=== PATIENT | male | born 1965 | race Caucasian/White ===

== ENCOUNTER → 2019-12-29 10:03 | Outpatient (BNVA) | payer MEDICARE, SELFPAY | PROVIDERS: Family Provider Nurse Practitioner Family; PCP Nurse Practitioner Family; Visit Provider Nurse Practitioner Family | DX: E11.65 Type 2 diabetes mellitus with hyperglycemia (principal); Z12.5 Encounter for screening for malignant neoplasm of prostate; Z79.4 Long term (current) use of insulin; I10 Essential (primary) hypertension; Z86.718 Personal history of other venous thrombosis and embolism; K21.9 Gastro-esophageal reflux disease without esophagitis; Z79.01 Long term (current) use of anticoagulants | CPT/HCPCS: 80053; 80061; 82044; 83036; 85025; 85610; G0103 ==

== ENCOUNTER → 2020-04-02 13:21 | Outpatient (BNVA) | payer MEDICARE, SELFPAY | PROVIDERS: Family Provider Nurse Practitioner Family; PCP Nurse Practitioner Family; Visit Provider Nurse Practitioner Family | DX: E11.9 Type 2 diabetes mellitus without complications (principal); I10 Essential (primary) hypertension; I73.9 Peripheral vascular disease, unspecified | CPT/HCPCS: 80053; 80061; 83036; 85025; 85610 ==

== ENCOUNTER 2020-04-14 13:08 | Outpatient (CLI) | payer MEDICARE, SELFPAY | END 2020-04-14 13:09 | disposition home or self-care (01) | LOC: WOUND 13:10 | PROVIDERS: Family Provider Nurse Practitioner Family; PCP Nurse Practitioner Family; Visit Provider Nurse Practitioner Family | DX: I87.2 Venous insufficiency (chronic) (peripheral) (principal); L97.812 Non-pressure chronic ulcer of other part of right lower leg with fat layer exposed | CPT/HCPCS: 11042 ==

== ENCOUNTER 2020-04-21 11:12 | Outpatient (CLI) | payer MEDICARE, SELFPAY | END 2020-04-21 11:13 | disposition home or self-care (01) | LOC: WOUND 11:14 | PROVIDERS: Family Provider Nurse Practitioner Family; PCP Nurse Practitioner Family; Visit Provider Thoracic Surgery (Cardiothoracic Vascular Surgery) | DX: I87.2 Venous insufficiency (chronic) (peripheral) (principal); L97.812 Non-pressure chronic ulcer of other part of right lower leg with fat layer exposed | CPT/HCPCS: 11042 ==

== ENCOUNTER 2020-04-28 10:32 | Outpatient (CLI) | payer MEDICARE, SELFPAY | END 2020-04-28 10:33 | disposition home or self-care (01) | LOC: WOUND 10:33 | PROVIDERS: Family Provider Nurse Practitioner Family; PCP Nurse Practitioner Family; Visit Provider Thoracic Surgery (Cardiothoracic Vascular Surgery) | DX: I87.2 Venous insufficiency (chronic) (peripheral) (principal); L97.812 Non-pressure chronic ulcer of other part of right lower leg with fat layer exposed | CPT/HCPCS: 11042 ==

== ENCOUNTER 2020-05-03 08:52 | Outpatient (CLI) | payer MEDICARE, SELFPAY ==
--- NOTE | 2020-05-03 09:02 | USCV_ITS ---
Tal Patricia Age: 54 Gender: M : 1965 Exam Date: 05/03/2020 09:03 Ordering Phys: Clark Nieves MD (Andy) ([email or web address]) Technologist: Steve Osorio Exam Location: [facility] – [place] Indication: HISTORY: PROCEDURES: FINDINGS: There is no evidence of RIGHT deep vein thrombosis. No evidence of superficial thrombosis in the RIGHT saphenous system. No evidence of reflux was noted in the RIGHT deep venous system. Reflux was noted in the RIGHT greater saphenous vein below the knee. All other vessels appear free of reflux at this time. CONCLUSIONS No evidence of DVT in the above-mentioned identifiable veins. Significant venous reflux of greater than 500 ms(1008msec ) was noted at the below-knee greater saphenous vein segment on the right side. The vein was measuring 0.27 cm in diameter at a depth of 1.24 cm. Relatively small caliber veins on the right side. The venous dimensions and the depth from the surface are as mentioned above Dr Vanna Hernandez MD FAC (Electronically Signed) Final Date: 03 May 2020 20:41 S
== END 2020-05-03 08:53 | disposition home or self-care (01) ==
LOC: US 08:54
PROVIDERS: PCP Nurse Practitioner Family; Visit Provider Thoracic Surgery (Cardiothoracic Vascular Surgery)
DX: M79.89 Other specified soft tissue disorders (principal); L97.919 Non-pressure chronic ulcer of unspecified part of right lower leg with unspecified severity
CPT/HCPCS: 93971

== ENCOUNTER 2020-05-05 10:56 | Outpatient (CLI) | payer MEDICARE, SELFPAY | END 2020-05-05 10:57 | disposition home or self-care (01) | LOC: WOUND 10:58 | PROVIDERS: PCP Nurse Practitioner Family; Visit Provider Thoracic Surgery (Cardiothoracic Vascular Surgery) | DX: Z09 Encounter for follow-up examination after completed treatment for conditions other than malignant neoplasm (principal) | CPT/HCPCS: 99212 ==

== ENCOUNTER → 2020-07-02 09:29 | Outpatient (BNVA) | payer MEDICARE, SELFPAY | PROVIDERS: PCP Nurse Practitioner Family; Visit Provider Nurse Practitioner Family | DX: E11.9 Type 2 diabetes mellitus without complications (principal); Z79.4 Long term (current) use of insulin; Z79.01 Long term (current) use of anticoagulants; I10 Essential (primary) hypertension; R19.7 Diarrhea, unspecified; I73.9 Peripheral vascular disease, unspecified; Z68.41 Body mass index [BMI] 40.0-44.9, adult | CPT/HCPCS: 80053; 80061; 83036; 85025; 85610 ==

== ENCOUNTER → 2020-07-15 10:55 | Outpatient (BNVA) | payer MEDICARE, SELFPAY | PROVIDERS: PCP Nurse Practitioner Family; Visit Provider Nurse Practitioner Family | DX: Z79.01 Long term (current) use of anticoagulants (principal); Z86.718 Personal history of other venous thrombosis and embolism | CPT/HCPCS: 82272; 85610 ==

== ENCOUNTER → 2020-08-12 10:01 | Outpatient (BNVA) | payer MEDICARE, SELFPAY | PROVIDERS: PCP Nurse Practitioner Family; Visit Provider Nurse Practitioner Family | DX: Z86.718 Personal history of other venous thrombosis and embolism (principal) | CPT/HCPCS: 85610 ==

== ENCOUNTER → 2020-10-05 09:56 | Outpatient (BNVA) | payer MEDICARE, SELFPAY | PROVIDERS: PCP Nurse Practitioner Family; Visit Provider Nurse Practitioner Family | DX: E11.65 Type 2 diabetes mellitus with hyperglycemia (principal); Z79.4 Long term (current) use of insulin; Z79.01 Long term (current) use of anticoagulants; K21.9 Gastro-esophageal reflux disease without esophagitis; I10 Essential (primary) hypertension | CPT/HCPCS: 80053; 80061; 83036; 85025; 85610 ==

== ENCOUNTER → 2020-11-12 14:50 | Outpatient (BNVA) | payer MEDICARE, SELFPAY | PROVIDERS: PCP Nurse Practitioner Family; Visit Provider Nurse Practitioner Family | DX: Z79.01 Long term (current) use of anticoagulants (principal); Z86.718 Personal history of other venous thrombosis and embolism | CPT/HCPCS: 85610 ==

== ENCOUNTER → 2020-11-18 11:50 | Outpatient (BNVA) | payer MEDICARE, SELFPAY | PROVIDERS: PCP Nurse Practitioner Family; Visit Provider Nurse Practitioner Family | DX: Z20.828 Contact with and (suspected) exposure to other viral communicable diseases (principal); J01.40 Acute pansinusitis, unspecified | CPT/HCPCS: 87635 ==

== ENCOUNTER → 2021-01-03 09:59 | Outpatient (BNVA) | payer MEDICARE, SELFPAY | PROVIDERS: PCP Nurse Practitioner Family; Visit Provider Nurse Practitioner Family | DX: E11.65 Type 2 diabetes mellitus with hyperglycemia (principal); I10 Essential (primary) hypertension; K21.9 Gastro-esophageal reflux disease without esophagitis; J30.89 Other allergic rhinitis; M53.3 Sacrococcygeal disorders, not elsewhere classified; M67.40 Ganglion, unspecified site; Z79.4 Long term (current) use of insulin; Z79.01 Long term (current) use of anticoagulants | CPT/HCPCS: 80053; 80061; 83036; 85025; 85610 ==

== ENCOUNTER → 2021-02-01 13:55 | Outpatient (BNVA) | payer MEDICARE, SELFPAY | PROVIDERS: PCP Nurse Practitioner Family; Visit Provider Nurse Practitioner Family | DX: Z79.01 Long term (current) use of anticoagulants (principal) | CPT/HCPCS: 85610; 87070; 87075; 87077; 87184; 87205 ==

== ENCOUNTER 2021-02-03 09:23 | Outpatient (CLI) | payer MEDICARE, SELFPAY | END 2021-02-03 09:24 | disposition home or self-care (01) | LOC: WOUND 09:24 | PROVIDERS: PCP Nurse Practitioner Family; Visit Provider Nurse Practitioner Family | DX: E11.622 Type 2 diabetes mellitus with other skin ulcer (principal); L97.822 Non-pressure chronic ulcer of other part of left lower leg with fat layer exposed | CPT/HCPCS: 11042; 11045; 87070; 87176; 87205; 99212 ==

== ENCOUNTER 2021-02-10 10:14 | Outpatient (CLI) | payer MEDICARE, SELFPAY | END 2021-02-10 10:15 | disposition home or self-care (01) | LOC: WOUND 10:15 | PROVIDERS: PCP Nurse Practitioner Family; Visit Provider Nurse Practitioner Family | DX: I87.2 Venous insufficiency (chronic) (peripheral) (principal); L97.822 Non-pressure chronic ulcer of other part of left lower leg with fat layer exposed | CPT/HCPCS: 11042 ==

== ENCOUNTER 2021-02-17 10:22 | Outpatient (CLI) | payer MEDICARE, SELFPAY | END 2021-02-17 10:23 | disposition home or self-care (01) | LOC: WOUND 10:23 | PROVIDERS: PCP Nurse Practitioner Family; Visit Provider Nurse Practitioner Family | DX: Z09 Encounter for follow-up examination after completed treatment for conditions other than malignant neoplasm (principal) | CPT/HCPCS: G0463 ==

== ENCOUNTER → 2021-03-15 09:50 | Outpatient (BNVA) | payer MEDICARE, SELFPAY | PROVIDERS: PCP Nurse Practitioner Family; Visit Provider Nurse Practitioner Family | DX: L03.116 Cellulitis of left lower limb (principal); E11.65 Type 2 diabetes mellitus with hyperglycemia; M79.672 Pain in left foot; Z79.4 Long term (current) use of insulin; Z79.01 Long term (current) use of anticoagulants; Z86.718 Personal history of other venous thrombosis and embolism | CPT/HCPCS: 73630; 80053; 85025; 85610 ==

== ENCOUNTER 2021-03-17 10:57 | Emergency (ER) | payer MEDICARE, SELFPAY ==
[2021-03-17 11:11] VITALS: BP 145/84; PULSE 84; RESP 17; O2SAT 99; BMI 42.9
--- NOTE | 2021-03-17 11:25 | XRR_ITS ---
PROCEDURE INFORMATION: Exam: XR Left Knee Exam date and time: 03/17/2021 11:28 AM Age: 55 years old Clinical indication: Injury or trauma; Fall; Blunt trauma; Knee; Left TECHNIQUE: Imaging protocol: XR Left knee. Views: 3 views. COMPARISON: CTA AbdAorta Runoff Leg [id number] 05/12/2019 9:25 AM FINDINGS: Bones/joints: No fracture, dislocation or other acute bone or joint abnormalities are seen in the left knee. There are mild degenerative changes. There is prominent atherosclerotic calcification. Soft tissues: Normal. XR/XR knee LT 3V* [id number] IMPRESSION: No acute abnormality.
--- NOTE | 2021-03-17 11:25 | XRR_ITS ---
PROCEDURE INFORMATION: Exam: XR Left Ankle Exam date and time: 03/17/2021 11:26 AM Age: 55 years old Clinical indication: Injury or trauma; Fall; Blunt trauma; Ankle; Left TECHNIQUE: Imaging protocol: XR Left ankle. Views: 1 or 2 views. COMPARISON: CTA AbdAorta Runoff Leg [id number] 05/12/2019 9:25 AM FINDINGS: Bones/joints: No fracture or other acute bony abnormalities are seen. Soft tissues: There is prominent soft tissue swelling around the ankle. Vasculature: Prominent atherosclerotic calcifications are present. There are multiple calcifications in the leg from venous stasis disease. XR/XR ankle LT 2V [id number] IMPRESSION: 1. Soft tissue swelling. 2. No fracture seen.
--- NOTE | 2021-03-17 11:25 | XRR_ITS ---
PROCEDURE INFORMATION: Exam: XR Left Foot Exam date and time: 03/17/2021 11:28 AM Age: 55 years old Clinical indication: Injury or trauma; Fall; Blunt trauma; Foot; Left TECHNIQUE: Imaging protocol: XR Left foot. Views: 1 or 2 views. COMPARISON: CR XR foot LT min 3V* [id number] 03/15/2021 10:04 AM FINDINGS: Bones/joints: No fracture, dislocation or other acute bone or joint abnormalities are seen in the left foot. Soft tissues: Normal. Vasculature: Prominent atherosclerotic calcifications are present. XR/XR foot LT 2V [id number] IMPRESSION: No acute abnormality.
--- NOTE | 2021-03-17 11:26 | USCV_ITS ---
Tal Patricia Age: 55 Gender: M : 1965 Exam Date: 03/17/2021 12:11 Ordering Phys: Ronaldo Rivers MD Technologist: Jennifer Jones Exam Location: [facility] – [place] Indication: RLE PAIN H/O DVT HISTORY: Lower extremity swelling. PROCEDURES: Venous duplex imaging was performed in only the left lower extremity. The following venous structures were evaluated: common femoral vein, profunda vein, proximal portion of the greater saphenous vein, superficial femoral vein, and the popliteal vein. In addition, the posterior tibial and peroneal trunk were evaluated. Serial compression, augmentation maneuvers, and spectral Doppler flow evaluation were performed. FINDINGS: Examination was technically limited due to body habitus. No evidence of DVT seen in any vessel visualized at this time. CONCLUSIONS No evidence of left lower extremity DVT. Rodríguez Burt MD (Electronically Signed) Final Date: 17 Mar 2021 16:39 S
--- NOTE | 2021-03-17 11:57 | ED_ITS ---
HPI - Extremity Problem General: Chief complaint: Extremity Injury, Lower Stated complaint: LEG PAIN POST FALL Time Seen by Provider: 03/17/21 11:06 History of Present Illness: HPI Narrative: The patient is a 55-year-old male with past medical history diabetes, peripheral vascular disease, history of DVT on Coumadin. He complains he fell this morning and has left knee and ankle pain. The ankle pain is the worst. He says his brother caught him and he did not fall that hard. He has been treated with Bactrim for the past 2 days for cellulitis to his left dorsal foot. He says it is not getting any better. His symptoms started 7 days ago on that foot. He said he called his physician this morning who told him to come to the ER for evaluation. MD Complaint: extremity pain and extremity swelling Onset (ago): day(s) (7) Pain Consistency: constant Location: left Quality: sharp Radiation: distal Relieving factors: nothing Exacerbating factors: range of motion, weight bearing and palpation Associated symptoms: Reports no associated symptoms; Deny chest pain or fever(s) Review of Systems General: Reports: 10 or more systems reviewed and unremarkable except in HPI and below Const: Denies: fever(s), chills or fatigue Eyes: Denies: change in vision, blurry vision or eye redness ENMT: Denies: throat pain, swelling of lips/tongue, ear or mastoid pain or nasal congestion Card: Denies: chest pain, palpitations, irregular heart rhythm, edema, dyspnea on exertion or orthopnea Resp: Denies: dyspnea, productive cough or non-productive cough GI: Denies: abdominal pain, diarrhea or GI cramping : Denies: flank pain, urinary frequency or urinary urgency Musc: Reports: extremity pain, extremity swelling and joint pain; Denies: neck pain, back pain, joint redness, limited range of motion or muscle weakness Skin/Breast: Reports: other (Left lower extremity cellulitis); Denies: pruritus, erythema, skin pain or skin tenderness Neuro: Denies: headache(s), numbness in extremities, weakness in extremities, sensory changes, difficulty walking, dizziness, confusion or Slurred speech present Psych: Denies: anxiety or depression Endo: Denies: polyuria All/Imm: Denies: urticaria, throat swelling or tongue swelling FOR[facility] ED PFSH: Medical History (Updated 03/17/21 @ 14:24 by Ronaldo Rivers MD) Anticoagulant long-term use Cellulitis of both lower extremities Diabetes mellitus Erectile dysfunction GERD (gastroesophageal reflux disease) History of colon polyps Hx of deep venous thrombosis Hypertension Neuropathy PVD (peripheral vascular disease) Surgical History Hx of colonoscopy Social History Smoking and tobacco status: never smoked Second hand smoke exposure: No Alcohol intake: never Lives independently: Yes Household members: spouse Marital status: Current occupational status: retired History of recent travel: No Current gender identity: Male Physical Exam Const: COMMON NORMALS: no acute distress, average body habitus, patient oriented x3, no limitations, healthy appearing, alert and well nourished GENERAL APPEARANCE: cooperative, comfortable, well kempt and well developed ORIENTATION/CONSCIOUSNESS: Yes awake, Yes oriented to person, Yes oriented to place and Yes oriented to time HENMT: COMMON NORMALS: normocephalic, external ears normal and Normal external nose present HEAD & SCALP: normal to inspection and normocephalic NOSE: Normal external nose present EXTERNAL EAR: Yes external ears normal MOUTH: Normal oral and palatal mucosa present THROAT: posterior oropharynx normal Eye: COMMON NORMALS: Equal, round and reactive pupils present and EOMs intact bilaterally GENERAL EYE: appearance normal, both eyes and all related structures PUPIL: Yes Equal, round and reactive pupils present Neck/C-Spine: COMMON NORMALS: full ROM, no lymphadenopathy, no meningeal signs and no JVD GENERAL: Yes normal visual inspection Lymph: LYMPHATIC: no lymphadenopathy noted Chest: COMMONS NORMALS: normal inspection of the chest and normal palpation of entire chest wall Resp: COMMON NORMALS: normal respiratory effort, No retractions, No use of accessory muscles, clear to auscultation bilaterally and percussion normal EFFORT & INSPECTION: Yes able to speak in complete sentences AUSCULTATION: clear to auscultation bilaterally PERCUSSION: percussion normal Cardio: COMMON NORMALS: no JVD, regular rate, regular rhythm, S1 normal heart sound present, S2 normal heart sound present and Peripheral pulses 2+ throughout RATE: regular rate RHYTHM: regular rhythm HEART SOUNDS: S1 normal heart sound present and S2 normal heart sound present PERIPHERAL PULSES: Peripheral pulses 2+ throughout GI: COMMON NORMALS: Normal to inspection, nondistended, normoactive bowel sounds present, Soft to palpation, non-tender and no masses INSPECTION: Yes normal to inspection PALPATION: Yes Soft to palpation : COMMON NORMALS: Yes no CVA tenderness BLADDER/KIDNEY EXAM: Yes no CVA tenderness Back/Pelvis: COMMON NORMALS: no CVA tenderness, thoracic and lumbar spine normal to inspection, no thoracic nor lumbar tenderness and thoraco-lumbar ROM normal Extremity: COMMON NORMALS: normal to inspection, full ROM, capillary refill normal, no joint enlargement and no pedal edema NARRATIVE EXTREMITY EXAM: Chronically in bilateral lower extremities from the distal knee to ankles he has hyperpigmentation and some scabbing which is extensive and chronic and unchanged per himself and his brother in the room. They said from his diabetes, vascular disease and previous DVT. Left ankle mild swelling, tenderness, pain with range of motion. Major ligaments intact. On the dorsal aspect of his foot he does have some erythema a likely cellulitis extending almost to the MTP joint. GENERAL: Yes normal exam except as noted Neuro: COMMON NORMALS: patient oriented x3, CN's II-XII intact bilaterally, moves all extremities, no focal motor deficits, no sensory deficits noted and gait normal SENSORIUM/ORIENTATION: Yes alert, Yes oriented to person, Yes oriented to place and Yes oriented to time MENINGEAL SIGNS: Yes no meningeal signs Psych: COMMON NORMALS: mental status grossly normal, Normal thought process present, cooperative, normal affect and speech normal APPEARANCE: Yes well kempt ATTITUDE: Yes calm SPEECH: Yes normal speech THOUGHT PROCESS: Normal thought process present Skin: COMMON NORMALS: no rashes or lesions noted GENERAL SKIN EXAM: no rashes or lesions noted Course Vital Signs: Vital signs: Vital Signs Pulse Rate 84 03/17/21 11:11 Respiratory Rate 17 03/17/21 11:11 Blood Pressure 145/84 03/17/21 11:11 Pulse Oximetry 99 03/17/21 11:11 MDM - Extremity (Nontraumatic) MDM Narrative: Medical decision making narrative: The patient came to the ER after a fall likely related to increased pain due to his cellulitis. He has been on Bactrim for 2 days. This medication is likely just starting to take effect and it does not appear worse based on my discussion with the primary care provider. I have drawn a line on it and he has an appointment to follow-up with her tomorrow for another skin check. No DVT or fractures. Likely sprained ankle. Recommended he check his sugars, blood pressures, and bring them in a diary to his primary care provider tomorrow. ER with worsening symptoms at any time Lab Data: Labs: Lab Results 03/17/21 03/17/21 03/17/21 Range/Units 12:00 12:00 12:00 WBC 11.5 H (4.0-10.0) 10^3/ uL RBC 4.34 (4.1-5.3) 10^6/u L Hgb 13.0 (11.7-16.6) g/dL Hct 39.6 L (42.0-52.0) % MCV 91.2 (80-94) fL MCH 30.0 (28.0-34.0) pg MCHC 32.8 (30.0-36.0) g/dL RDW 13.1 (12.1-15.1) % Plt Count 228 (130-400) 10^3/c mm MPV 9.4 (7.4-10.4) fL Neut % (Auto) 83.3 % Lymph % (Auto) 8.5 % [place] % (Auto) 7.0 % Eos % (Auto) 0.3 % Baso % (Auto) 0.4 % Neut # (Auto) 9.58 H (1.8-7.7) 10^3/u L Lymph # (Auto) 1.0 (0.8-4.8) 10^3/u L [place] # (Auto) 0.8 (0.2-0.9) 10^3/u L Eos # (Auto) 0.0 (0.0-0.8) 10^3/u L Baso # (Auto) 0.1 (0.0-0.1) 10^3/u L Nucleated RBC % (a uto) 0 % Nucleated RBCs # 0.0 /100WBC PT (12.1-14.9) SECO NDS INR (0.8-1.2) Sodium 133 L (136-145) mmol/L Potassium 4.7 (3.5-5.1) mmol/L Chloride 99 (98-107) mmol/L Carbon Dioxide 24 (22-29) mmol/L Anion Gap 14.7 (5-19) BUN 17 (6-20) mg/dL Creatinine 0.4 L (0.7-1.2) mg/dL GFR Calculation 221.7 H (90-130) mL/min Glucose 291 H (65-115) mg/dL Calculated Osmolal ity 288 (285-295) mOsm/k g Lactate 1.9 (0.5-2.2) mmol/L Calcium 8.3 L (8.5-10.5) mg/dL Total Bilirubin 0.5 (0.15-1.2) mg/dL AST 13 (0-40) U/L ALT 15 (0-41) U/L Alkaline Phosphata se 72 (40-130) IU/L Total Protein 6.9 (6.6-8.7) g/dL Albumin 3.7 (3.5-5.2) g/dL Globulin 3.2 (1.3-4.6) g/dL // Range/Units 12:17 WBC (4.0-10.0) 10^3/ uL RBC (4.1-5.3) 10^6/u L Hgb (11.7-16.6) g/dL Hct (42.0-52.0) % MCV (80-94) fL MCH (28.0-34.0) pg MCHC (30.0-36.0) g/dL RDW (12.1-15.1) % Plt Count (130-400) 10^3/c mm MPV (7.4-10.4) fL Neut % (Auto) % Lymph % (Auto) % [place] % (Auto) % Eos % (Auto) % Baso % (Auto) % Neut # (Auto) (1.8-7.7) 10^3/u L Lymph # (Auto) (0.8-4.8) 10^3/u L [place] # (Auto) (0.2-0.9) 10^3/u L Eos # (Auto) (0.0-0.8) 10^3/u L Baso # (Auto) (0.0-0.1) 10^3/u L Nucleated RBC % (a uto) % Nucleated RBCs # /100WBC PT 29.60 H (12.1-14.9) SECO NDS INR 2.76 H (0.8-1.2) Sodium (136-145) mmol/L Potassium (3.5-5.1) mmol/L Chloride (98-107) mmol/L Carbon Dioxide (22-29) mmol/L Anion Gap (5-19) BUN (6-20) mg/dL Creatinine (0.7-1.2) mg/dL GFR Calculation (90-130) mL/min Glucose (65-115) mg/dL Calculated Osmolal ity (285-295) mOsm/k g Lactate (0.5-2.2) mmol/L Calcium (8.5-10.5) mg/dL Total Bilirubin (0.15-1.2) mg/dL AST (0-40) U/L ALT (0-41) U/L Alkaline Phosphata se (40-130) IU/L Total Protein (6.6-8.7) g/dL Albumin (3.5-5.2) g/dL Globulin (1.3-4.6) g/dL Discharge Plan Discharge Patient Disposition: Home Clinical Impression: Cellulitis Condition: Stable Prescriptions: No Action (DME) insulin syringe-needle U-100 [BD Insulin Syringe Ultra-Fine] 1 mL 31 gauge x 5/16 syringe See Rx Instructions .ROUTE .MEDSUPPLY Qty: 10 RF: 0 cetirizine [Zyrtec] 10 mg tablet 10 mg PO DAILY PRN (Reason: allergy symptoms) Qty: 30 RF: 11 pravastatin 40 mg tablet 40 mg PO DAILY Qty: 90 RF: 0 Januvia 100 mg tablet 100 mg PO DAILY Qty: 90 RF: 0 metformin 500 mg tablet 1,000 mg PO BID Qty: 360 RF: 0 lisinopril 20 mg tablet 20 mg PO DAILY Qty: 90 RF: 0 famotidine 20 mg tablet 20 mg PO BID Qty: 180 RF: 0 glipizide 10 mg tablet See Rx Instructions PO BID 90 Days Qty: 270 RF: 0 warfarin 1 mg tablet 1 mg PO DAILY Qty: 90 RF: 0 Levemir FlexTouch U-100 Insuln 100 unit/mL (3 mL) insulin pen See Rx Instructions .ROUTE .COMPLEX Qty: 15 RF: 2 (DME) blood-glucose meter [Blood Glucose Monitoring] Kit See Rx Instructions .ROUTE .MEDSUPPLY Qty: 1 RF: 0 sulfamethoxazole-trimethoprim [Bactrim DS] 800-160 mg tablet 1 tab PO BID 10 Days Qty: 20 RF: 0 (DME) pen needle, diabetic [BD Ultra-Fine Micro Pen Needle] 32 gauge x 1/4 needle See Rx Instructions .ROUTE .MEDSUPPLY Qty: 100 RF: 11 (DME) Free Style Jeana Marston See Rx Instructions .Route .MEDSUPPLY Qty: 1 RF: 0 (DME) Free Style Jeana Sensor See Rx Instructions .Route .MEDSUPPLY Qty: 1 RF: 0 warfarin 6 mg tablet 6 mg PO DAILY RF: 0 triamterene-hydrochlorothiazid 75-50 mg tablet 1 tab PO DAILY RF: 0 Trulicity 0.75 mg/0.5 mL pen injector 0.75 mg SUBCUT Q7D RF: 0 Discharge Orders: Discharge ED (Routine); Ordered 03/17/21 Ordered By: Ronaldo Rivers Referrals: Maureen Solorzano FNP [Primary Care Provider] - Discharge Diet: Advance as tolerated Discharge Activity: Resume usual activity Patient Instructions: Opioid Safety Activity Restrictions/Additional Instructions: You have an infection of your left foot and you have been on Bactrim for the past 2 days. It is likely the antibiotic is just starting to take effect. Please follow-up with your primary care provider tomorrow as you already have scheduled for a check on this. Also check your blood sugars before meals and your blood pressure a few times today. Write down those values and bring it to your primary care provider tomorrow. Infections cause an increase in blood sugar and you may need mealtime insulin at that time depending on what your diary shows. Return to the ER at anytime with worsening symptoms. Coding Level of Care Code ED [employer] for [facility] Exam Comprehensive
[2021-03-17 12:13] LABS: Basophils # 0.1 10^3/uL (0.0-0.1); Basophils % 0.4 %; Eosinophils % 0.3 %; Hematocrit 39.6 % (42.0-52.0); Lymphocytes % 8.5 %; Mean Corpuscular HGB Conc 32.8 g/dL (30.0-36.0); Mean Corpuscular Volume 91.2 fL (80-94); Mean Platelet Volume 9.4 fL (7.4-10.4); Monocytes # 0.8 10^3/uL (0.2-0.9); Neutrophils # 9.58 10^3/uL (1.8-7.7); Neutrophils % 83.3 %; Nucleated Red Blood Cells % 0 %; Platelet Count 228 10^3/cmm (130-400); Red Blood Count 4.34 10^6/uL (4.1-5.3); Red Cell Distribution Width 13.1 % (12.1-15.1); White Blood Count 11.5 10^3/uL (4.0-10.0)
[2021-03-17 12:30] LABS: Lactate (Lactic Acid level) 1.9 mmol/L (0.5-2.2)
[2021-03-17 12:31] LABS: Alanine Aminotransferase 15 U/L (0-41); Albumin Level 3.7 g/dL (3.5-5.2); Alkaline Phosphatase 72 IU/L (40-130); Anion Gap 14.7 (5-19); Aspartate Amino Transferase 13 U/L (0-40); Blood Urea Nitrogen 17 mg/dL (6-20); Calcium 8.3 mg/dL (8.5-10.5); Carbon Dioxide 24 mmol/L (22-29); Chloride 99 mmol/L (98-107); Globulin 3.2 g/dL (1.3-4.6); Glomerular Filtration Rate 221.7 mL/min (90-130); Glucose 291 mg/dL (65-115); Osmolality Calculated 288 mOsm/kg (285-295); Potassium 4.7 mmol/L (3.5-5.1); Sodium 133 mmol/L (136-145); Total Bilirubin 0.5 mg/dL (0.15-1.2); Total Protein 6.9 g/dL (6.6-8.7)
[2021-03-17 12:34] LABS: INR 2.76 (0.8-1.2)
[2021-03-17] MEDS: vancomycin 1,000 MG in sodium chloride 0.9% 250 ML 250 MG IV (12:50)
== END 2021-03-17 14:38 | disposition home or self-care (01) ==
PROVIDERS: Emergency Provider Family Medicine; PCP Nurse Practitioner Family
DX: L03.116 Cellulitis of left lower limb (principal); Z79.01 Long term (current) use of anticoagulants; Z79.4 Long term (current) use of insulin; E11.40 Type 2 diabetes mellitus with diabetic neuropathy, unspecified; I73.9 Peripheral vascular disease, unspecified; I10 Essential (primary) hypertension
CPT/HCPCS: 36415; 73562; 73600; 73620; 80053; 83605; 85025; 85610; 87040; 87205; 93971; 96365; 96372; 99284; J1815; J3370; J7050

== ENCOUNTER 2021-03-25 14:23 | Outpatient (CLI) | payer MEDICARE, SELFPAY | END 2021-03-25 14:24 | disposition home or self-care (01) | LOC: WOUND 14:24 | PROVIDERS: PCP Nurse Practitioner Family; Visit Provider Surgery | DX: I96 Gangrene, not elsewhere classified (principal); L97.329 Non-pressure chronic ulcer of left ankle with unspecified severity | CPT/HCPCS: 10060; 11043; 87070; 87077; 87186; G0463 ==

== ENCOUNTER 2021-04-01 14:14 | Outpatient (CLI) | payer MEDICARE, SELFPAY | END 2021-04-01 14:15 | disposition home or self-care (01) | LOC: WOUND 14:15 | PROVIDERS: PCP Nurse Practitioner Family; Visit Provider Surgery | DX: L97.422 Non-pressure chronic ulcer of left heel and midfoot with fat layer exposed (principal); L97.812 Non-pressure chronic ulcer of other part of right lower leg with fat layer exposed | CPT/HCPCS: 11042; 97597; 97598 ==

== ENCOUNTER → 2021-04-04 09:23 | Outpatient (BNVA) | payer MEDICARE, SELFPAY | PROVIDERS: PCP Nurse Practitioner Family; Visit Provider Nurse Practitioner Family | DX: E11.65 Type 2 diabetes mellitus with hyperglycemia (principal); Z79.4 Long term (current) use of insulin; Z12.5 Encounter for screening for malignant neoplasm of prostate; I73.9 Peripheral vascular disease, unspecified; J30.89 Other allergic rhinitis; I10 Essential (primary) hypertension; K21.9 Gastro-esophageal reflux disease without esophagitis; Z79.01 Long term (current) use of anticoagulants; Z12.11 Encounter for screening for malignant neoplasm of colon | CPT/HCPCS: 80053; 80061; 82043; 83036; 85025; 85610; G0103 ==

== ENCOUNTER 2021-04-08 14:06 | Outpatient (CLI) | payer MEDICARE, SELFPAY | END 2021-04-08 14:07 | disposition home or self-care (01) | LOC: WOUND 14:07 | PROVIDERS: PCP Nurse Practitioner Family; Visit Provider Nurse Practitioner Family | DX: I87.2 Venous insufficiency (chronic) (peripheral) (principal); L97.322 Non-pressure chronic ulcer of left ankle with fat layer exposed; L97.812 Non-pressure chronic ulcer of other part of right lower leg with fat layer exposed | CPT/HCPCS: 11042 ==

== ENCOUNTER 2021-04-15 14:53 | Outpatient (CLI) | payer MEDICARE, SELFPAY | END 2021-04-15 14:54 | disposition home or self-care (01) | LOC: WOUND 14:55 | PROVIDERS: PCP Nurse Practitioner Family; Visit Provider Surgery | DX: I87.2 Venous insufficiency (chronic) (peripheral) (principal); L97.322 Non-pressure chronic ulcer of left ankle with fat layer exposed; L97.812 Non-pressure chronic ulcer of other part of right lower leg with fat layer exposed | CPT/HCPCS: 11042; 97597 ==

== ENCOUNTER 2021-04-22 14:52 | Outpatient (CLI) | payer MEDICARE, SELFPAY | END 2021-04-22 14:53 | disposition home or self-care (01) | LOC: WOUND 14:53 | PROVIDERS: PCP Nurse Practitioner Family; Visit Provider Surgery | DX: I87.2 Venous insufficiency (chronic) (peripheral) (principal); L97.322 Non-pressure chronic ulcer of left ankle with fat layer exposed; L97.812 Non-pressure chronic ulcer of other part of right lower leg with fat layer exposed | CPT/HCPCS: 11042 ==

== ENCOUNTER 2021-04-29 14:08 | Outpatient (CLI) | payer MEDICARE, SELFPAY | END 2021-04-29 14:09 | disposition home or self-care (01) | LOC: WOUND 14:09 | PROVIDERS: PCP Nurse Practitioner Family; Visit Provider Nurse Practitioner Family | DX: I87.2 Venous insufficiency (chronic) (peripheral) (principal); L97.322 Non-pressure chronic ulcer of left ankle with fat layer exposed | CPT/HCPCS: 11042 ==

== ENCOUNTER 2021-05-13 08:57 | Outpatient (CLI) | payer MEDICARE, SELFPAY | END 2021-05-13 08:58 | disposition home or self-care (01) | LOC: WOUND 08:58 | PROVIDERS: PCP Nurse Practitioner Family; Visit Provider Surgery | DX: I87.2 Venous insufficiency (chronic) (peripheral) (principal); L97.322 Non-pressure chronic ulcer of left ankle with fat layer exposed; L97.812 Non-pressure chronic ulcer of other part of right lower leg with fat layer exposed | CPT/HCPCS: 11042; 97597 ==

== ENCOUNTER 2021-05-20 09:24 | Outpatient (CLI) | payer MEDICARE, SELFPAY | END 2021-05-20 09:25 | disposition home or self-care (01) | LOC: WOUND 09:25 | PROVIDERS: PCP Nurse Practitioner Family; Visit Provider Surgery | DX: I87.2 Venous insufficiency (chronic) (peripheral) (principal); L97.322 Non-pressure chronic ulcer of left ankle with fat layer exposed; L97.812 Non-pressure chronic ulcer of other part of right lower leg with fat layer exposed | CPT/HCPCS: 11042; 97597 ==

== ENCOUNTER 2021-06-03 08:09 | Outpatient (CLI) | payer MEDICARE, SELFPAY | END 2021-06-03 08:10 | disposition home or self-care (01) | LOC: WOUND 08:10 | PROVIDERS: PCP Nurse Practitioner Family; Visit Provider Surgery | DX: Z09 Encounter for follow-up examination after completed treatment for conditions other than malignant neoplasm (principal) | CPT/HCPCS: 99212 ==

== ENCOUNTER → 2021-07-01 09:15 | Outpatient (BNVA) | payer MEDICARE, SELFPAY | PROVIDERS: PCP Nurse Practitioner Family; Visit Provider Nurse Practitioner Family | DX: E11.65 Type 2 diabetes mellitus with hyperglycemia (principal); I10 Essential (primary) hypertension; Z79.4 Long term (current) use of insulin; Z79.01 Long term (current) use of anticoagulants | CPT/HCPCS: 80053; 80061; 83036; 85025; 85610 ==

== ENCOUNTER → 2021-09-28 10:18 | Outpatient (BNVA) | payer MEDICARE, SELFPAY | PROVIDERS: PCP Nurse Practitioner Family; Visit Provider Nurse Practitioner Family | DX: E11.65 Type 2 diabetes mellitus with hyperglycemia (principal); M25.562 Pain in left knee; R19.00 Intra-abdominal and pelvic swelling, mass and lump, unspecified site; Z79.4 Long term (current) use of insulin; G89.29 Other chronic pain; I10 Essential (primary) hypertension; Z79.01 Long term (current) use of anticoagulants | CPT/HCPCS: 73562; 80053; 80061; 83036; 84443; 85025 ==

== ENCOUNTER 2022-02-15 09:03 | Outpatient (CLI) | payer MEDICARE, SELFPAY ==
--- NOTE | 2022-02-15 09:30 | MR_ITS ---
WS: [id number] MRI LUMBAR SPINE NONCONTRAST HISTORY: M54.42 - Lumbago with sciatica, left side COMPARISON: 06/11/2008 TECHNIQUE: Sagittal and axial multisequence imaging is submitted. Normal posterior lumbar alignment. No marrow edema or fracture. Mild disc desiccation with loss of height at L4-5 and L5-S1. Conus terminates normally at L1. T12-L1: Facet joint arthritis and ligamentum flavum hypertrophy encroaches into the posterior lateral thecal sac. L1-L2: Mild ligamentum flavum disease and facet joint arthritis. Very minimal narrowing of the LEFT f oramen. L2-L3: Mild ligamentum flavum hypertrophy and facet arthritis. Thecal sac is small but no significant stenosis. There is mild bilateral foraminal stenosis, LEFT slightly greater than RIGHT. L3-L4: Very mild annular disc bulging with moderate ligamentum flavum and facet arthritis. Disc conta cts the ventral thecal sac and also the traversing L4 nerve roots, RIGHT greater than LEFT. Mild suba rticular recess and foraminal stenosis. L4-L5: Diffuse asymmetric disc bulging extends greatest to the RIGHT with a focal RIGHT foraminal dis c protrusion and osteophytic ridging. Ligamentum flavum hypertrophy and facet arthritis. Small amount of fluid in the facet joints. Moderate central and bilateral subarticular recess stenosis has progre ssed since the prior study. There is moderate RIGHT foraminal stenosis with the disc and osteophyte c ontacting the RIGHT L4 and L5 nerve roots. Mild to moderate stenosis of the LEFT foramen. L5-S1: Mild annular disc bulging and osteophytic ridging. Mild facet and ligamentum flavum hypertroph y. There is mild disc and osteophyte contact on the ventral thecal sac and S1 nerve roots. Moderate R IGHT and mild LEFT foraminal stenosis. Fatty replacement with loss of psoas muscle volume. There is a large cystic area within the pelvis me asuring greater than 18 cm in length. This is probably the urinary bladder but it is markedly distend ed. MR/MR lumbar spine wo con* [id number] IMPRESSION: 1. RIGHT foraminal stenosis at L4-5 with disc osteophyte contacting the nerve roots. Very similar to the prior examination. 2. Moderate central and bilateral subarticular recess stenosis with mild to mo derate LEFT foraminal stenosis at L4-5. Mild progression since the prior study. 3. Moderate RIGHT and mild LEFT foraminal stenosis at L5-S1. Mild contact on t he S1 nerve roots bilaterally. 4. Mild bilateral foraminal stenosis at L2-3, LEFT greater than RIGHT. 5. Mild central, subarticular recess and foraminal stenosis L3-4. Very mild co ntact on the traversing L4 nerve roots. 6. There is a large cystic structure in the pelvis extending over length of 18 cm. Favor this is probably an overly distended, neurogenic urinary bladder.
== END 2022-02-15 09:04 | disposition home or self-care (01) ==
LOC: RAD 09:06
PROVIDERS: PCP Nurse Practitioner Family; Visit Provider Nurse Practitioner Family
DX: M54.41 Lumbago with sciatica, right side (principal); M54.42 Lumbago with sciatica, left side; M48.061 Spinal stenosis, lumbar region without neurogenic claudication; M25.78 Osteophyte, vertebrae; M48.07 Spinal stenosis, lumbosacral region
CPT/HCPCS: 72148

== ENCOUNTER → 2022-02-22 09:36 | Outpatient (BNVA) | payer MEDICARE, SELFPAY | PROVIDERS: PCP Nurse Practitioner Family; Visit Provider Nurse Practitioner Family | DX: Z12.5 Encounter for screening for malignant neoplasm of prostate (principal); G62.9 Polyneuropathy, unspecified; E11.65 Type 2 diabetes mellitus with hyperglycemia; Z79.4 Long term (current) use of insulin; S81.802A Unspecified open wound, left lower leg, initial encounter | CPT/HCPCS: 80053; 80061; 82043; 82306; 82607; 83036; 83735; 84550; 85025; 85651; 86038; 86140; 86200; 86431; 87070; 87075; 87205; G0103 ==

== ENCOUNTER → 2022-02-23 17:58 | Outpatient (BNVA) | payer MEDICARE, SELFPAY | PROVIDERS: PCP Nurse Practitioner Family; Visit Provider Nurse Practitioner Family | DX: G62.9 Polyneuropathy, unspecified (principal); E11.65 Type 2 diabetes mellitus with hyperglycemia; Z79.4 Long term (current) use of insulin; S81.802A Unspecified open wound, left lower leg, initial encounter; R26.81 Unsteadiness on feet; I73.9 Peripheral vascular disease, unspecified; M54.42 Lumbago with sciatica, left side; M54.41 Lumbago with sciatica, right side; Z86.718 Personal history of other venous thrombosis and embolism; N31.9 Neuromuscular dysfunction of bladder, unspecified; R53.83 Other fatigue; Z12.5 Encounter for screening for malignant neoplasm of prostate | CPT/HCPCS: 84403 ==

== ENCOUNTER → 2022-02-28 12:57 | Outpatient (BNVA) | payer MEDICARE, SELFPAY | PROVIDERS: PCP Nurse Practitioner Family; Referring Provider Nurse Practitioner Family; Visit Provider Physician Assistant | DX: M54.42 Lumbago with sciatica, left side (principal); M54.41 Lumbago with sciatica, right side; M51.36 Other intervertebral disc degeneration, lumbar region; E11.65 Type 2 diabetes mellitus with hyperglycemia; Z79.4 Long term (current) use of insulin; L60.3 Nail dystrophy; I73.9 Peripheral vascular disease, unspecified | CPT/HCPCS: 72100; 99204; 99999 ==

== ENCOUNTER → 2022-06-13 07:46 | Outpatient (BNVA) | payer MEDICARE, SELFPAY | PROVIDERS: PCP Nurse Practitioner Family; Visit Provider Nurse Practitioner Family | DX: E11.65 Type 2 diabetes mellitus with hyperglycemia (principal); E53.8 Deficiency of other specified B group vitamins; E55.9 Vitamin D deficiency, unspecified; I10 Essential (primary) hypertension; Z79.4 Long term (current) use of insulin; E11.9 Type 2 diabetes mellitus without complications | CPT/HCPCS: 80053; 80061; 82306; 82607; 83036; 84443; 85025 ==

== ENCOUNTER → 2022-06-21 12:58 | Outpatient (BNVA) | payer MEDICARE, SELFPAY | PROVIDERS: PCP Nurse Practitioner Family; Visit Provider Nurse Practitioner Family | DX: E11.65 Type 2 diabetes mellitus with hyperglycemia (principal); Z79.4 Long term (current) use of insulin; R06.02 Shortness of breath; L97.929 Non-pressure chronic ulcer of unspecified part of left lower leg with unspecified severity; R19.7 Diarrhea, unspecified; I10 Essential (primary) hypertension; Z86.718 Personal history of other venous thrombosis and embolism; R60.9 Edema, unspecified; R05.9 Cough, unspecified; G62.9 Polyneuropathy, unspecified; R19.5 Other fecal abnormalities; E55.9 Vitamin D deficiency, unspecified | CPT/HCPCS: 87070; 87075; 87205 ==

== ENCOUNTER → 2022-06-26 11:14 | Outpatient (BNVA) | payer MEDICARE, MEDICAID, SELFPAY | PROVIDERS: PCP Nurse Practitioner Family; Visit Provider Nurse Practitioner Family | DX: R19.7 Diarrhea, unspecified (principal) | CPT/HCPCS: 82270; 83630; 87338; 87493; 87506 ==

== ENCOUNTER → 2022-06-27 09:38 | Outpatient (BNVA) | payer MEDICARE, MEDICAID, SELFPAY | PROVIDERS: PCP Nurse Practitioner Family; Visit Provider Thoracic Surgery (Cardiothoracic Vascular Surgery) | DX: I96 Gangrene, not elsewhere classified (principal); E11.622 Type 2 diabetes mellitus with other skin ulcer; L97.822 Non-pressure chronic ulcer of other part of left lower leg with fat layer exposed | CPT/HCPCS: 97597; 99213 ==

== ENCOUNTER → 2022-07-10 07:35 | Outpatient (BNVA) | payer MEDICARE, MEDICAID, SELFPAY | PROVIDERS: PCP Nurse Practitioner Family; Visit Provider Nurse Practitioner Family | DX: I10 Essential (primary) hypertension (principal) | CPT/HCPCS: 80048 ==

== ENCOUNTER → 2022-07-18 10:13 | Outpatient (BNVA) | payer MEDICARE, MEDICAID, SELFPAY | PROVIDERS: PCP Nurse Practitioner Family; Visit Provider Thoracic Surgery (Cardiothoracic Vascular Surgery) | DX: E11.622 Type 2 diabetes mellitus with other skin ulcer (principal); L97.822 Non-pressure chronic ulcer of other part of left lower leg with fat layer exposed; I87.2 Venous insufficiency (chronic) (peripheral) | CPT/HCPCS: 97597 ==

== ENCOUNTER → 2022-07-21 11:45 | Outpatient (BNVA) | payer MEDICARE, MEDICAID, SELFPAY | PROVIDERS: PCP Nurse Practitioner Family; Visit Provider Family Medicine | DX: E87.6 Hypokalemia (principal); R60.9 Edema, unspecified | CPT/HCPCS: 80048 ==

== ENCOUNTER → 2022-07-25 12:23 | Outpatient (BNVA) | payer MEDICARE, MEDICAID, SELFPAY | PROVIDERS: PCP Nurse Practitioner Family; Referring Provider Nurse Practitioner Family; Visit Provider Specialist | DX: E11.40 Type 2 diabetes mellitus with diabetic neuropathy, unspecified (principal); E66.01 Morbid (severe) obesity due to excess calories; I87.2 Venous insufficiency (chronic) (peripheral); Z79.4 Long term (current) use of insulin; Z68.35 Body mass index [BMI] 35.0-35.9, adult | CPT/HCPCS: 99205 ==

== ENCOUNTER → 2022-08-01 09:45 | Outpatient (BNVA) | payer MEDICARE, MEDICAID, SELFPAY | PROVIDERS: PCP Nurse Practitioner Family; Visit Provider Nurse Practitioner Family | DX: E11.622 Type 2 diabetes mellitus with other skin ulcer (principal); I87.2 Venous insufficiency (chronic) (peripheral); L97.821 Non-pressure chronic ulcer of other part of left lower leg limited to breakdown of skin; Z09 Encounter for follow-up examination after completed treatment for conditions other than malignant neoplasm | CPT/HCPCS: 11042 ==

== ENCOUNTER → 2022-08-08 08:50 | Outpatient (BNVA) | payer MEDICARE, MEDICAID, SELFPAY | PROVIDERS: PCP Nurse Practitioner Family; Visit Provider Nurse Practitioner Family | DX: I96 Gangrene, not elsewhere classified; E11.622 Type 2 diabetes mellitus with other skin ulcer; L97.811 Non-pressure chronic ulcer of other part of right lower leg limited to breakdown of skin; L97.821 Non-pressure chronic ulcer of other part of left lower leg limited to breakdown of skin; E11.40 Type 2 diabetes mellitus with diabetic neuropathy, unspecified | CPT/HCPCS: 99213; A6252 ==

== ENCOUNTER → 2022-08-15 11:10 | Outpatient (BNVA) | payer MEDICARE, MEDICAID, SELFPAY | PROVIDERS: PCP Nurse Practitioner Family; Visit Provider Podiatrist Foot & Ankle Surgery | DX: E11.8 Type 2 diabetes mellitus with unspecified complications (principal); I73.9 Peripheral vascular disease, unspecified; E11.65 Type 2 diabetes mellitus with hyperglycemia; Z79.4 Long term (current) use of insulin; L60.3 Nail dystrophy | CPT/HCPCS: 99213; 99214 ==

== ENCOUNTER → 2022-08-22 08:44 | Outpatient (BNVA) | payer MEDICARE, MEDICAID, SELFPAY | PROVIDERS: PCP Nurse Practitioner Family; Visit Provider Nurse Practitioner Family | DX: I96 Gangrene, not elsewhere classified (principal); E11.622 Type 2 diabetes mellitus with other skin ulcer; L97.821 Non-pressure chronic ulcer of other part of left lower leg limited to breakdown of skin; L97.811 Non-pressure chronic ulcer of other part of right lower leg limited to breakdown of skin | CPT/HCPCS: 11042; A6212 ==

== ENCOUNTER → 2022-08-29 08:27 | Outpatient (BNVA) | payer MEDICARE, MEDICAID, SELFPAY | PROVIDERS: PCP Nurse Practitioner Family; Visit Provider Nurse Practitioner Family | DX: I96 Gangrene, not elsewhere classified (principal); L89.611 Pressure ulcer of right heel, stage 1; E11.621 Type 2 diabetes mellitus with foot ulcer; Z09 Encounter for follow-up examination after completed treatment for conditions other than malignant neoplasm | CPT/HCPCS: 11042; A6212 ==

== ENCOUNTER → 2022-09-12 09:00 | Outpatient (BNVA) | payer MEDICARE, MEDICAID, SELFPAY | PROVIDERS: PCP Nurse Practitioner Family; Visit Provider Nurse Practitioner Family | DX: I96 Gangrene, not elsewhere classified (principal); E11.622 Type 2 diabetes mellitus with other skin ulcer; L89.611 Pressure ulcer of right heel, stage 1 | CPT/HCPCS: 11042; A6212 ==

== ENCOUNTER → 2022-09-19 09:08 | Outpatient (BNVA) | payer MEDICARE, MEDICAID, SELFPAY | PROVIDERS: PCP Nurse Practitioner Family; Visit Provider Nurse Practitioner Family | DX: I96 Gangrene, not elsewhere classified (principal); E11.621 Type 2 diabetes mellitus with foot ulcer; L89.611 Pressure ulcer of right heel, stage 1; E11.622 Type 2 diabetes mellitus with other skin ulcer; L97.821 Non-pressure chronic ulcer of other part of left lower leg limited to breakdown of skin; L97.811 Non-pressure chronic ulcer of other part of right lower leg limited to breakdown of skin | CPT/HCPCS: 11042; A6212 ==

== ENCOUNTER 2022-09-28 12:00 | Outpatient (CLI) | payer MEDICARE, MEDICAID, SELFPAY ==
--- NOTE | 2022-09-28 11:15 | US_ITS ---
WS: [id number] ULTRASOUND RENAL TECHNIQUE: Ultrasound examination of both kidneys. CLINICAL INFORMATION: R80.9 - Proteinuria, unspecified COMPARISON: None. FINDINGS: Technically difficult study due to body habitus. RIGHT: Right kidney is normal in size and appearance. Echogenicity: Normal. Cortical thickness: cm; Normal. Hydronephrosis: None. Perinephric fluid: None. Right kidney measures: 10.9 cm x 6.6 cm x 5.9 cm. LEFT: Left kidney is normal in size and appearance. Echogenicity: Normal. Cortical thickness: cm; Normal. Hydronephrosis: None. Perinephric fluid: None. Left kidney measures: 11.5 cm x 5.4 cm x 5.7 cm. Normal visualized aorta. Normal bladder. US/US renal BI* [id number] IMPRESSION: Technically difficult study. 1. Normal kidneys bilaterally 2. Normal bladder.
--- NOTE | 2022-09-28 15:34 | XRR_ITS ---
PROCEDURE INFORMATION: Exam: XR Chest Exam date and time: 09/28/2022 3:37 PM Age: 57 years old Clinical indication: Shortness of breath; Additional info: R06.02 - shortness of breath TECHNIQUE: Imaging protocol: Radiologic exam of the chest. Views: 2 views. COMPARISON: CT angio abd aorta runof [id number] 05/12/2019 9:25 AM FINDINGS: Lungs: Unremarkable. No consolidation. Pleural spaces: Unremarkable. No pleural effusion. No pneumothorax. Heart/Mediastinum: Unremarkable. No cardiomegaly. Bones/joints: Unremarkable. XR/XR chest 2V* [id number] IMPRESSION: No acute findings.
== END 2022-09-28 12:01 | disposition home or self-care (01) ==
LOC: RAD 12:06
PROVIDERS: PCP Nurse Practitioner Family; Visit Provider Nurse Practitioner Family
DX: E11.622 Type 2 diabetes mellitus with other skin ulcer (principal); L97.811 Non-pressure chronic ulcer of other part of right lower leg limited to breakdown of skin; R06.02 Shortness of breath; R80.9 Proteinuria, unspecified; G72.9 Myopathy, unspecified; L03.115 Cellulitis of right lower limb; L03.116 Cellulitis of left lower limb; N31.9 Neuromuscular dysfunction of bladder, unspecified; E11.42 Type 2 diabetes mellitus with diabetic polyneuropathy; Z79.4 Long term (current) use of insulin; G56.01 Carpal tunnel syndrome, right upper limb
CPT/HCPCS: 11042; 71046; 76770; 95886; 95908; 99215

== ENCOUNTER → 2022-10-03 09:23 | Outpatient (BNVA) | payer MEDICARE, MEDICAID, SELFPAY | PROVIDERS: PCP Nurse Practitioner Family; Visit Provider Nurse Practitioner Family | DX: I96 Gangrene, not elsewhere classified (principal); E11.622 Type 2 diabetes mellitus with other skin ulcer; L97.822 Non-pressure chronic ulcer of other part of left lower leg with fat layer exposed | CPT/HCPCS: 99212 ==

== ENCOUNTER 2022-10-09 06:00 | Outpatient (RCR) | payer MEDICARE, MEDICAID, SELFPAY | END 2022-10-28 23:59 | disposition home or self-care (01) | LOC: SOT 06:00 | PROVIDERS: PCP Nurse Practitioner Family; Visit Provider Nurse Practitioner Family | DX: G35 Multiple sclerosis (principal) | CPT/HCPCS: 97167 ==

== ENCOUNTER → 2022-10-18 14:06 | Outpatient (BNVA) | payer MEDICARE, MEDICAID, SELFPAY | PROVIDERS: PCP Nurse Practitioner Family; Visit Provider Thoracic Surgery (Cardiothoracic Vascular Surgery) | DX: E11.622 Type 2 diabetes mellitus with other skin ulcer (principal); L97.811 Non-pressure chronic ulcer of other part of right lower leg limited to breakdown of skin; Z09 Encounter for follow-up examination after completed treatment for conditions other than malignant neoplasm | CPT/HCPCS: 97597; 97598 ==

== ENCOUNTER 2022-10-24 10:49 | Outpatient (CLI) | payer MEDICARE, MEDICAID, SELFPAY ==
--- NOTE | 2022-10-24 11:00 | MR_ITS ---
WS: [id number] MRI THORACIC SPINE noncontrast. HISTORY: G72.9 - Myopathy, unspecified COMPARISON: None available. TECHNIQUE: Multiplanar sequences are performed in sagittal and axial planes. Mild curvature thoracic spine. Posterior alignment is normal. Signal within the cord is normal. No at rophy or enlargement. Conus tapers normally and ends near T12-L1. The very distal conus is difficult to visualize due to its distal position from the center of the image and motion. Axial images are limited by significant motion artifact. T1-2: Normal. T2-3: Significant motion. T3-4: Facet arthritis and motion. T4-5: No significant stenosis. Facet joint arthritis. Motion artifact. T5-6: Mild bilateral facet joint arthritis. T6-7: Facet joint arthritis encroaching into the thecal sac with mild foraminal narrowing. RIGHT ner ve root sleeve diverticulum. T7-8: Moderate facet joint arthritis and ligamentum flavum encroaching into the thecal sac. Mild khris tral and bilateral foraminal stenosis. Motion artifact. T8-9: Facet joint arthritis and foraminal narrowing. T9-10: Bilateral facet joint arthritis. Mild central and bilateral foraminal stenosis. Motion artifa ct. T10-11: Marked encroachment into the thecal sac. Severe facet joint arthritis encroaching into the t hecal sac. Moderate central and bilateral foraminal stenosis. T11-12: Facet joint arthritis. Mild to moderate central and foraminal stenosis. Paravertebral soft tissues are negative. MR/MR thoracic spin wo con* [id number] IMPRESSION: 1. Quality of this examination is compromised by significant breathing motion artifact on the axial imaging. 2. Moderate central and bilateral foraminal stenosis that T10-11 and mild to m oderate at T11-12. 3. Mild central and bilateral foraminal stenosis at T7-8 and T9-10. 4. No signal abnormality within the cord. The distal cord and at the conus is not well visualized.
== END 2022-10-24 10:50 | disposition home or self-care (01) ==
LOC: RAD 10:50
PROVIDERS: PCP Nurse Practitioner Family; Visit Provider Specialist
DX: G72.9 Myopathy, unspecified (principal); M54.41 Lumbago with sciatica, right side; M54.42 Lumbago with sciatica, left side; R29.898 Other symptoms and signs involving the musculoskeletal system
CPT/HCPCS: 72146; 99203

== ENCOUNTER → 2022-10-25 15:19 | Outpatient (BNVA) | payer MEDICARE, MEDICAID, SELFPAY | PROVIDERS: PCP Nurse Practitioner Family; Visit Provider Surgery | DX: L89.612 Pressure ulcer of right heel, stage 2 (principal); L97.829 Non-pressure chronic ulcer of other part of left lower leg with unspecified severity; G35 Multiple sclerosis; I87.2 Venous insufficiency (chronic) (peripheral) | CPT/HCPCS: 97597; 97598 ==

== ENCOUNTER → 2022-10-26 11:59 | Outpatient (BNVA) | payer MEDICARE, MEDICAID, SELFPAY | PROVIDERS: PCP Nurse Practitioner Family; Visit Provider Nurse Practitioner Family | DX: E55.9 Vitamin D deficiency, unspecified (principal); E11.9 Type 2 diabetes mellitus without complications; Z79.4 Long term (current) use of insulin; I10 Essential (primary) hypertension; E11.42 Type 2 diabetes mellitus with diabetic polyneuropathy; R19.7 Diarrhea, unspecified | CPT/HCPCS: 80053; 80061; 82306; 83036; 84443; 85025 ==

== ENCOUNTER → 2022-11-01 14:52 | Outpatient (BNVA) | payer MEDICARE, MEDICAID, SELFPAY | PROVIDERS: PCP Nurse Practitioner Family; Visit Provider Thoracic Surgery (Cardiothoracic Vascular Surgery) | DX: I96 Gangrene, not elsewhere classified (principal); E11.622 Type 2 diabetes mellitus with other skin ulcer; L97.821 Non-pressure chronic ulcer of other part of left lower leg limited to breakdown of skin; L89.612 Pressure ulcer of right heel, stage 2 | CPT/HCPCS: 97597; 97598 ==

== ENCOUNTER → 2022-11-08 15:42 | Outpatient (BNVA) | payer MEDICARE, MEDICAID, SELFPAY | PROVIDERS: PCP Nurse Practitioner Family; Visit Provider Thoracic Surgery (Cardiothoracic Vascular Surgery) | DX: I96 Gangrene, not elsewhere classified (principal); E11.622 Type 2 diabetes mellitus with other skin ulcer; L97.821 Non-pressure chronic ulcer of other part of left lower leg limited to breakdown of skin; E11.621 Type 2 diabetes mellitus with foot ulcer; L89.612 Pressure ulcer of right heel, stage 2 | CPT/HCPCS: 11042; 97597; 97598; A6021 ==

== ENCOUNTER 2022-11-13 08:54 | Day surgery (SDC) | payer MEDICARE, MEDICAID, SELFPAY ==
[2022-11-10 10:31] VITALS: BMI 33.2
--- NOTE | 2022-11-10 19:58 | ANE.PACU2 ---
Inpatient post-anesthesia follow up: Airway intact: Yes Vital signs: Temperature Pulse Rate Respiratory Rate Blood Pressure Pulse Oximetry Oxygen Delivery Me thod Oxygen Flow Rate Fraction of Inspir ed Oxygen Hydration adequate: Yes Nausea and vomiting: No Pain level: 1 Mental status: Baseline
[2022-11-13] VITALS (9 sets, daily range): BP systolic 90–154; BP diastolic 50–87; PULSE 62–80; RESP 12–20; TEMP 36.3; O2SAT 98–100
[2022-11-13] MEDS: sodium chloride 0.9% 1,000 ML 30 ML IV (10:24)
[2022-11-13 10:28] LABS: Glucose Point of Care 215 mg/dL (70-110)
--- NOTE | 2022-11-13 10:37 | W.PM.OPSUD ---
Surgery/Procedure H&P Update DATE OF PROCEDURE: November 13, 2022 DATE H&P PERFORMED: 10/24/22 PREOP DIAGNOSIS: Myopathy PLANNED PROCEDURE: Operation Date: 11/13/22 11:00 Proposed Procedures p left quadrant muscle bx ,G72.9(Left) - Joey Dias DO
[2022-11-13 10:59] LABS: INR 1.19 (0.8-1.2)
[2022-11-13] MEDS: ceFAZolin 2,000 MG in sodium chloride 0.9% (plus) 50 ML 100 MG IV (11:01)
[2022-11-13 11:02] LABS: Anion Gap 11.4 (5-19); Blood Urea Nitrogen 13 mg/dL (6-20); Calcium 9.6 mg/dL (8.5-10.5); Carbon Dioxide 28 mmol/L (22-29); Chloride 100 mmol/L (98-107); Glomerular Filtration Rate 306.9 mL/min (90-130); Glucose 194 mg/dL (65-115); Osmolality Calculated 287 mOsm/kg (285-295); Potassium 3.4 mmol/L (3.5-5.1); Sodium 136 mmol/L (136-145)
--- NOTE | 2022-11-13 11:13 | ANES.PREANE2 ---
Pre-Anesthetic Assessment Height/Weight: Height 1.68 m Weight 93.44 kg Temp Pulse Resp BP Pulse Ox O2 Del Method 97.4 F L 79 18 154/87 100 11/13/22 10:14 11/13/22 10:14 11/13/22 10:14 11/13/22 10:14 11/13/22 10:14 11/13/22 10:15 Preop Diagnosis: Myopathy Operation Date: 11/13/22 11:00 Proposed Procedures p left quadrant muscle bx ,G72.9(Left) - Joey Dias DO Familial anesthetic complications: none Was Beta Real taken within 24 hours: N/A Was Clonidine taken within 24 hours: N/A Last intake: Intake Last Liquid Date 11/12/22 Last Liquid Time 20:00 Last Solid Date 11/12/22 Last Solid Time 17:00 Social No alcohol and No tobacco Exam alert, oriented x 3, clear to auscultation bilaterally and regular rate & rhythm Airway Submandibular: within normal limits Cervical ROM: within normal limits Mallampati: Class II Dentition: chipped and loose CV/HEM Coronary Artery Disease, Deep Vein Thrombosis, Hypertension and Peripheral Vascular Disease GI Gastroesophageal Reflux Disease Metabolic Diabetes Mellitus and Morbid Obesity Musc/skel Weakness Neuropsych Neuropathy Anesthetic Plan ASA status: 3 Medications/Allergies Home Medications Medication Instructions Recorded Confirmed Last Taken Type mDINR #1 ea 08/17/21 10/26/22 Unknown Rx blood-glucose meter (Blood Glucose #1 ea 11/02/21 10/26/22 Unknown Rx Monitoring kit) insulin syringe-needle U-100 1 mL #100 ea 02/22/22 10/26/22 Unknown Rx 31 gauge x 5/16 (BD Insulin Syringe Ultra-Fine) pen needle, diabetic 31 gauge x #100 ea 02/22/22 10/26/22 Unknown Rx 5/16 (BD Ultra-Fine Short Pen Needle) abel lift #1 ea 03/01/22 10/26/22 Unknown Rx insulin human U-100 NPH-regulr 50 unit (0.5 mL) SUBCUT BID 30 06/21/22 11/10/22 11/12/22 Rx 70-30 mix 100 unit/mL subcutaneous days #30 mL susp (Novolin 70/30 U-100 Insulin) blood sugar diagnostic (Blood #100 ea 08/08/22 10/26/22 Unknown Rx Glucose Test strips) gabapentin 100 mg capsule 100 mg PO DAILY #90 caps 10/16/22 11/10/22 11/12/22 Rx triamterene 75 1 tab PO DAILY #90 tabs 10/16/22 11/10/22 11/12/22 Rx mg-hydrochlorothiazide 50 mg tablet warfarin 1 mg tablet 1 mg PO DAILY #90 tabs 10/16/22 11/10/22 11/10/22 Rx warfarin 6 mg tablet 6 mg PO DAILY #90 tabs 10/16/22 11/10/22 11/10/22 Rx chlorthalidone 25 mg tablet 25 mg PO DAILY #30 tabs 10/26/22 11/10/22 11/12/22 Rx hospital bed with ability to #1 ea 10/29/22 10/29/22 Unknown Rx elevated HOB to 30 degrees hydrochlorothiazide 25 mg tablet 25 mg PO DAILY #30 tabs 11/02/22 11/10/22 11/10/22 Rx Allergies Allergy/AdvReac Type Severity Reaction Status Date / Time No Known Allergies Allergy Verified 10/26/22 09:19 Current Medications Generic Name Dose Route Start Last Admin Trade Name Freq PRN Reason Stop Dose Admin Sodium Chloride 1,000 mls @ 30 mls/hr 11/13/22 09:15 11/13/22 10:24 Sodium Chloride 0.9% IV 11/14/22 09:14 30 mls/hr .Q24H LOUIS Administration PFSH Anesthesia Medical History Anticoagulant long-term use Cellulitis of both lower extremities Diabetes mellitus Erectile dysfunction GERD (gastroesophageal reflux disease) History of colon polyps Hx of deep venous thrombosis Hypertension Mixed incontinence Neuropathy PVD (peripheral vascular disease) Vitamin D deficiency Surgical History Hx of colonoscopy Family History Other Diabetes Hypertension Social History Smoking and tobacco status: never smoked Second hand smoke exposure: No Alcohol intake: never Caregiver/support person: Yes (spouse) Lives independently: Yes Household members: spouse Marital status: service: No Current occupational status: retired History of recent travel: No Current gender identity: Male Special jesica needs: No Agree to transfusion: Yes Data Anesthesia 11/13/22 10:22 BMP 11/13/22 10:22 Sodium 136 Potassium 3.4 L Chloride 100 Carbon Dioxide 28 BUN 13 Creatinine 0.3 L Glucose 194 H Calcium 9.6 Coags 11/13/22 10:22 PT 15.40 H INR 1.19 Cardiac Studies: No Data to Display
[2022-11-13 12:00] LABS: Glucose Point of Care 164 mg/dL (70-110)
--- NOTE | 2022-11-13 12:08 | SUR.PHASEI ---
1150 PT TO PACU 5 AWAKE ALERT TALKATIVE, GOOD RESP EFFORT , NO DISTRESS NOTED LT ANTERIOR THIGH WITH SKIN GLUE TO SITE. BILAT FOOT PUMPS ON #20 TO RT FA WITH NS 500ML AT KVO RATE PER GRAVITY ID BRACELET TO RT WRIST, PT ID'D WITH 2 IDENTIFIERS.
--- NOTE | 2022-11-13 14:49 | ANE.PACU2 ---
Inpatient post-anesthesia follow up: Airway intact: Yes Vital signs: Temperature 97.4 F Pulse Rate 80 Respiratory Rate 18 Blood Pressure 130/79 Pulse Oximetry 100 Oxygen Delivery Me thod Room Air Oxygen Flow Rate 8 Fraction of Inspir ed Oxygen Hydration adequate: Yes Nausea and vomiting: No Pain level: 2 Mental status: Baseline
--- NOTE | 2022-11-13 16:40 | PM.OP ---
Operative Report Date of procedure: November 13, 2022 Pre-op diagnosis: Preop Diagnosis Myopathy Post-op diagnosis: same Procedure done: Left quadriceps muscle biopsy Implants: None Specimens removed/disposition: Left quadriceps muscle biopsy Surgeon: Dr. Joey Dias DO Anesthesia: General Estimated blood loss (mL): 5 Complications: None apparent Brief History: This is a very pleasant 57-year-old gentleman with myopathy. Neurology requested a left quadriceps muscle biopsy. Risks and benefits were explained and documented. Procedure: Patient was wheeled in the operative room placed on the OR table in supine position the left anterior thigh was inspected prepped and draped in usual sterile fashion. A timeout was performed. All present were in agreement. A 15 blade scalpel was used to make a 3-1/2 cm transverse incision in the mid anterior left thigh. Dissection was carried down through the fascia with electrocautery. Dissection was carried through the subcutaneous fat with electrocautery. The muscle sheath was then opened vertically with a 15 blade scalpel. Hemostats were placed on each edge of the muscle sheath. A 3-0 Vicryl suture was then placed through a piece of the left quadriceps muscle. Metzenbaum scissors were then used to excise a 1 cm? piece of quadriceps muscle. Electrocautery was used to control hemostasis. Specimen was passed off fresh. The muscle sheath was then closed with 3-0 Vicryl in a interrupted [id number] fashion. Dermis was closed with 3-0 Vicryl in an interrupted fashion skin was closed with 4-0 Monocryl in a running subcuticular fashion. Dermabond was applied. Patient tolerated procedure well.
== END 2022-11-13 13:05 | disposition home or self-care (01) ==
PROVIDERS: PCP Nurse Practitioner Family; Visit Provider Surgery
PROC: (CPT 20205; principal; 2022-11-13 10:50)
DX: G72.9 Myopathy, unspecified (principal); I25.10 Atherosclerotic heart disease of native coronary artery without angina pectoris; Z86.718 Personal history of other venous thrombosis and embolism; I10 Essential (primary) hypertension; I73.9 Peripheral vascular disease, unspecified; K21.9 Gastro-esophageal reflux disease without esophagitis; E66.01 Morbid (severe) obesity due to excess calories; Z68.33 Body mass index [BMI] 33.0-33.9, adult; E11.40 Type 2 diabetes mellitus with diabetic neuropathy, unspecified; Z79.4 Long term (current) use of insulin; Z79.01 Long term (current) use of anticoagulants
CPT/HCPCS: 20205; 36415; 36416; 80048; 82962; 85610; 88305; 88342; J0690; J2250; J3010; J7030

== ENCOUNTER → 2022-11-29 16:29 | Outpatient (BNVA) | payer MEDICARE, MEDICAID, SELFPAY | PROVIDERS: PCP Nurse Practitioner Family; Visit Provider Surgery | DX: G72.9 Myopathy, unspecified (principal) | CPT/HCPCS: 99024; 99212 ==

== ENCOUNTER → 2022-12-06 15:04 | Outpatient (BNVA) | payer MEDICARE, MEDICAID, SELFPAY | PROVIDERS: PCP Nurse Practitioner Family; Visit Provider Thoracic Surgery (Cardiothoracic Vascular Surgery) | DX: Z09 Encounter for follow-up examination after completed treatment for conditions other than malignant neoplasm (principal) | CPT/HCPCS: 99212 ==

== ENCOUNTER → 2022-12-18 15:58 | Outpatient (BNVA) | payer MEDICARE, MEDICAID, SELFPAY | PROVIDERS: PCP Nurse Practitioner Family; Visit Provider Specialist | DX: G71.00 Muscular dystrophy, unspecified (principal); G72.9 Myopathy, unspecified; E11.40 Type 2 diabetes mellitus with diabetic neuropathy, unspecified; Z79.4 Long term (current) use of insulin | CPT/HCPCS: 99214 ==

== ENCOUNTER → 2023-01-04 11:49 | Outpatient (BNVA) | payer MEDICARE, MEDICAID, SELFPAY | PROVIDERS: PCP Nurse Practitioner Family; Visit Provider Podiatrist Foot & Ankle Surgery | DX: I73.9 Peripheral vascular disease, unspecified (principal); E11.8 Type 2 diabetes mellitus with unspecified complications; E11.65 Type 2 diabetes mellitus with hyperglycemia; Z79.4 Long term (current) use of insulin; L60.3 Nail dystrophy | CPT/HCPCS: 11721 ==

== ENCOUNTER → 2023-02-06 08:40 | Outpatient (BNVA) | payer MEDICARE, MEDICAID, SELFPAY | PROVIDERS: PCP Nurse Practitioner Family; Visit Provider Nurse Practitioner Family | DX: E55.9 Vitamin D deficiency, unspecified (principal); E11.9 Type 2 diabetes mellitus without complications; Z79.4 Long term (current) use of insulin; I10 Essential (primary) hypertension; E11.42 Type 2 diabetes mellitus with diabetic polyneuropathy | CPT/HCPCS: 80053; 80061; 82306; 83036; 85025 ==

== ENCOUNTER → 2023-03-27 09:41 | Outpatient (BNVA) | payer MEDICARE, MEDICAID, SELFPAY | PROVIDERS: PCP Nurse Practitioner Family; Visit Provider Podiatrist Foot & Ankle Surgery | DX: I73.9 Peripheral vascular disease, unspecified (principal); E11.65 Type 2 diabetes mellitus with hyperglycemia; Z79.4 Long term (current) use of insulin; L60.3 Nail dystrophy; M21.172 Varus deformity, not elsewhere classified, left ankle; M21.171 Varus deformity, not elsewhere classified, right ankle | CPT/HCPCS: 11721; 99214 ==

== ENCOUNTER → 2023-03-28 13:07 | Outpatient (BNVA) | payer MEDICARE, MEDICAID, SELFPAY | PROVIDERS: PCP Nurse Practitioner Family; Visit Provider Thoracic Surgery (Cardiothoracic Vascular Surgery) | DX: I96 Gangrene, not elsewhere classified (principal); E11.622 Type 2 diabetes mellitus with other skin ulcer; L97.822 Non-pressure chronic ulcer of other part of left lower leg with fat layer exposed; E11.621 Type 2 diabetes mellitus with foot ulcer; L97.412 Non-pressure chronic ulcer of right heel and midfoot with fat layer exposed | CPT/HCPCS: 11042; 97597; 99213 ==

== ENCOUNTER → 2023-04-04 13:47 | Outpatient (BNVA) | payer MEDICARE, MEDICAID, SELFPAY | PROVIDERS: PCP Nurse Practitioner Family; Visit Provider Thoracic Surgery (Cardiothoracic Vascular Surgery) | DX: I96 Gangrene, not elsewhere classified (principal); E11.622 Type 2 diabetes mellitus with other skin ulcer; L97.822 Non-pressure chronic ulcer of other part of left lower leg with fat layer exposed; E11.621 Type 2 diabetes mellitus with foot ulcer; L89.612 Pressure ulcer of right heel, stage 2 | CPT/HCPCS: 11042; 97597 ==

== ENCOUNTER → 2023-04-11 14:13 | Outpatient (BNVA) | payer MEDICARE, MEDICAID, SELFPAY | PROVIDERS: PCP Nurse Practitioner Family; Visit Provider Thoracic Surgery (Cardiothoracic Vascular Surgery) | DX: E11.52 Type 2 diabetes mellitus with diabetic peripheral angiopathy with gangrene (principal); L97.822 Non-pressure chronic ulcer of other part of left lower leg with fat layer exposed; L89.612 Pressure ulcer of right heel, stage 2 | CPT/HCPCS: 11042; A6212 ==

== ENCOUNTER → 2023-04-18 13:03 | Outpatient (BNVA) | payer MEDICARE, MEDICAID, SELFPAY | PROVIDERS: PCP Nurse Practitioner Family; Visit Provider Thoracic Surgery (Cardiothoracic Vascular Surgery) | DX: E11.52 Type 2 diabetes mellitus with diabetic peripheral angiopathy with gangrene (principal); L97.822 Non-pressure chronic ulcer of other part of left lower leg with fat layer exposed | CPT/HCPCS: 11042; A6212 ==

== ENCOUNTER → 2023-04-20 09:24 | Outpatient (BNVA) | payer MEDICARE, MEDICAID, SELFPAY | PROVIDERS: PCP Nurse Practitioner Family; Visit Provider Nurse Practitioner Family | DX: E11.65 Type 2 diabetes mellitus with hyperglycemia (principal); Z79.4 Long term (current) use of insulin; E11.40 Type 2 diabetes mellitus with diabetic neuropathy, unspecified; E11.42 Type 2 diabetes mellitus with diabetic polyneuropathy; R19.7 Diarrhea, unspecified; E55.9 Vitamin D deficiency, unspecified; Z12.5 Encounter for screening for malignant neoplasm of prostate | CPT/HCPCS: 80053; 80061; 82306; 82607; 83036; 84443; 85025; G0103 ==

== ENCOUNTER → 2023-04-25 15:25 | Outpatient (BNVA) | payer MEDICARE, MEDICAID, SELFPAY | PROVIDERS: PCP Nurse Practitioner Family; Visit Provider Nurse Practitioner Family | DX: E11.52 Type 2 diabetes mellitus with diabetic peripheral angiopathy with gangrene (principal); L97.822 Non-pressure chronic ulcer of other part of left lower leg with fat layer exposed; L97.412 Non-pressure chronic ulcer of right heel and midfoot with fat layer exposed | CPT/HCPCS: 97597 ==

== ENCOUNTER → 2023-05-07 15:49 | Outpatient (BNVA) | payer MEDICARE, MEDICAID, SELFPAY | PROVIDERS: PCP Nurse Practitioner Family; Visit Provider Thoracic Surgery (Cardiothoracic Vascular Surgery) | DX: E11.52 Type 2 diabetes mellitus with diabetic peripheral angiopathy with gangrene (principal); L97.822 Non-pressure chronic ulcer of other part of left lower leg with fat layer exposed; L89.612 Pressure ulcer of right heel, stage 2 | CPT/HCPCS: 11042; A6212 ==

== ENCOUNTER → 2023-05-16 13:35 | Outpatient (BNVA) | payer MEDICARE, MEDICAID, SELFPAY | PROVIDERS: PCP Nurse Practitioner Family; Visit Provider Thoracic Surgery (Cardiothoracic Vascular Surgery) | DX: E11.52 Type 2 diabetes mellitus with diabetic peripheral angiopathy with gangrene (principal); L97.822 Non-pressure chronic ulcer of other part of left lower leg with fat layer exposed; L89.612 Pressure ulcer of right heel, stage 2 | CPT/HCPCS: 11042; 97597; A6212 ==

== ENCOUNTER → 2023-05-23 14:16 | Outpatient (BNVA) | payer MEDICARE, MEDICAID, SELFPAY | PROVIDERS: PCP Nurse Practitioner Family; Visit Provider Thoracic Surgery (Cardiothoracic Vascular Surgery) | DX: E11.52 Type 2 diabetes mellitus with diabetic peripheral angiopathy with gangrene (principal); L97.822 Non-pressure chronic ulcer of other part of left lower leg with fat layer exposed; L89.612 Pressure ulcer of right heel, stage 2; L89.892 Pressure ulcer of other site, stage 2 | CPT/HCPCS: 11042; 11045; A6210 ==

== ENCOUNTER → 2023-05-30 13:50 | Outpatient (BNVA) | payer MEDICARE, MEDICAID, SELFPAY | PROVIDERS: PCP Nurse Practitioner Family; Visit Provider Thoracic Surgery (Cardiothoracic Vascular Surgery) | DX: E11.52 Type 2 diabetes mellitus with diabetic peripheral angiopathy with gangrene (principal); L97.822 Non-pressure chronic ulcer of other part of left lower leg with fat layer exposed; L89.612 Pressure ulcer of right heel, stage 2; L89.892 Pressure ulcer of other site, stage 2 | CPT/HCPCS: 11042; 97597; A6220 ==

== ENCOUNTER → 2023-06-06 14:57 | Outpatient (BNVA) | payer MEDICARE, MEDICAID, SELFPAY | PROVIDERS: PCP Nurse Practitioner Family; Visit Provider Thoracic Surgery (Cardiothoracic Vascular Surgery) | DX: E11.52 Type 2 diabetes mellitus with diabetic peripheral angiopathy with gangrene (principal); L97.822 Non-pressure chronic ulcer of other part of left lower leg with fat layer exposed; L89.612 Pressure ulcer of right heel, stage 2; L89.892 Pressure ulcer of other site, stage 2 | CPT/HCPCS: 11042; 97597; 97598; A6212 ×2 ==

== ENCOUNTER → 2023-06-07 12:50 | Outpatient (BNVA) | payer MEDICARE, MEDICAID, SELFPAY | PROVIDERS: PCP Nurse Practitioner Family; Visit Provider Thoracic Surgery (Cardiothoracic Vascular Surgery) | DX: E11.621 Type 2 diabetes mellitus with foot ulcer (principal); L97.509 Non-pressure chronic ulcer of other part of unspecified foot with unspecified severity; M79.89 Other specified soft tissue disorders; I10 Essential (primary) hypertension; Z79.899 Other long term (current) drug therapy | CPT/HCPCS: 73630; 80053; 82306; 82607; 83880; 85025 ==

== ENCOUNTER → 2023-06-13 13:34 | Outpatient (BNVA) | payer MEDICARE, MEDICAID, SELFPAY | PROVIDERS: PCP Nurse Practitioner Family; Visit Provider Thoracic Surgery (Cardiothoracic Vascular Surgery) | DX: E11.52 Type 2 diabetes mellitus with diabetic peripheral angiopathy with gangrene (principal); L97.822 Non-pressure chronic ulcer of other part of left lower leg with fat layer exposed; L89.612 Pressure ulcer of right heel, stage 2; L89.892 Pressure ulcer of other site, stage 2 | CPT/HCPCS: 11042; 97597; 97598; A6210 ==

== ENCOUNTER 2023-06-14 09:09 | Outpatient (CLI) | payer MEDICARE, MEDICAID, SELFPAY ==
--- NOTE | 2023-06-14 09:30 | US_ITS ---
WS: [id number] Complete ABDOMINAL ULTRASOUND HISTORY: R14.0 - Abdominal distension (gaseous) COMPARISON: Renal ultrasound 09/28/2022. Technically limited evaluation due to body habitus. Liver: 12.7 cm in length. Coarse echotexture throughout the liver. Surface of the liver is slightly n odular. No mass or bile duct dilatation. Portal Vein: Normal hepatopetal flow with monophasic waveform. Gallbladder: Normally distended gallbladder with no stones or wall thickening. CBD: 0.7 cm, slightly prominent common bile duct. Pancreas: Normal size and echogenicity. Right kidney: 11.4 cm x 5.3 x 5.9 cm. Cortex:1.3 cm. Normal size and echogenicity. No hydronephrosis or mass. Left kidney: 10.1 cm x 5.2 cm x 5.8 cm. Cortex: 1.3 cm. Normal size and echogenicity. No hydronephrosis or mass. Spleen: Normal. Aorta and IVC: Unremarkable abdominal aorta and IVC. Impression: 1. Technically difficult evaluation of the abdominal structures due to body habitus. 2. Negative gallbladder. 3. Coarse echotexture throughout the liver. Consider hepatocellular disease such as cirrhosis. 4. No hydronephrosis. 5. Common bile duct is measuring top normal size. If further evaluation is thought clinically necessa ry MRCP may be helpful to better evaluate the common bile duct.
== END 2023-06-14 09:10 | disposition home or self-care (01) ==
LOC: RAD 09:12
PROVIDERS: PCP Nurse Practitioner Family; Visit Provider Nurse Practitioner Family
DX: R14.0 Abdominal distension (gaseous) (principal); R93.2 Abnormal findings on diagnostic imaging of liver and biliary tract
CPT/HCPCS: 76700

== ENCOUNTER → 2023-06-20 14:22 | Outpatient (BNVA) | payer MEDICARE, MEDICAID, SELFPAY | PROVIDERS: PCP Nurse Practitioner Family; Visit Provider Thoracic Surgery (Cardiothoracic Vascular Surgery) | DX: E11.52 Type 2 diabetes mellitus with diabetic peripheral angiopathy with gangrene (principal); L97.822 Non-pressure chronic ulcer of other part of left lower leg with fat layer exposed; L89.612 Pressure ulcer of right heel, stage 2; L89.892 Pressure ulcer of other site, stage 2 | CPT/HCPCS: 11042; 97597; A6210 ==

== ENCOUNTER → 2023-06-21 08:01 | Outpatient (BNVA) | payer MEDICARE, MEDICAID, SELFPAY | PROVIDERS: PCP Nurse Practitioner Family; Visit Provider Nurse Practitioner Family | DX: E87.6 Hypokalemia (principal) | CPT/HCPCS: 80048; 81000; 87426 ==

== ENCOUNTER → 2023-06-27 15:00 | Outpatient (BNVA) | payer MEDICARE, MEDICAID, SELFPAY | PROVIDERS: PCP Nurse Practitioner Family; Visit Provider Thoracic Surgery (Cardiothoracic Vascular Surgery) | DX: E11.52 Type 2 diabetes mellitus with diabetic peripheral angiopathy with gangrene (principal); L97.822 Non-pressure chronic ulcer of other part of left lower leg with fat layer exposed; L89.612 Pressure ulcer of right heel, stage 2; L89.892 Pressure ulcer of other site, stage 2 | CPT/HCPCS: 11042; 29581; 97597; 97598; A6210 ==

== ENCOUNTER → 2023-07-04 14:38 | Outpatient (BNVA) | payer MEDICARE, MEDICAID, SELFPAY | PROVIDERS: PCP Nurse Practitioner Family; Visit Provider Thoracic Surgery (Cardiothoracic Vascular Surgery) | DX: E11.52 Type 2 diabetes mellitus with diabetic peripheral angiopathy with gangrene (principal); L97.822 Non-pressure chronic ulcer of other part of left lower leg with fat layer exposed; L89.612 Pressure ulcer of right heel, stage 2; L89.892 Pressure ulcer of other site, stage 2 | CPT/HCPCS: 97597 ==

== ENCOUNTER → 2023-07-11 14:11 | Outpatient (BNVA) | payer MEDICARE, MEDICAID, SELFPAY | PROVIDERS: PCP Nurse Practitioner Family; Visit Provider Thoracic Surgery (Cardiothoracic Vascular Surgery) | DX: E11.52 Type 2 diabetes mellitus with diabetic peripheral angiopathy with gangrene (principal); L97.822 Non-pressure chronic ulcer of other part of left lower leg with fat layer exposed; L89.612 Pressure ulcer of right heel, stage 2; L89.892 Pressure ulcer of other site, stage 2 | CPT/HCPCS: 11042; 97597 ==

== ENCOUNTER → 2023-07-18 14:04 | Outpatient (BNVA) | payer MEDICARE, MEDICAID, SELFPAY | PROVIDERS: PCP Nurse Practitioner Family; Visit Provider Nurse Practitioner Family | DX: E11.52 Type 2 diabetes mellitus with diabetic peripheral angiopathy with gangrene (principal); L97.412 Non-pressure chronic ulcer of right heel and midfoot with fat layer exposed; L97.822 Non-pressure chronic ulcer of other part of left lower leg with fat layer exposed; L89.894 Pressure ulcer of other site, stage 4; L89.892 Pressure ulcer of other site, stage 2 | CPT/HCPCS: 11042; 97597; A6219 ==

== ENCOUNTER → 2023-07-25 09:36 | Outpatient (BNVA) | payer MEDICARE, MEDICAID, SELFPAY | PROVIDERS: PCP Nurse Practitioner Family; Visit Provider Thoracic Surgery (Cardiothoracic Vascular Surgery) | DX: E11.622 Type 2 diabetes mellitus with other skin ulcer (principal); L97.822 Non-pressure chronic ulcer of other part of left lower leg with fat layer exposed; L97.412 Non-pressure chronic ulcer of right heel and midfoot with fat layer exposed; L89.894 Pressure ulcer of other site, stage 4; S81.812A Laceration without foreign body, left lower leg, initial encounter; X58.XXXA Exposure to other specified factors, initial encounter | CPT/HCPCS: 11042; 97597 ==

== ENCOUNTER → 2023-08-01 09:00 | Outpatient (BNVA) | payer MEDICARE, MEDICAID, SELFPAY | PROVIDERS: PCP Nurse Practitioner Family; Visit Provider Thoracic Surgery (Cardiothoracic Vascular Surgery) | DX: E11.52 Type 2 diabetes mellitus with diabetic peripheral angiopathy with gangrene (principal); L97.822 Non-pressure chronic ulcer of other part of left lower leg with fat layer exposed; L89.612 Pressure ulcer of right heel, stage 2; L89.894 Pressure ulcer of other site, stage 4; S81.812D Laceration without foreign body, left lower leg, subsequent encounter; X58.XXXD Exposure to other specified factors, subsequent encounter | CPT/HCPCS: 11042; 97597 ==

== ENCOUNTER → 2023-08-08 13:42 | Outpatient (BNVA) | payer MEDICARE, MEDICAID, SELFPAY | PROVIDERS: PCP Nurse Practitioner Family; Visit Provider Thoracic Surgery (Cardiothoracic Vascular Surgery) | DX: E11.52 Type 2 diabetes mellitus with diabetic peripheral angiopathy with gangrene (principal); L97.822 Non-pressure chronic ulcer of other part of left lower leg with fat layer exposed; L89.612 Pressure ulcer of right heel, stage 2; L89.894 Pressure ulcer of other site, stage 4; L89.892 Pressure ulcer of other site, stage 2; L89.890 Pressure ulcer of other site, unstageable; S81.812D Laceration without foreign body, left lower leg, subsequent encounter; X58.XXXD Exposure to other specified factors, subsequent encounter | CPT/HCPCS: 11042; 97597; A6219 ==

== ENCOUNTER → 2023-08-15 10:00 | Outpatient (BNVA) | payer MEDICARE, MEDICAID, SELFPAY | PROVIDERS: PCP Nurse Practitioner Family; Visit Provider Thoracic Surgery (Cardiothoracic Vascular Surgery) | DX: L97.822 Non-pressure chronic ulcer of other part of left lower leg with fat layer exposed (principal); L89.612 Pressure ulcer of right heel, stage 2; E11.52 Type 2 diabetes mellitus with diabetic peripheral angiopathy with gangrene; L89.894 Pressure ulcer of other site, stage 4; S81.812D Laceration without foreign body, left lower leg, subsequent encounter; X58.XXXD Exposure to other specified factors, subsequent encounter; L89.890 Pressure ulcer of other site, unstageable; Z09 Encounter for follow-up examination after completed treatment for conditions other than malignant neoplasm | CPT/HCPCS: 97597 ==

== ENCOUNTER → 2023-08-22 13:04 | Outpatient (BNVA) | payer MEDICARE, MEDICAID, SELFPAY | PROVIDERS: PCP Nurse Practitioner Family; Visit Provider Nurse Practitioner Family | DX: E11.52 Type 2 diabetes mellitus with diabetic peripheral angiopathy with gangrene (principal); E11.622 Type 2 diabetes mellitus with other skin ulcer; L97.821 Non-pressure chronic ulcer of other part of left lower leg limited to breakdown of skin; L89.893 Pressure ulcer of other site, stage 3; L89.892 Pressure ulcer of other site, stage 2; L89.611 Pressure ulcer of right heel, stage 1; L89.891 Pressure ulcer of other site, stage 1 | CPT/HCPCS: 29581 ==

== ENCOUNTER → 2023-08-29 12:59 | Outpatient (BNVA) | payer MEDICARE, MEDICAID, SELFPAY | PROVIDERS: PCP Nurse Practitioner Family; Visit Provider Thoracic Surgery (Cardiothoracic Vascular Surgery) | DX: E11.52 Type 2 diabetes mellitus with diabetic peripheral angiopathy with gangrene (principal); E11.621 Type 2 diabetes mellitus with foot ulcer; L89.612 Pressure ulcer of right heel, stage 2; L97.411 Non-pressure chronic ulcer of right heel and midfoot limited to breakdown of skin; L97.529 Non-pressure chronic ulcer of other part of left foot with unspecified severity; Z09 Encounter for follow-up examination after completed treatment for conditions other than malignant neoplasm | CPT/HCPCS: 11042; 97597; A6197 ==

== ENCOUNTER → 2023-09-03 14:57 | Outpatient (BNVA) | payer MEDICARE, MEDICAID, SELFPAY | PROVIDERS: PCP Nurse Practitioner Family; Visit Provider Podiatrist Foot & Ankle Surgery | DX: I73.9 Peripheral vascular disease, unspecified (principal); E11.65 Type 2 diabetes mellitus with hyperglycemia; Z79.4 Long term (current) use of insulin; L60.3 Nail dystrophy; M21.171 Varus deformity, not elsewhere classified, right ankle; M21.172 Varus deformity, not elsewhere classified, left ankle | CPT/HCPCS: 11721 ==

== ENCOUNTER → 2023-09-05 13:40 | Outpatient (BNVA) | payer MEDICARE, MEDICAID, SELFPAY | PROVIDERS: PCP Nurse Practitioner Family; Visit Provider Thoracic Surgery (Cardiothoracic Vascular Surgery) | DX: E11.52 Type 2 diabetes mellitus with diabetic peripheral angiopathy with gangrene (principal); E11.621 Type 2 diabetes mellitus with foot ulcer; L89.612 Pressure ulcer of right heel, stage 2; L89.894 Pressure ulcer of other site, stage 4; L89.890 Pressure ulcer of other site, unstageable; E11.622 Type 2 diabetes mellitus with other skin ulcer; L97.811 Non-pressure chronic ulcer of other part of right lower leg limited to breakdown of skin; L97.821 Non-pressure chronic ulcer of other part of left lower leg limited to breakdown of skin | CPT/HCPCS: 11042; 97597; A6252 ==

== ENCOUNTER → 2023-09-12 13:33 | Outpatient (BNVA) | payer MEDICARE, MEDICAID, SELFPAY | PROVIDERS: PCP Nurse Practitioner Family; Visit Provider Thoracic Surgery (Cardiothoracic Vascular Surgery) | DX: E11.52 Type 2 diabetes mellitus with diabetic peripheral angiopathy with gangrene (principal); E11.621 Type 2 diabetes mellitus with foot ulcer; L89.612 Pressure ulcer of right heel, stage 2; L89.894 Pressure ulcer of other site, stage 4; Z09 Encounter for follow-up examination after completed treatment for conditions other than malignant neoplasm; E11.622 Type 2 diabetes mellitus with other skin ulcer; L97.821 Non-pressure chronic ulcer of other part of left lower leg limited to breakdown of skin | CPT/HCPCS: 11042; 97597; A6252 ==

== ENCOUNTER → 2023-09-14 10:15 | Outpatient (BNVA) | payer MEDICARE, MEDICAID, SELFPAY | PROVIDERS: PCP Nurse Practitioner Family; Visit Provider Nurse Practitioner Family | DX: E11.65 Type 2 diabetes mellitus with hyperglycemia (principal); E55.9 Vitamin D deficiency, unspecified; Z79.4 Long term (current) use of insulin; Z23 Encounter for immunization; Z79.899 Other long term (current) drug therapy | CPT/HCPCS: 80053; 80061; 82306; 82607; 83036; 83735; 84443; 85025 ==

== ENCOUNTER → 2023-09-19 09:37 | Outpatient (BNVA) | payer MEDICARE, MEDICAID, SELFPAY | PROVIDERS: PCP Nurse Practitioner Family; Visit Provider Thoracic Surgery (Cardiothoracic Vascular Surgery) | DX: E11.52 Type 2 diabetes mellitus with diabetic peripheral angiopathy with gangrene (principal); E11.622 Type 2 diabetes mellitus with other skin ulcer; L97.821 Non-pressure chronic ulcer of other part of left lower leg limited to breakdown of skin; E11.621 Type 2 diabetes mellitus with foot ulcer; L89.612 Pressure ulcer of right heel, stage 2; L89.894 Pressure ulcer of other site, stage 4 | CPT/HCPCS: 11042; 97597 ==

== ENCOUNTER → 2023-10-03 09:49 | Outpatient (BNVA) | payer MEDICARE, MEDICAID, SELFPAY | PROVIDERS: PCP Nurse Practitioner Family; Visit Provider Thoracic Surgery (Cardiothoracic Vascular Surgery) | DX: E11.52 Type 2 diabetes mellitus with diabetic peripheral angiopathy with gangrene (principal); E11.622 Type 2 diabetes mellitus with other skin ulcer; L97.821 Non-pressure chronic ulcer of other part of left lower leg limited to breakdown of skin; L89.894 Pressure ulcer of other site, stage 4; L89.612 Pressure ulcer of right heel, stage 2 | CPT/HCPCS: 11043; 87070; 87077; 87176; 87186; 87205; 97597 ==

== ENCOUNTER → 2023-10-10 12:57 | Outpatient (BNVA) | payer MEDICARE, MEDICAID, SELFPAY | PROVIDERS: PCP Nurse Practitioner Family; Visit Provider Thoracic Surgery (Cardiothoracic Vascular Surgery) | DX: E11.52 Type 2 diabetes mellitus with diabetic peripheral angiopathy with gangrene (principal); E11.621 Type 2 diabetes mellitus with foot ulcer; L89.612 Pressure ulcer of right heel, stage 2; L89.894 Pressure ulcer of other site, stage 4; E11.622 Type 2 diabetes mellitus with other skin ulcer; L97.821 Non-pressure chronic ulcer of other part of left lower leg limited to breakdown of skin | CPT/HCPCS: 11042; 97597 ==

== ENCOUNTER → 2023-10-17 13:44 | Outpatient (BNVA) | payer MEDICARE, MEDICAID, SELFPAY | PROVIDERS: PCP Nurse Practitioner Family; Visit Provider Thoracic Surgery (Cardiothoracic Vascular Surgery) | DX: E11.52 Type 2 diabetes mellitus with diabetic peripheral angiopathy with gangrene (principal); E11.621 Type 2 diabetes mellitus with foot ulcer; L89.612 Pressure ulcer of right heel, stage 2; L97.411 Non-pressure chronic ulcer of right heel and midfoot limited to breakdown of skin; E11.622 Type 2 diabetes mellitus with other skin ulcer; L97.821 Non-pressure chronic ulcer of other part of left lower leg limited to breakdown of skin | CPT/HCPCS: 11042; 97597; 97598; A6212 ==

== ENCOUNTER 2023-10-25 07:49 | Outpatient (CLI) | payer MEDICARE, MEDICAID, SELFPAY ==
[2023-10-25] MEDS: iohexol 350 mg/mL 500 mL Btl (per mL) IV (08:29)
--- NOTE | 2023-10-25 08:30 | CTR_ITS ---
PROCEDURE INFORMATION: Exam: CT Right Lower Extremity Without and With Contrast, Foot Exam date and time: 10/25/2023 8:27 AM Age: 58 years old Clinical indication: Condition or disease; Other: Non healing wound on foot; Patient HX: Non healing wound on right foot x 6 months; Additional info: Non healing wound, last bmp 08/2023. Request beatrice TECHNIQUE: Imaging protocol: CT of the right lower extremity without and with intravenous contrast was performed. Exam focused on the foot. Radiation optimization: All CT scans at this facility use at least one of these dose optimization techniques: automated exposure control; mA and/or kV adjustment per patient size (includes targeted exams where dose is matched to clinical indication); or iterative reconstruction. Contrast material: OMNIPAQUE 350; Contrast volume: 95 ml; Contrast route: INTRAVENOUS (IV); REPORTING DATA: Count of CT and Cardiac NM exams in prior 12 months: This patient has received 0 known CTs and 0 known cardiac nuclear medicine studies in the 12 months prior to the current study. COMPARISON: CR XR foot RT min 3V* [id number] 06/07/2023 12:48 PM RADIATION DOSE METRICS: Total DLP (mGy-cm): 373.6 FINDINGS: Bones/joints: There are new destructive changes/erosions involving the distal shaft through the head of the 5th metatarsal as well as involving the base of the proximal 5th phalanx. The bones appear demineralized. Moderate dorsal calcaneal enthesophyte formation is noted. Soft tissues: There is extensive diffuse muscular atrophy. A mild degree of diffuse subcutaneous edema is present. A bandage is noted along the plantar aspect of the 5th metatarsophalangeal joint where there is evidence of small amount of gas tracking within a skin wound. Skin thickening in this region is noted. Adjacent ill-defined ovoid hypodensity in the soft tissues is noted tracking along the plantar and lateral aspect of the 5th metatarsal, contiguous with the skin wound, best demonstrated on series 8 between images 90 and 110 measuring up to 1.7 x 1.3 x 4.3 cm. Vasculature: There are diffuse atherosclerotic changes. CT/CT foot RT wo/w con [id number] IMPRESSION: 1. Findings are consistent with osteomyelitis of the distal 5th metatarsal and the base of the 5th proximal phalanx. 2. An ovoid fluid collection in the soft tissues lateral to the 5th metatarsal is noted which appears contiguous with an adjacent skin wound compatible with a draining abscess or seroma. MRI with and without contrast may be useful for further assessment.
== END 2023-10-25 07:50 | disposition home or self-care (01) ==
LOC: RAD 07:49
PROVIDERS: PCP Nurse Practitioner Family; Visit Provider Thoracic Surgery (Cardiothoracic Vascular Surgery)
DX: E11.621 Type 2 diabetes mellitus with foot ulcer (principal); L97.509 Non-pressure chronic ulcer of other part of unspecified foot with unspecified severity; R93.6 Abnormal findings on diagnostic imaging of limbs
CPT/HCPCS: 73702; Q9967

== ENCOUNTER → 2023-11-06 15:19 | Outpatient (BNVA) | payer OTHER, MEDICAID, SELFPAY | PROVIDERS: PCP Nurse Practitioner Family; Visit Provider Podiatrist Foot & Ankle Surgery | DX: I73.9 Peripheral vascular disease, unspecified; E11.65 Type 2 diabetes mellitus with hyperglycemia; Z79.4 Long term (current) use of insulin; M21.171 Varus deformity, not elsewhere classified, right ankle; M21.172 Varus deformity, not elsewhere classified, left ankle; M86.8X7 Other osteomyelitis, ankle and foot | CPT/HCPCS: 73630 ==

== ENCOUNTER 2023-11-16 08:04 | Day surgery (SDC) | payer OTHER, MEDICAID, SELFPAY ==
[2023-11-16] VITALS (7 sets, daily range): BP systolic 121–176; BP diastolic 60–84; PULSE 69–78; RESP 18; TEMP 36.6–37.1; O2SAT 97–100; BMI 43.5
--- NOTE | 2023-11-16 08:38 | P.ANESASSM_ITS ---
Pre-Anesthetic Assessment Height/Weight: Height 1.68 m Weight 122.47 kg Temp Pulse Resp BP Pulse Ox O2 Del Method 98.1 F 78 18 176/78 100 Room Air 11/16/23 08:28 11/16/23 08:28 11/16/23 08:28 11/16/23 08:28 11/16/23 08:28 11/16/23 08:30 Preop Diagnosis: Osteomyelitis right foot Operation Date: 11/16/23 09:40 Proposed Procedures p Amputation Toe/Right fifth toe(Right) - Brandon Montgomery DPM s Incision And Drainage of Bone Cortex, right foot(Right) - Brandon Montgomery DPM Familial anesthetic complications: None Was Beta Real taken within 24 hours: N/A Was Clonidine taken within 24 hours: N/A Last intake: Intake Last Liquid Date 11/15/23 Last Liquid Time 18:00 Last Solid Date 11/15/23 Last Solid Time 18:00 Social No alcohol and No tobacco Exam alert, oriented x 3, clear to auscultation bilaterally and regular rate & rhythm Airway Mallampati: Class III Dentition: other (multiple missing) Pulmonary Sleep Apnea CV/HEM Deep Vein Thrombosis, Hypertension and Peripheral Vascular Disease GI Gastroesophageal Reflux Disease Metabolic Diabetes Mellitus and Morbid Obesity [facility] [place] muscular dystrophy Neuropsych multiple sclerosis affecting feet and legs Anesthetic Plan ASA status: 3 Anesthesia: MAC Risk of > 500 ml blood loss (7ml/kg in children): No Medications/Allergies Home Medications Medication Instructions Recorded Confirmed Last Taken Type mDINR #1 ea 08/17/21 11/06/23 Unknown Rx blood-glucose meter (Blood Glucose #1 ea 11/02/21 11/06/23 Unknown Rx Monitoring kit) abel lift #1 ea 03/01/22 11/06/23 Unknown Rx blood sugar diagnostic (Blood #100 ea 08/08/22 11/06/23 Unknown Rx Glucose Test strips) hospital bed with ability to #1 ea 10/29/22 11/06/23 Unknown Rx elevated HOB to 30 degrees pen needle, diabetic 31 gauge x #100 ea 01/05/23 11/06/23 Unknown Rx 5/16 (BD Ultra-Fine Short Pen Needle) Afo to the left foot #1 ea 03/27/23 11/06/23 Unknown Rx C pap-supplies #1 ea 05/04/23 11/06/23 Unknown Rx ibuprofen 800 mg tablet 800 mg PO Q8H PRN pain #90 tabs 06/21/23 11/15/23 Unknown Rx gabapentin 100 mg capsule 200 mg (2 x 100 mg) PO DAILY #180 09/14/23 11/15/23 11/14/23 20:00 Rx caps warfarin 6 mg tablet 6 mg PO DAILY #90 tabs 09/14/23 11/15/23 11/14/23 19:00 Rx dapagliflozin propanediol 10 mg 10 mg PO DAILY #90 tabs 09/19/23 11/15/23 11/15/23 07:00 Rx tablet (Farxiga) ergocalciferol (vitamin D2) 1,250 50,000 unit PO .every 7 days #12 09/19/23 11/15/23 11/11/23 Rx mcg (50,000 unit) capsule caps triamterene 75 1 tab PO DAILY #90 tabs 09/19/23 11/15/23 11/15/23 07:00 Rx mg-hydrochlorothiazide 50 mg tablet vitamin B complex 1 tab PO DAILY #90 tabs 09/19/23 11/15/23 11/15/23 Rx Juzos wraps bilaterally #1 ea 11/14/23 Unknown Rx insulin human U-100 NPH-regulr 50 unit (0.5 mL) SUBCUT BID #30 mL 11/15/23 11/15/23 Rx 70-30 mix 100 unit/mL subcutaneous susp (Novolin 70/30 U-100 Insulin) insulin syringe-needle U-100 1 mL #100 ea 11/15/23 Unknown Rx 31 gauge x 5/16 (BD Insulin Syringe Ultra-Fine) potassium citrate 5 mEq (540 mg) 5 meq PO DAILY No Known Home Meds 11/15/23 11/15/23 11/15/23 History tablet,extended release Allergies Allergy/AdvReac Type Severity Reaction Status Date / Time acetaminophen [From Percocet] Allergy ADR-Irritab Verified 11/16/23 08:24 le oxycodone [From Percocet] Allergy ADR-Irritab Verified 11/16/23 08:24 le [facility] Anesthesia Medical History Mixed incontinence Vitamin D deficiency Erectile dysfunction History of colon polyps PVD (peripheral vascular disease) Cellulitis of both lower extremities Hypertension Diabetes mellitus GERD (gastroesophageal reflux disease) Neuropathy Anticoagulant long-term use Hx of deep venous thrombosis Surgical History Hx of colonoscopy Family History Other Diabetes Hypertension Social History Smoking and tobacco/nicotine status: never used tobacco/nicotine Second hand smoke exposure: No Alcohol intake: never Substance/Drug Use: never Caregiver/support person: Yes (spouse) Lives independently: Yes Household members: spouse Marital status: service: No Current occupational status: retired Current gender identity: Male Special jesica needs: No Agree to transfusion: Yes Data Anesthesia Cardiac Studies: No Data to Display
--- NOTE | 2023-11-16 08:44 | W.PM.OPSUD ---
Surgery/Procedure H&P Update DATE OF PROCEDURE: November 16, 2023 DATE H&P PERFORMED: 11/06/23 H&P UPDATE INFORMATION: I have reviewed H&P completed within last 30 days, I have examined patient prior to procedure, No changes to prior documentation and [place] [facility] [place] PREOP DIAGNOSIS: Osteomyelitis right foot PLANNED PROCEDURE: Operation Date: 11/16/23 09:40 Proposed Procedures p Amputation Toe/Right fifth toe(Right) - Brandon Montgomery DPM s Incision And Drainage of Bone Cortex, right foot(Right) - Brandon Montgomery DPM
[2023-11-16] MEDS: sodium chloride 0.9% 1,000 ML 30 ML IV (08:54)
[2023-11-16 09:04] LABS: Glucose Point of Care 190 mg/dL (70-110)
[2023-11-16] MEDS: ceFAZolin 3,000 MG in sodium chloride 0.9% (plus) 100 ML 200 MG IV (09:07)
--- NOTE | 2023-11-16 09:10 | PC.NURSE ---
pulled cefazolin 1 g out of pixus and spiked it before relizing needed 3g. Called pharmacy talked to bisi informed top waste the 1g and use the 3 g.
[2023-11-16] MEDS: lidocaine 2% INJ 20 mL INJECTION (09:25)
--- NOTE | 2023-11-16 09:43 | P.BOP_ITS ---
Date of Procedure: 11/16/23 Surgeon: Brandon Montgomery DPM Stamping Die Maker(s): Chase Procedure(s) performed: Incision down to bone cortex right foot Findings of the procedure(s): Osteomyelitis right fifth metatarsal Estimated blood loss: 5 Specimen(s) removed: Bone right fifth metatarsal and proximal phalanx base Post-operative diagnosis: Osteomyelitis right foot No complications with anesthesia or procedure.
--- NOTE | 2023-11-16 09:43 | PM.OP ---
Operative Report Date of procedure: November 16, 2023 Pre-op diagnosis: Osteomyelitis right foot. Post-op diagnosis: Osteomyelitis right fifth metatarsal head and proximal phalanx base of right fifth toe Procedure done: Incision of bone cortex right fifth metatarsal. CPT code 11590 Implants: 3-0 nylon Specimens removed/disposition: Right fifth metatarsal bone sent to microbiology for Gram stain, culture and sensitivity. Pathology: None Surgeon: Brandon Montgomery DPM Document Management Analyst: Chase Estimated blood loss: 5 16 IV fluids: 0 Urine output: 0 Complications: None Brief History: Acute osteomyelitis right fifth metatarsal head. Recommended incision and debridement down to bone cortex and partial fifth ray amputation if indicated. Patient is agreeable. I reviewed at length with the patient, the risks, potential complications, benefits, alternatives, expectations, and typical outcomes associated with the surgery. The risks and potential complications were explained in detail, including but not limited to infection, wound dehiscence or soft tissue complications, bleeding and hematoma, chronic edema, neuritis or nerve damage producing numbness or chronic pain, CRPS, failure to relieve pain or worsening pain, thick / painful / unsightly scar, limited motion / stiffness, malposition, delayed union, malunion, or nonunion, fracture, reaction to implants, anesthetic complications, venous thromboembolism, and deformity recurrence. I discussed the notion of no regrets with the patient as it pertains to complications and outcomes. The patient seemed to understand the nature of the proposed care and required convalescence. They asked appropriate questions, answered to their satisfaction. They are aware no guarantees can be made as to a satisfactory outcome and they understand there may be other possible unforeseen complications or outcomes not listed here that will be treated accordingly if they arise. There were no written or implied guarantees given to the patient. They gave informed consent to proceed. Will continue warfarin perioperatively Procedure: Under mild sedation the patient was brought to the operating room and remained on the gurney in supine position. A timeout was performed. Anesthesia was administered by the anesthesia service. Local anesthesia was injected by myself consisting of 20 cc of one-to-one mixture 1% lidocaine and 0.5 to Marcaine plain and a right reverse Mendoza block fashion. Well-padded pneumatic tourniquet applied to the right ankle. The right lower extremity was scrubbed, prepped and draped utilizing normal aseptic technique. Right foot was elevated and tourniquet inflated to 250 mmHg. Attention was directed to the right foot where a full-thickness wound probing directly to bone subfifth metatarsal head was appreciated. A dorsal incision was made over the dorsal lateral aspect of the fifth metatarsal head through skin directly down to bone and bone was incised down to viable margin. Bone that was incised was sent to microbiology for Gram stain, culture and sensitivity. The incision was irrigated with copious amounts of sterile saline solution. No further devitalized bone was appreciated. Fifth toe was viable. After further irrigation the incision was closed with 3-0 nylon. Incision and wound were then dressed with Adaptic, sterile 4 x 4's, Kerlix and Devang wrap followed by application of a cam boot. Tourniquet was deflated and a prompt hyperemic response was noted to the distal digits of the right foot. Patient tolerated the procedure and anesthesia well and was transferred to the PACU with vital signs stable and vascular status intact. Following a period of postoperative monitoring he will be discharged home. He is to be nonweightbearing to the right lower extremity and elevate right foot while resting. He is given at home care instructions and scheduled follow-up as well as my cell phone number to contact with any postoperative questions or concerns.
--- NOTE | 2023-11-16 10:45 | ANE.PACU2 ---
Inpatient post-anesthesia follow up: Airway intact: Yes Vital signs: Temperature 97.8 F Pulse Rate 76 Respiratory Rate 18 Blood Pressure 147/84 Pulse Oximetry 98 Oxygen Delivery Me thod Room Air Oxygen Flow Rate 6 Fraction of Inspir ed Oxygen Hydration adequate: Yes Nausea and vomiting: No Pain level: 1 Mental status: Baseline
== END 2023-11-16 10:47 | disposition home or self-care (01) ==
PROVIDERS: PCP Nurse Practitioner Family; Visit Provider Podiatrist Foot & Ankle Surgery
PROC: (CPT 28005; 2023-11-16 09:30)
DX: M86.8X7 Other osteomyelitis, ankle and foot (principal); G47.30 Sleep apnea, unspecified; Z86.718 Personal history of other venous thrombosis and embolism; I10 Essential (primary) hypertension; K21.9 Gastro-esophageal reflux disease without esophagitis; E66.01 Morbid (severe) obesity due to excess calories; Z68.41 Body mass index [BMI] 40.0-44.9, adult; G35 Multiple sclerosis; E11.40 Type 2 diabetes mellitus with diabetic neuropathy, unspecified; Z79.01 Long term (current) use of anticoagulants
CPT/HCPCS: 28005; 36416; 82962; 87070; 87176; 87205; J0690; J2704; J3010; J7030; L3260

== ENCOUNTER → 2023-11-28 10:55 | Outpatient (BNVA) | payer OTHER, MEDICAID, SELFPAY | PROVIDERS: PCP Nurse Practitioner Family; Visit Provider Thoracic Surgery (Cardiothoracic Vascular Surgery) | DX: E11.621 Type 2 diabetes mellitus with foot ulcer (principal); L97.509 Non-pressure chronic ulcer of other part of unspecified foot with unspecified severity | CPT/HCPCS: 87070; 87176; 87205 ==

== ENCOUNTER → 2024-01-15 11:42 | Outpatient (BNVA) | payer OTHER, MEDICAID, SELFPAY | PROVIDERS: PCP Nurse Practitioner Family; Visit Provider Nurse Practitioner Family | DX: E11.65 Type 2 diabetes mellitus with hyperglycemia (principal); Z79.4 Long term (current) use of insulin; E55.9 Vitamin D deficiency, unspecified; Z79.899 Other long term (current) drug therapy | CPT/HCPCS: 80053; 80061; 82306; 83036; 84443; 85025 ==

== ENCOUNTER → 2024-01-16 13:55 | Outpatient (BNVA) | payer OTHER, MEDICAID, SELFPAY | PROVIDERS: PCP Nurse Practitioner Family; Visit Provider Nurse Practitioner Family | DX: E11.621 Type 2 diabetes mellitus with foot ulcer (principal); L97.509 Non-pressure chronic ulcer of other part of unspecified foot with unspecified severity; M19.071 Primary osteoarthritis, right ankle and foot | CPT/HCPCS: 73630 ==

== ENCOUNTER 2024-01-28 15:06 | Outpatient (CLI) | payer OTHER, MEDICAID, SELFPAY ==
--- NOTE | 2024-01-28 15:15 | MR_ITS ---
WS: [id number] MRI RIGHT FOOT WITH AND WITHOUT CONTRAST. COMPARISON: Radiographs 01/16/2024 Multiplanar, multisequence imaging is performed with and without contrast. MultiHance 20 mL IV. History: Possible infection RIGHT foot, postop. This is a difficult examination to perform due to patient's immobility. There is a large amount of marrow edema involving the remaining proximal to mid fifth metatarsal. Pos toperative resection of the distal fifth metatarsal. There is a large ulceration along the lateral fo ot at the level of the fifth distal metatarsal. There is enhancement within the remaining fifth metat arsal at the site of the edema. There is additional marrow edema with enhancement involving the distal fourth metatarsal diaphysis an d the entire metatarsal head. Edema with enhancement involving the majority of the cuboid. A small amount of edema with enhancement involving the lateral most calcaneus. There is a additional marrow extending into the subtalar calcaneus and towards the posterior facet with more subtle enhance ment. There is a very small amount of edema in the medial most navicular. Extensive soft tissue edema throughout the foot. No abscess identified. There is extensive cellulitis . Although there is a remaining portion of the distal phalanx this is not very well visualized. IMPRESSION: 1. Quality of this examination is compromised by difficulty positioning the patient and motion. 2. Partial postoperative resection of the fifth distal metatarsal. 3. Osteomyelitis now involving the remaining fifth metatarsal. 4. Osteomyelitis distal fourth metatarsal diaphysis and metatarsal head. 5. Changes of osteomyelitis in the cuboid and portions of the calcaneus. 6. A small amount of edema in the medial most navicular. 7. Diffuse soft tissue cellulitis throughout the foot. No abscess.
[2024-01-28] MEDS: gadobenate dimeglumine 20 mL vial IV (16:16)
== END 2024-01-28 15:07 | disposition home or self-care (01) ==
LOC: RAD 15:07
PROVIDERS: PCP Nurse Practitioner Family; Visit Provider Podiatrist Foot & Ankle Surgery
DX: M86.8X7 Other osteomyelitis, ankle and foot (principal); L03.115 Cellulitis of right lower limb
CPT/HCPCS: 73720; A9577

== ENCOUNTER 2024-02-04 10:38 | Outpatient (CLI) | payer OTHER, MEDICAID, SELFPAY ==
[2024-02-04 11:00] LABS: Basophils # 0.1 10^3/uL (0.0-0.1); Basophils % 0.7 %; Eosinophils # 0.2 10^3/uL (0.0-0.8); Eosinophils % 1.6 %; Hematocrit 43.7 % (37-53); Lymphocytes # 2.4 10^3/uL (0.8-4.8); Lymphocytes % 25.3 %; Mean Corpuscular HGB Conc 30.9 g/dL (30-55); Mean Corpuscular Hemoglobin 26.4 pg (27-33); Mean Corpuscular Volume 85.4 fl (82-101); Monocytes # 0.6 10^3/uL (0.2-0.9); Monocytes % 5.8 %; Neutrophils # 6.35 10^3/uL (1.8-7.7); Neutrophils % 66.3 %; Nucleated Red Blood Cells % 0 %; Platelet Count 243 10^3/cmm (157-399); Red Blood Count 5.12 10^6/uL (3.85-5.65); Red Cell Distribution Width 15.7 % (12.1-15.1); White Blood Count 9.59 10^3/uL (3.29-11.43)
[2024-02-04 11:07] LABS: Erythrocyte Sedimentation Rate 76 mm/hr (0-10)
[2024-02-04 11:19] LABS: Alanine Aminotransferase 6 U/L (0-41); Albumin Level 3.5 g/dL (3.5-5.2); Alkaline Phosphatase 87 U/L (40-130); Anion Gap 14.4 (5-19); Aspartate Amino Transferase 14 U/L (0-40); Blood Urea Nitrogen 19 mg/dL (8-23); C Reactive Protein 58.4 mg/L (0.0-4.9); Calcium 8.8 mg/dL (8.5-10.5); Carbon Dioxide 26 mmol/L (22-29); Chloride 100 mmol/L (98-107); Globulin 4.4 g/dL (1.3-4.6); Glomerular Filtration Rate 305.8 mL/min (90-130); Glucose 111 mg/dL (65-115); Osmolality Calculated 287 mOsm/kg (285-295); Potassium 3.4 mmol/L (3.5-5.1); Sodium 137 mmol/L (136-145); Total Bilirubin 0.3 mg/dL (0.15-1.2); Total Protein 7.9 g/dL (6.6-8.7)
[2024-02-04 11:21] LABS: Estmated Average Glucose 169; Hemoglobin A1C 7.5 % (4.0-6.0)
== END 2024-02-04 10:39 | disposition home or self-care (01) ==
LOC: LAB 10:39
PROVIDERS: PCP Nurse Practitioner Family; Visit Provider Thoracic Surgery (Cardiothoracic Vascular Surgery)
DX: C7A.012 Malignant carcinoid tumor of the ileum (principal); E03.9 Hypothyroidism, unspecified
CPT/HCPCS: 80053; 83036; 84134; 85025; 85651; 86140

== ENCOUNTER → 2024-02-05 13:04 | Outpatient (BNVA) | payer OTHER, MEDICAID, SELFPAY | PROVIDERS: PCP Nurse Practitioner Family; Referring Provider Thoracic Surgery (Cardiothoracic Vascular Surgery); Visit Provider Internal Medicine Cardiovascular Disease | DX: Z13.6 Encounter for screening for cardiovascular disorders (principal) | CPT/HCPCS: 93005 ==

== ENCOUNTER 2024-02-05 13:39 | Outpatient (CLI) | payer OTHER, MEDICAID, SELFPAY ==
--- NOTE | 2024-02-05 13:41 | XRR_ITS ---
PROCEDURE INFORMATION: Exam: XR Chest Exam date and time: 02/05/2024 1:51 PM Age: 58 years old Clinical indication: Screening exam; Other screening; Additional info: Rule out bullous; Hyperbaric oxygen therapy clearance TECHNIQUE: Imaging protocol: Radiologic exam of the chest. Views: 2 views. COMPARISON: CR XR chest 2V* [id number] 09/28/2022 3:37 PM FINDINGS: Lungs: Calcified granuloma left lower lung. Otherwise, unremarkable. Pleural spaces: Unremarkable. No pleural effusion. No pneumothorax. Heart/Mediastinum: Unremarkable. No cardiomegaly. Bones/joints: Unchanged mild scoliosis with mild and moderate multilevel spondylosis. XR/XR chest 2V* [id number] IMPRESSION: No acute disease.
== END 2024-02-05 13:40 | disposition home or self-care (01) ==
LOC: RAD 13:40
PROVIDERS: PCP Nurse Practitioner Family; Visit Provider Thoracic Surgery (Cardiothoracic Vascular Surgery)
DX: Z13.83 Encounter for screening for respiratory disorder NEC (principal)
CPT/HCPCS: 71046

== ENCOUNTER → 2024-02-06 14:50 | Outpatient (BNVA) | payer OTHER, MEDICAID, SELFPAY | PROVIDERS: PCP Nurse Practitioner Family; Visit Provider Thoracic Surgery (Cardiothoracic Vascular Surgery) | DX: E11.621 Type 2 diabetes mellitus with foot ulcer (principal); L97.509 Non-pressure chronic ulcer of other part of unspecified foot with unspecified severity | CPT/HCPCS: 87070; 87077; 87176; 87186; 87205 ==

== ENCOUNTER 2024-03-04 15:25 | Outpatient (CLI) | payer OTHER, MEDICAID, SELFPAY ==
[2024-03-04 19:37] LABS: Basophils # 0.1 10^3/uL (0.0-0.1); Basophils % 0.8 %; Eosinophils # 0.1 10^3/uL (0.0-0.8); Eosinophils % 1.8 %; Hematocrit 43.5 % (37-53); Lymphocytes # 2.4 10^3/uL (0.8-4.8); Lymphocytes % 30.2 %; Mean Corpuscular HGB Conc 31.7 g/dL (30-55); Mean Corpuscular Volume 85.1 fl (82-101); Mean Platelet Volume 9.7 fL (7.4-10.4); Monocytes # 0.5 10^3/uL (0.2-0.9); Monocytes % 5.9 %; Neutrophils # 4.74 10^3/uL (1.8-7.7); Neutrophils % 60.8 %; Nucleated Red Blood Cells % 0 %; Platelet Count 214 10^3/cmm (157-399); Red Blood Count 5.11 10^6/uL (3.85-5.65); Red Cell Distribution Width 16.1 % (12.1-15.1); White Blood Count 7.79 10^3/uL (3.29-11.43)
[2024-03-04 19:45] LABS: Erythrocyte Sedimentation Rate 73 mm/hr (0-10)
[2024-03-04 20:46] LABS: Anion Gap 15.2 (5-19); Blood Urea Nitrogen 21 mg/dL (8-23); C Reactive Protein 56.2 mg/L (0.0-4.9); Carbon Dioxide 27 mmol/L (22-29); Chloride 98 mmol/L (98-107); Glomerular Filtration Rate 305.8 mL/min (90-130); Glucose 225 mg/dL (65-115); Osmolality Calculated 294 mOsm/kg (285-295); Potassium 3.2 mmol/L (3.5-5.1); Sodium 137 mmol/L (136-145)
== END 2024-03-04 15:26 | disposition home or self-care (01) ==
PROVIDERS: PCP Nurse Practitioner Family; Visit Provider Thoracic Surgery (Cardiothoracic Vascular Surgery)
DX: M86.9 Osteomyelitis, unspecified (principal)
CPT/HCPCS: 80048; 85025; 85651; 86140

== ENCOUNTER → 2024-03-31 14:11 | Outpatient (BNVA) | payer OTHER, MEDICAID, SELFPAY | PROVIDERS: PCP Nurse Practitioner Family; Visit Provider Nurse Practitioner Family | DX: E11.621 Type 2 diabetes mellitus with foot ulcer (principal); L97.509 Non-pressure chronic ulcer of other part of unspecified foot with unspecified severity | CPT/HCPCS: 87070; 87075; 87205 ==

== ENCOUNTER → 2024-06-10 09:00 | Outpatient (BNVA) | payer OTHER, MEDICAID, SELFPAY | PROVIDERS: PCP Nurse Practitioner Family; Visit Provider Nurse Practitioner Family | DX: Z12.5 Encounter for screening for malignant neoplasm of prostate (principal); E11.40 Type 2 diabetes mellitus with diabetic neuropathy, unspecified; E55.9 Vitamin D deficiency, unspecified; E11.65 Type 2 diabetes mellitus with hyperglycemia | CPT/HCPCS: 80053; 80061; 82306; 83036; 84443; 85025; G0103 ==

== ENCOUNTER → 2024-07-14 11:24 | Outpatient (BNVA) | payer OTHER, MEDICAID, SELFPAY | PROVIDERS: PCP Nurse Practitioner Family; Visit Provider Nurse Practitioner Family | DX: E53.8 Deficiency of other specified B group vitamins (principal) | CPT/HCPCS: 80048; 82607 ==

== ENCOUNTER → 2024-11-11 08:09 | Outpatient (BNVA) | payer OTHER, MEDICAID, SELFPAY | PROVIDERS: PCP Nurse Practitioner Family; Visit Provider Nurse Practitioner Family | DX: E11.65 Type 2 diabetes mellitus with hyperglycemia (principal); E11.42 Type 2 diabetes mellitus with diabetic polyneuropathy; Z79.4 Long term (current) use of insulin; E55.9 Vitamin D deficiency, unspecified; R19.7 Diarrhea, unspecified | CPT/HCPCS: 80053; 80061; 82306; 82607; 83036; 84443; 85025 ==

== ENCOUNTER → 2024-12-10 13:48 | Outpatient (BNVA) | payer MEDICARE, MEDICAID, SELFPAY | PROVIDERS: PCP Nurse Practitioner Family | DX: E11.52 Type 2 diabetes mellitus with diabetic peripheral angiopathy with gangrene (principal); E11.621 Type 2 diabetes mellitus with foot ulcer; L89.612 Pressure ulcer of right heel, stage 2; E11.622 Type 2 diabetes mellitus with other skin ulcer; L97.811 Non-pressure chronic ulcer of other part of right lower leg limited to breakdown of skin; L97.821 Non-pressure chronic ulcer of other part of left lower leg limited to breakdown of skin; Z09 Encounter for follow-up examination after completed treatment for conditions other than malignant neoplasm | CPT/HCPCS: 11042; 97597 ==

== ENCOUNTER → 2024-12-19 10:00 | Outpatient (BNVA) | payer MEDICARE, MEDICAID, SELFPAY | PROVIDERS: PCP Nurse Practitioner Family | DX: E11.52 Type 2 diabetes mellitus with diabetic peripheral angiopathy with gangrene (principal); E11.621 Type 2 diabetes mellitus with foot ulcer; L89.612 Pressure ulcer of right heel, stage 2; E11.622 Type 2 diabetes mellitus with other skin ulcer; L97.811 Non-pressure chronic ulcer of other part of right lower leg limited to breakdown of skin; L97.821 Non-pressure chronic ulcer of other part of left lower leg limited to breakdown of skin | CPT/HCPCS: 11042; 97597; A6210; A6251 ==

== ENCOUNTER → 2024-12-24 10:46 | Outpatient (BNVA) | payer MEDICARE, MEDICAID, SELFPAY | PROVIDERS: PCP Nurse Practitioner Family; Visit Provider Thoracic Surgery (Cardiothoracic Vascular Surgery) | DX: E11.52 Type 2 diabetes mellitus with diabetic peripheral angiopathy with gangrene (principal); E11.621 Type 2 diabetes mellitus with foot ulcer; L89.622 Pressure ulcer of left heel, stage 2; E11.622 Type 2 diabetes mellitus with other skin ulcer; L97.811 Non-pressure chronic ulcer of other part of right lower leg limited to breakdown of skin; L97.821 Non-pressure chronic ulcer of other part of left lower leg limited to breakdown of skin | CPT/HCPCS: 11042; 97597; A6210; A6251 ==

== ENCOUNTER → 2024-12-31 10:43 | Outpatient (BNVA) | payer MEDICARE, MEDICAID, SELFPAY | PROVIDERS: PCP Nurse Practitioner Family | DX: E11.52 Type 2 diabetes mellitus with diabetic peripheral angiopathy with gangrene (principal); E11.621 Type 2 diabetes mellitus with foot ulcer; L89.622 Pressure ulcer of left heel, stage 2; E11.622 Type 2 diabetes mellitus with other skin ulcer; L97.811 Non-pressure chronic ulcer of other part of right lower leg limited to breakdown of skin; L97.821 Non-pressure chronic ulcer of other part of left lower leg limited to breakdown of skin | CPT/HCPCS: 11042; A6210; A6251 ==

== ENCOUNTER → 2025-01-20 07:58 | Outpatient (BNVA) | payer OTHER, MEDICAID, SELFPAY | PROVIDERS: PCP Nurse Practitioner Family; Visit Provider Nurse Practitioner Family | DX: R35.0 Frequency of micturition (principal) | CPT/HCPCS: 81000; 87086 ==

== ENCOUNTER → 2025-02-24 08:49 | Outpatient (BNVA) | payer OTHER, MEDICAID, SELFPAY | PROVIDERS: PCP Nurse Practitioner Family; Visit Provider Nurse Practitioner Family | DX: E11.65 Type 2 diabetes mellitus with hyperglycemia (principal); Z79.4 Long term (current) use of insulin; E55.9 Vitamin D deficiency, unspecified | CPT/HCPCS: 80053; 80061; 82306; 82607; 83036; 84443; 85025 ==

== ENCOUNTER 2025-03-02 13:44 | Outpatient (CLI) | payer OTHER, MEDICAID, SELFPAY ==
--- NOTE | 2025-03-02 13:45 | USR_ITS ---
PROCEDURE INFORMATION: Exam: US Duplex Bilateral Lower Extremity Arteries Exam date and time: 03/02/2025 2:03 PM Age: 59 years old Clinical indication: Injury or trauma; Other: Non healing ulcers; Wound, open; Bilateral; Lower extremity, lower leg level; Vessel not specified; Additional info: Pain in legs, nonhealing ulcers TECHNIQUE: Imaging protocol: Real-time ultrasound scan of the arteries of the bilateral lower extremities with 2-D mireles scale, color Doppler flow and spectral waveform analysis. Images documented and saved. COMPARISON: CT angio abd aorta runof [id number] 05/12/2019 9:25 AM FINDINGS: Right common femoral artery: No occlusion or significant stenosis. Normal waveform. Right superficial femoral artery: No occlusion or significant stenosis. Normal waveform. Right popliteal artery: No occlusion or significant stenosis. Normal waveform. Right calf/foot arteries: Not performed due to open wounds and bandages in these regions. Left common femoral artery: No occlusion or significant stenosis. Normal waveform. Left superficial femoral artery: No occlusion or significant stenosis. Normal waveform. Left popliteal artery: No occlusion or significant stenosis. Normal waveform. Left calf/foot arteries: Not performed due to open wounds and bandages in these regions. US/CV arterial duplex [facility] [id number] IMPRESSION: No stenosis or occlusion. Of note, infrapopliteal arteries in the calves were not evaluated.
== END 2025-03-02 13:45 | disposition home or self-care (01) ==
LOC: RAD 13:45
PROVIDERS: PCP Nurse Practitioner Family
DX: E11.622 Type 2 diabetes mellitus with other skin ulcer (principal); L98.499 Non-pressure chronic ulcer of skin of other sites with unspecified severity; M79.606 Pain in leg, unspecified; S81.801A Unspecified open wound, right lower leg, initial encounter
CPT/HCPCS: 93925

== ENCOUNTER 2025-03-06 10:47 | Day surgery (SDC) | payer OTHER, MEDICAID, SELFPAY ==
[2025-03-06] VITALS (8 sets, daily range): BP systolic 95–173; BP diastolic 57–79; PULSE 55–75; RESP 12–18; TEMP 36.2–36.8; O2SAT 98–100; BMI 45.0
--- NOTE | 2025-03-06 11:11 | P.ANESASSM_ITS ---
Pre-Anesthetic Assessment Height/Weight: Height 1.68 m Preop Diagnosis: Contracture right foot and ankle Operation Date: 03/06/25 12:30 Proposed Procedures p Left Achilles lengthening and Left posterior tibial tendon lengthening(Left) - Brandon Montgomery DPM s Capsulotomy(Left) - Brandon Montgomery DPM Social No alcohol and No tobacco Exam alert, oriented x 3, clear to auscultation bilaterally and regular rate & rhythm Airway Submandibular: within normal limits Cervical ROM: Other (limited) Mallampati: Class II CV/HEM Hypertension Urinary incontinence GI bowel incontinence Metabolic Diabetes Mellitus and Morbid Obesity [facility] muscular dystrophy Anesthetic Plan ASA status: 4 Anesthesia: MAC Medications/Allergies Home Medications ?Medication ?Instructions ?Recorded ?Confirmed ?Last Taken ?Type mDINR #1 ea 08/17/21 02/24/25 Unkn own Rx abel lift #1 ea 03/01/22 02/24/25 Unkn own Rx hospital bed with ability to #1 ea 10/29/22 02/24/25 U nknown Rx elevated HOB to 30 degrees pen needle, diabetic 31 gauge x #100 ea 01/05/2302/24 Unknown Rx 5/16 (BD Ultra-Fine Short Pen Needle) Afo to the left foot #1 ea 03/27/23 02/24/25 Unkn own Rx C pap-supplies #1 ea 05/04/23 02/24/25 Unkn own Rx ibuprofen 800 mg tablet 800 mg PO Q8H PRN pain #90 t abs 06/21/23 03/05/25 Unknown Rx vitamin B complex 1 tab PO DAILY #90 tabs 11/2 12/2103/05/25 03/04/25 Rx Juzos wraps bilaterally #1 ea 11/14/23 02/24/25 Unkn own Rx blood sugar diagnostic (Blood #100 ea 01/04/24 5 Unknown Rx Glucose Test strips) blood-glucose meter (Blood Glucose #1 ea 01/04/2401/28 Unknown Rx Monitoring kit) lancets 31 gauge (Comfort Touch #100 ea 01/04/2402/24 Unknown Rx Ultra Thin Lancets) hydroxyzine HCl 25 mg tablet 25 mg PO DAILY PRN anxiet y #20 tabs 03/17/24 03/05/25 03/04/25 Rx headgear, mask, hose and cpap #1 ea 07/14/24 02/24/25 Unknown Rx supplies ergocalciferol (vitamin D2) 1,250 50,000 unit PO .ever y 7 days #12 11/19/24 03/05/25 03/01/25 Rx mcg (50,000 unit) capsule caps insulin syringe-needle U-100 1 mL #100 ea 12/09/24 Unknown Rx 31 gauge x 5/16 (BD Insulin Syringe Ultra-Fine) oxybutynin chloride 5 mg 5 mg PO DAILY #30 tabs 01/2003/05/25 03/04/25 Rx tablet,extended release 24 hr insulin human U-100 NPH-regulr 60 unit (0.6 mL) SUBCUT BID #30 mL 02/27/25 03/05/25 03/05/25 Rx 70-30 mix 100 unit/mL subcutaneous susp (Novolin 70/30 U-100 Insulin) hydrocodone 5 mg-acetaminophen 325 1 tab PO BID PRN pa in 7 days #14 03/04/25 03/05/25 03/04/25 Rx mg tablet tabs citalopram 10 mg tablet 10 mg PO DAILY 03/05/25 05/06/2203/04/25 History dapagliflozin propanediol 10 mg 10 mg PO DAILY 5 03/05/25 03/04/25 Histor y tablet (Farxiga) gabapentin 300 mg capsule 300 mg PO DAILY 03/05/2506/2203/04/25 History potassium citrate 10 mEq (1,080 10 meq PO BID 03/05/25 03/05/25 03/04/25 History mg) tablet,extended release triamterene 75 1 tab PO DAILY 03/05/25 0506/2203/04/25 History mg-hydrochlorothiazide 50 mg tablet warfarin 6 mg tablet 6 mg PO DAILY 03/05/2503/0503/04/25 History Allergies Allergy/AdvReac Type Severity Reaction Status Date / Time acetaminophen (From Percocet) Allergy ADR-Irritab Verified 03/05/25 08:32 le oxycodone (From Percocet) Allergy ADR-Irritab Verified 03/05/25 08:32 le [facility] Anesthesia Medical History Mixed incontinence Vitamin D deficiency Erectile dysfunction History of colon polyps PVD (peripheral vascular disease) Cellulitis of both lower extremities Hypertension Diabetes mellitus GERD (gastroesophageal reflux disease) Neuropathy Anticoagulant long-term use Hx of deep venous thrombosis Surgical History History of cataract surgery Hx of colonoscopy Family History Other Diabetes Hypertension Social History Smoking and tobacco/nicotine status: never used tobacco/nicotine Second hand smoke exposure: No Alcohol intake: never Substance/Drug Use: never Caregiver/support person: Yes (spouse) Lives independently: Yes Household members: spouse Marital status: service: No Current occupational status: retired Current gender identity: Male Special jesica needs: No Agree to transfusion: Yes
--- NOTE | 2025-03-06 11:11 | ANES.PREANE2 ---
Pre-Anesthetic Assessment Height/Weight: Height 1.68 m Preop Diagnosis: Contracture right foot and ankle Operation Date: 03/06/25 12:30 Proposed Procedures p Left Achilles lengthening and Left posterior tibial tendon lengthening(Left) - Brandon Montgomery DPM s Capsulotomy(Left) - Brandon Montgomery DPM Social No alcohol and No tobacco Exam alert, oriented x 3, clear to auscultation bilaterally and regular rate & rhythm Airway Submandibular: within normal limits Cervical ROM: Other (limited) Mallampati: Class II CV/HEM Hypertension Urinary incontinence GI bowel incontinence Metabolic Diabetes Mellitus and Morbid Obesity [facility] muscular dystrophy Anesthetic Plan ASA status: 4 Anesthesia: MAC Medications/Allergies Home Medications ?Medication ?Instructions ?Recorded ?Confirmed ?Last Taken ?Type mDINR #1 ea 08/17/21 02/24/25 Unknown Rx abel lift #1 ea 03/01/22 02/24/25 Unknown Rx hospital bed with ability to #1 ea 10/29/22 02/24/25 Unknown Rx elevated HOB to 30 degrees pen needle, diabetic 31 gauge x #100 ea 01/05/23 02/24/25 Unknown Rx 5/16 (BD Ultra-Fine Short Pen Needle) Afo to the left foot #1 ea 03/27/23 02/24/25 Unknown Rx C pap-supplies #1 ea 05/04/23 02/24/25 Unknown Rx ibuprofen 800 mg tablet 800 mg PO Q8H PRN pain #90 tabs 06/21/23 03/05/25 Unknown Rx vitamin B complex 1 tab PO DAILY #90 tabs 09/19/23 03/05/25 03/04/25 Rx Juzos wraps bilaterally #1 ea 11/14/23 02/24/25 Unknown Rx blood sugar diagnostic (Blood #100 ea 01/04/24 02/24/25 Unknown Rx Glucose Test strips) blood-glucose meter (Blood Glucose #1 ea 01/04/24 02/24/25 Unknown Rx Monitoring kit) lancets 31 gauge (Comfort Touch #100 ea 01/04/24 02/24/25 Unknown Rx Ultra Thin Lancets) hydroxyzine HCl 25 mg tablet 25 mg PO DAILY PRN anxiety #20 tabs 03/17/24 03/05/25 03/04/25 Rx headgear, mask, hose and cpap #1 ea 07/14/24 02/24/25 Unknown Rx supplies ergocalciferol (vitamin D2) 1,250 50,000 unit PO .every 7 days #12 11/19/24 03/05/25 03/01/25 Rx mcg (50,000 unit) capsule caps insulin syringe-needle U-100 1 mL #100 ea 12/09/24 02/24/25 Unknown Rx 31 gauge x 5/16 (BD Insulin Syringe Ultra-Fine) oxybutynin chloride 5 mg 5 mg PO DAILY #30 tabs 01/20/25 03/05/25 03/04/25 Rx tablet,extended release 24 hr insulin human U-100 NPH-regulr 60 unit (0.6 mL) SUBCUT BID #30 mL 02/27/25 03/05/25 03/05/25 Rx 70-30 mix 100 unit/mL subcutaneous susp (Novolin 70/30 U-100 Insulin) hydrocodone 5 mg-acetaminophen 325 1 tab PO BID PRN pain 7 days #14 03/04/25 03/05/25 03/04/25 Rx mg tablet tabs citalopram 10 mg tablet 10 mg PO DAILY 03/05/25 03/05/25 03/04/25 History dapagliflozin propanediol 10 mg 10 mg PO DAILY 03/05/25 03/05/25 03/04/25 History tablet (Farxiga) gabapentin 300 mg capsule 300 mg PO DAILY 03/05/25 03/05/25 03/04/25 History potassium citrate 10 mEq (1,080 10 meq PO BID 03/05/25 03/05/25 03/04/25 History mg) tablet,extended release triamterene 75 1 tab PO DAILY 03/05/25 03/05/25 03/04/25 History mg-hydrochlorothiazide 50 mg tablet warfarin 6 mg tablet 6 mg PO DAILY 03/05/25 03/05/25 03/04/25 History Allergies Allergy/AdvReac Type Severity Reaction Status Date / Time acetaminophen (From Percocet) Allergy ADR-Irritab Verified 03/05/25 08:32 le oxycodone (From Percocet) Allergy ADR-Irritab Verified 03/05/25 08:32 le [facility] Anesthesia Medical History Mixed incontinence Vitamin D deficiency Erectile dysfunction History of colon polyps PVD (peripheral vascular disease) Cellulitis of both lower extremities Hypertension Diabetes mellitus GERD (gastroesophageal reflux disease) Neuropathy Anticoagulant long-term use Hx of deep venous thrombosis Surgical History History of cataract surgery Hx of colonoscopy Family History Other Diabetes Hypertension Social History Smoking and tobacco/nicotine status: never used tobacco/nicotine Second hand smoke exposure: No Alcohol intake: never Substance/Drug Use: never Caregiver/support person: Yes (spouse) Lives independently: Yes Household members: spouse Marital status: service: No Current occupational status: retired Current gender identity: Male Special jesica needs: No Agree to transfusion: Yes
--- NOTE | 2025-03-06 11:15 | W.PM.OPSUD ---
Surgery/Procedure H&P Update DATE OF PROCEDURE: March 06, 2025 DATE H&P PERFORMED: 02/12/25 H&P UPDATE INFORMATION: I have reviewed H&P completed within last 30 days, I have examined patient prior to procedure, No changes to prior documentation and Risks and benefits of the procedure reviewed PREOP DIAGNOSIS: Contracture right foot and ankle PLANNED PROCEDURE: Operation Date: 03/06/25 12:30 Proposed Procedures p Left Achilles lengthening and Left posterior tibial tendon lengthening(Left) - Brandon Montgomery DPM s Capsulotomy(Left) - Brandon Montgomery DPM
--- NOTE | 2025-03-06 11:21 | P.OP_ITS ---
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 CPT code 13799. 2) left posterior tibial tendon lengthening with capsulotomy. CPT code 32973 Implants: 4-0 Vicryl, 4 nylon Specimens removed/disposition: None Pathology: None Surgeon: Brandon Montgomery DPM Space Officer: Yann Estimated blood loss: 25 See intraoperative documentation IV fluids: See intraoperative documentation Urine output: No urine output Complications: Posterior ankle/leg skin tear 4 cm in length 11 cm in width down to tendon and fascia. Brief History: Patient examined and evaluated, findings and treatment options were discussed with patient at length. Patient is nonambulatory due to myopathy has limited use of his lower extremities. The foot and ankle contracture that he experiences bilaterally is spastic and nonreducible and is contributing to wound formation at left and right lateral ankle and forefoot due to its difficulty being offloaded he is currently using pillows with limited success, has been in wound care and wounds have stalled out necessitating surgical consideration. Juan David yeh the nonweightbearing status his surgery would be functional and that positioning his foot and ankle in a neutral position to be placed on the foot rest of his power chair and even braced in a neutral position as a means of offloading. I reviewed at length with the patient, the risks, potential complications, benefits, alternatives, expectations, and typical outcomes associated with the surgery. The risks and potential complications were explained in detail, including but not limited to infection, wound dehiscence or soft tissue complications, bleeding and hematoma, chronic edema, neuritis or nerve damage producing numbness or chronic pain, CRPS, failure to relieve pain or worsening pain, thick / painful / unsightly scar, limited motion / stiffness, malposition, delayed union, malunion, or nonunion, fracture, reaction to implants, anesthetic complications, venous thromboembolism, and deformity recurrence. I discussed the notion of no regrets with the patient as it pertains to complications and outcomes. The patient seemed to understand the nature of the proposed care and required convalescence. They asked appropriate questions, answered to their satisfaction. They are aware no guarantees can be made as to a satisfactory outcome and they understand there may be other possible unforeseen complications or outcomes not listed here that will be treated accordingly if they arise. There were no written or implied guarantees given to the patient. They gave informed consent to proceed. Discussed Achilles lengthening, posterior tibial tendon lengthening and capsulotomy in order to achieve neutral position of the ankle and foot bilaterally starting with the left as this is most severe, patient would like to proceed in efforts to achieve neutral position and prevent reoccurring wounds and facilitate healing of current wounds. Procedure: Under mild sedation the patient was brought to the operating room and remained on the gurney in supine position. A timeout was performed. Anesthesia was then administered by the anesthesia service. Local anesthesia was injected by myself consisting of 30 cc of one-to-one mixture 1% lidocaine and 0.5% Marcaine plain in a local field block at the medial foot near insertion of posterior tibial tendon and posterior leg at the level of the Achilles tendon. Well-padded pneumatic tourniquet applied to the left high calf. The left lower extremity was then scrubbed, prepped and draped utilizing normal aseptic technique. Left foot was elevated and tourniquet inflated to 250 mmHg. Attention was directed to the left lower extremity where a equinus and varus contracture was appreciated that was nonreducible to the left foot and ankle. The ankle with maximum plantarflexion and anovaginal to be reduced. Attention was directed to the watershed zone of the Achilles tendon where an incision was made directly over the Achilles tendon midline with dissection carried down to the tendon utilizing a combination of sharp and blunt technique. Care was taken to retract and preserve neurovascular and tendinous structures. All bleeders were ligated and cauterized as necessary. Attention was directed to the left Achilles tendon which was sharply transected due to spastic contracture upon release the ankle joint was able to be semireduced. The incision was irrigated with copious amounts of sterile saline solution and closed with 4-0 nylon. Attention was directed to the left insertion site of the posterior tibial tendon medial to the navicular where incision was made directly over this site through skin with a #15 blade with dissection carried down to the layer of posterior tibial tendon insertion utilizing a combination of sharp and blunt technique. Care was taken to retract and preserve neurovascular and tendinous structures. All bleeders were ligated and cauterized as necessary. Posterior tibial tendon was released sharply and capsulotomy performed at the medial talonavicular joint to reduce the equina varus deformity of the forefoot the forefoot was able to be reduced to neutral in the frontal plane and transverse plane and ankle joint was then able to be dorsiflexed near neutral, upon dorsiflexing the left ankle skin tear was encountered down to myofascial layer measuring 4 cm in length and 11 cm in width at the posterior ankle/leg due to soft tissue contracture after having released tendinous component soft tissue failed when dorsiflexing. This was addressed with Audelia and dressed with sterile 4 x 4 gauze, left medial foot incision was closed with 4-0 Vicryl and 4-0 nylon. Both incisions were dressed with Xeroform, 4 x 4 gauze, ABD pad, Kerlix and Devang wrap followed by application of a cam boot to the left lower extremity able to achieve neutral dorsiflexion in neutral position of the left foot. Tourniquet was deflated and a prompt hyperemic response is noted to the distal digits of the left foot. Patient tolerated the procedure and anesthesia well and was transferred to the PACU with vital signs stable and vascular status intact. Following a period of postoperative monitoring he will be discharged home without home care inst ructions and scheduled follow-up. I discussed with him and his family need for potential split-thickness skin graft or collagen grafting biologic substitute to address the soft tissue deficit at the left posterior leg/ankle this will be a staged procedure.
[2025-03-06 11:24] LABS: Glucose Point of Care 257 mg/dL (70-110)
[2025-03-06] MEDS: sodium chloride 0.9% 1,000 ML 30 ML IV (11:24)
[2025-03-06 11:39] LABS: INR 1.66 (0.8-1.2)
[2025-03-06 11:48] LABS: Anion Gap 13.5 (5-19); Blood Urea Nitrogen 18 mg/dL (8-23); Calcium 9.2 mg/dL (8.5-10.5); Carbon Dioxide 29 mmol/L (22-29); Chloride 99 mmol/L (98-107); Creatinine Clr Calc Pharmacy 325.1464; Glomerular Filtration Rate 304.8 mL/min (90-130); Glucose 262 mg/dL (65-115); Osmolality Calculated 297 mOsm/kg (285-295); Potassium 3.5 mmol/L (3.5-5.1); Sodium 138 mmol/L (136-145)
[2025-03-06] MEDS: ceFAZolin 3,000 MG in sodium chloride 0.9% (plus) 100 ML 200 MG IV (12:00)
[2025-03-06] MEDS: BUPivacaine 0.5% INJ 10 mL 15 ML INJECTION (12:20)
[2025-03-06] MEDS: lidocaine 1% 10 ML INJ 15 ML INJECTION (12:20)
--- NOTE | 2025-03-06 13:00 | P.BOP_ITS ---
Date of Procedure: 01/11/24 Surgeon: Brandon Montgomery DPM Supervisor Force Adjustment(s): Yann Procedure(s) performed: 1) left Achilles lengthening. 2) left posterior tibial tendon lengthening with capsulotomy. Findings of the procedure(s): Iatrogenic skin tear 11 cm in length and circumferential at the posterior left ankle due to soft tissue contracture after tendon release and reduction of the plantarflexion inversion deformity soft tissue encountered a skin tear. 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
[2025-03-06] MEDS: acetaminophen 1,000 MG/100 ML PIGGYBACK 400 MG IV (13:32)
--- NOTE | 2025-03-06 13:39 | ANE.PACU2 ---
Inpatient post-anesthesia follow up: Airway intact: Yes Vital signs: Temperature 97.4 F Pulse Rate 57 Respiratory Rate 18 Blood Pressure 116/65 Pulse Oximetry 98 Oxygen Delivery Me thod Room Air Oxygen Flow Rate Fraction of Inspir ed Oxygen Hydration adequate: Yes Nausea and vomiting: No Pain level: controlled Mental status: Baseline
--- NOTE | 2025-03-06 14:18 | ANE.PACU2 ---
Inpatient post-anesthesia follow up: Airway intact: Yes Vital signs: Temperature 97.4 F Pulse Rate 57 Respiratory Rate 17 Blood Pressure 110/68 Pulse Oximetry 98 Oxygen Delivery Me thod Room Air Oxygen Flow Rate Fraction of Inspir ed Oxygen Hydration adequate: Yes Nausea and vomiting: No Pain level: controlled Mental status: Baseline
== END 2025-03-06 14:04 | disposition home or self-care (01) ==
PROVIDERS: PCP Nurse Practitioner Family; Visit Provider Podiatrist Foot & Ankle Surgery
PROC: (CPT 28261; principal; 2025-03-06 12:20)
PROC: (CPT 27685; 2025-03-06 12:20)
DX: M21.6X2 Other acquired deformities of left foot (principal); M24.572 Contracture, left ankle; M24.575 Contracture, left foot; M21.6X1 Other acquired deformities of right foot; I10 Essential (primary) hypertension; E11.40 Type 2 diabetes mellitus with diabetic neuropathy, unspecified; E11.51 Type 2 diabetes mellitus with diabetic peripheral angiopathy without gangrene; K21.9 Gastro-esophageal reflux disease without esophagitis; E66.01 Morbid (severe) obesity due to excess calories; Z68.42 Body mass index [BMI] 45.0-49.9, adult; G71.00 Muscular dystrophy, unspecified; Z79.899 Other long term (current) drug therapy; Z79.4 Long term (current) use of insulin; Z79.01 Long term (current) use of anticoagulants
CPT/HCPCS: 27685; 28261; 36415; 36416; 80048; 82962; 85610; J0131; J0690; J2704; J3490; J7030; J9999

== ENCOUNTER 2025-03-12 10:16 | Day surgery (SDC) | payer OTHER, MEDICAID, SELFPAY ==
[2025-03-12] VITALS (7 sets, daily range): BP systolic 109–179; BP diastolic 64–90; PULSE 61–69; RESP 12–18; TEMP 36.4–36.9; O2SAT 96–100; BMI 44.9
[2025-03-12] MEDS: sodium chloride 0.9% 1,000 ML 30 ML IV (10:51)
[2025-03-12 10:52] LABS: Glucose Point of Care 197 mg/dL (70-110)
[2025-03-12 11:12] LABS: INR 1.92 (0.8-1.2)
[2025-03-12 11:17] LABS: Blood Urea Nitrogen 15 mg/dL (8-23); Calcium 8.8 mg/dL (8.5-10.5); Carbon Dioxide 24 mmol/L (22-29); Chloride 100 mmol/L (98-107); Creatinine Clr Calc Pharmacy 324.4837; Glomerular Filtration Rate 304.8 mL/min (90-130); Glucose 195 mg/dL (65-115); Osmolality Calculated 292 mOsm/kg (285-295); Sodium 138 mmol/L (136-145)
[2025-03-12 11:19] LABS: Anion Gap 17.6 (5-19); Potassium 3.6 mmol/L (3.5-5.1)
--- NOTE | 2025-03-12 12:08 | W.PM.OPSUD ---
Surgery/Procedure H&P Update DATE OF PROCEDURE: March 12, 2025 DATE H&P PERFORMED: 03/09/25 H&P UPDATE INFORMATION: I have reviewed H&P completed within last 30 days, I have examined patient prior to procedure, No changes to prior documentation and Risks and benefits of the procedure reviewed PREOP DIAGNOSIS: Left leg wound PLANNED PROCEDURE: Operation Date: 03/12/25 12:00 Proposed Procedures p Wound Bed Preparation left ankle(Left) - Brandon Montgomery DPM s Application of biologic graft left ankle.(Left) - Brandon Montgomery DPM
--- NOTE | 2025-03-12 12:11 | ANES.PREANE2 ---
Pre-Anesthetic Assessment Height/Weight: Height 1.68 m Weight 126.099 kg Temp Pulse Resp BP Pulse Ox O2 Del Method 98.1 F 69 18 179/85 100 Room Air 03/12/25 10:41 03/12/25 10:41 03/12/25 10:41 03/12/25 10:41 03/12/25 10:41 03/12/25 10:41 Preop Diagnosis: Left leg wound Operation Date: 03/12/25 12:00 Proposed Procedures p Wound Bed Preparation left ankle(Left) - Brandon Montgomery DPM s Application of biologic graft left ankle.(Left) - Brandon Montgomery DPM Familial anesthetic complications: None Was Beta Real taken within 24 hours: N/A Was Clonidine taken within 24 hours: N/A Last intake: Intake Last Liquid Date 03/11/25 Last Liquid Time 17:00 Last Solid Date 03/11/25 Last Solid Time 17:00 Social No alcohol and No tobacco Exam alert, oriented x 3, clear to auscultation bilaterally and regular rate & rhythm Airway Submandibular: within normal limits Cervical ROM: within normal limits Mallampati: Class III Comments: Comments: Few remaining teeth. Nothing loose History/ROS No significant history except as noted and No significant complaints Pulmonary Sleep Apnea (CPAP) CV/HEM Coronary Artery Disease, Deep Vein Thrombosis, Hypertension and Myocardial Infarction (30 years ) None reported Hepatic None reported GI None reported Metabolic Diabetes Mellitus and Morbid Obesity [facility] Osteoarthritis/DJD Muscular dystrophy Neuropsych Neuropathy Anesthetic Plan ASA status: 4 Anesthesia: Anesthesia Evaluation, General and MAC Risk of > 500 ml blood loss (7ml/kg in children): No Medications/Allergies Home Medications ?Medication ?Instructions ?Recorded ?Confirmed ?Last Taken ?Type mDINR #1 ea 08/17/21 03/09/25 Unknown Rx abel lift #1 ea 03/01/22 03/09/25 Unknown Rx hospital bed with ability to #1 ea 10/29/22 03/09/25 Unknown Rx elevated HOB to 30 degrees pen needle, diabetic 31 gauge x #100 ea 01/05/23 03/09/25 Unknown Rx 5/16 (BD Ultra-Fine Short Pen Needle) Afo to the left foot #1 ea 03/27/23 03/09/25 Unknown Rx C pap-supplies #1 ea 05/04/23 03/09/25 Unknown Rx ibuprofen 800 mg tablet 800 mg PO Q8H PRN pain #90 tabs 06/21/23 03/12/25 03/09/25 Rx vitamin B complex 1 tab PO DAILY #90 tabs 09/19/23 03/11/25 03/11/25 Rx Juzos wraps bilaterally #1 ea 11/14/23 03/09/25 Unknown Rx blood sugar diagnostic (Blood #100 ea 01/04/24 03/09/25 Unknown Rx Glucose Test strips) blood-glucose meter (Blood Glucose #1 ea 01/04/24 03/09/25 Unknown Rx Monitoring kit) lancets 31 gauge (Comfort Touch #100 ea 01/04/24 03/09/25 Unknown Rx Ultra Thin Lancets) hydroxyzine HCl 25 mg tablet 25 mg PO DAILY PRN anxiety #20 tabs 03/17/24 03/11/25 03/11/25 Rx headgear, mask, hose and cpap #1 ea 07/14/24 03/09/25 Unknown Rx supplies ergocalciferol (vitamin D2) 1,250 50,000 unit PO .every 7 days #12 11/19/24 03/11/25 03/06/25 Rx mcg (50,000 unit) capsule caps insulin syringe-needle U-100 1 mL #100 ea 12/09/24 03/09/25 Unknown Rx 31 gauge x 5/16 (BD Insulin Syringe Ultra-Fine) oxybutynin chloride 5 mg 5 mg PO DAILY #30 tabs 01/20/25 03/11/25 03/11/25 Rx tablet,extended release 24 hr insulin human U-100 NPH-regulr 60 unit (0.6 mL) SUBCUT BID #30 mL 02/27/25 03/11/25 03/11/25 Rx 70-30 mix 100 unit/mL subcutaneous susp (Novolin 70/30 U-100 Insulin) hydrocodone 5 mg-acetaminophen 325 1 tab PO BID PRN pain 7 days #14 03/04/25 03/11/25 03/11/25 Rx mg tablet tabs citalopram 10 mg tablet 10 mg PO DAILY 03/05/25 03/11/25 03/11/25 History dapagliflozin propanediol 10 mg 10 mg PO DAILY 03/05/25 03/11/25 03/11/25 History tablet (Farxiga) gabapentin 300 mg capsule 300 mg PO DAILY 03/05/25 03/11/25 03/11/25 History potassium citrate 10 mEq (1,080 10 meq PO BID 03/05/25 03/11/25 03/11/25 History mg) tablet,extended release triamterene 75 1 tab PO DAILY 03/05/25 03/11/25 03/11/25 History mg-hydrochlorothiazide 50 mg tablet warfarin 6 mg tablet 6 mg PO DAILY 03/05/25 03/11/25 03/10/25 History Allergies Allergy/AdvReac Type Severity Reaction Status Date / Time oxycodone (From Percocet) Allergy ADR-Irritab Verified 03/11/25 11:45 le Current Medications Generic Name Dose Route Start Last Admin Trade Name Freq PRN Reason Stop Dose Admin Sodium Chloride 1,000 mls @ 30 mls/hr 03/12/25 10:30 03/12/25 10:51 Sodium Chloride 0.9% IV 03/13/25 10:29 30 mls/hr .Q24H LOUIS Administration PFSH Anesthesia Medical History Mixed incontinence Vitamin D deficiency Erectile dysfunction History of colon polyps PVD (peripheral vascular disease) Cellulitis of both lower extremities Hypertension Diabetes mellitus GERD (gastroesophageal reflux disease) Neuropathy Anticoagulant long-term use Hx of deep venous thrombosis Surgical History History of cataract surgery Hx of colonoscopy Family History Other Diabetes Hypertension Social History Smoking and tobacco/nicotine status: never used tobacco/nicotine Second hand smoke exposure: No Alcohol intake: never Substance/Drug Use: never Caregiver/support person: Yes (spouse) Lives independently: Yes Household members: spouse Marital status: service: No Current occupational status: retired Current gender identity: Male Special jesica needs: No Agree to transfusion: Yes Data Anesthesia 03/12/25 10:45 BMP 03/12/25 10:45 Sodium 138 Potassium 3.6 Chloride 100 Carbon Dioxide 24 BUN 15 Creatinine 0.3 L Glucose 195 H Calcium 8.8 Coags 03/12/25 10:45 PT 23.10 H INR 1.92 H
[2025-03-12] MEDS: ceFAZolin 3,000 MG in sodium chloride 0.9% (plus) 100 ML 200 MG IV (12:21)
--- NOTE | 2025-03-12 12:21 | P.OP_ITS ---
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 Procedure done: 1) wound bed preparation left ankle. CPT code 14521 2) application of biologic graft left ankle. CPT code 33491 Implants: Skin karen, Cytal collagen graft, see intraoperative documentation on Lot number. Specimens removed/disposition: None Pathology: None Surgeon: Brandon Montgomery DPM [employer] Workers: Yann Estimated blood loss: Less than 10 mL See intraoperative documentation IV fluids: None Urine output: None Complications: None Brief History: Patient has a open wound right posterior ankle, iatrogenic wound during surgical offloading of left foot and ankle, was able to achieve neutral position of the ankle and foot after posterior tibial tendon and Achilles tendon release along with capsulotomy, unfortunately skin contracture failed resulting in skin tear measures 4 cm in length 11 cm in width exposed to tendon and fascia. Discussed treatment options. Recommending irrigation and debridement with collagen graft application can be done outpatient. I reviewed at length with the patient, the risks, potential complications, benefits, alternatives, expectations, and typical outcomes associated with the surgery. The risks and potential complications were explained in detail, including but not limited to infection, wound dehiscence or soft tissue complications, bleeding and hematoma, chronic edema, neuritis or nerve damage producing numbness or chronic pain, CRPS, failure to relieve pain or worsening pain, thick / painful / unsightly scar, limited motion / stiffness, malposition, delayed union, malunion, or nonunion, fracture, reaction to implants, anesthetic complications, venous thromboembolism, and deformity recurrence. I discussed the notion of no regrets with the patient as it pertains to complications and outcomes. The patient seemed to understand the nature of the proposed care and required convalescence. They asked appropriate questions, answered to their satisfaction. They are aware no guarantees can be made as to a satisfactory outcome and they understand there may be other possible unforeseen complications or outcomes not listed here that will be treated accordingly if they arise. There were no written or implied guarantees given to the patient. They gave informed consent to proceed. Procedure: Under mild sedation the patient was brought to the operating room and remained on the gurney in supine position. A timeout was performed. Anesthesia was administered by the anesthesia service. Local anesthesia injected by myself consisting of one-to-one mixture 1% lidocaine and 0.5% Marcaine plain total of 30 cc in a V-block to the left posterior leg. Well-padded pneumatic tourniquet applied left high calf. Left lower extremity was scrubbed, prepped and draped utilizing normal aseptic technique. Attention was directed to the left posterior leg wound exposed to tendon and muscle and fascia measuring 4 cm x 11 cm x 0.5 cm this was debrided excisionally in nature with pickups and a #15 blade with all devitalized tissue being excised and passed from operative field. The wound was irrigated with copious amounts o f sterile saline solution. Postdebridement wound measurements 4.4 cm x 11.5 cm x 0.6 cm after wound bed preparation a skin substitute collagen graft Cytal was secured in proper orientation and the borders fixated with skin karen and dressed with Adaptic, 4 x 4 gauze, ABD pads and Devang wrap. Patient tolerated the procedure and anesthesia well and was transferred to the PACU with vital signs stable and vascular status intact. Following a period of postoperative monitoring he will be discharged home without home care instructions and scheduled follow-up.
--- NOTE | 2025-03-12 12:21 | W.PM.BPON ---
Date of Procedure: 01/11/24 Surgeon: Brandon Montgomery DPM [employer] Systems Architect(s): Yann Procedure(s) performed: Wound bed preparation and application of biologic graft left lower extremity. Findings of the procedure(s): Wound to myofascial layer left posterior ankle/leg Estimated blood loss: 1 mL Specimen(s) removed: None Post-operative diagnosis: Same
--- NOTE | 2025-03-12 13:50 | ANE.PACU2 ---
Inpatient post-anesthesia follow up: Airway intact: Yes Vital signs: Temperature 98.5 F Pulse Rate 66 Respiratory Rate 18 Blood Pressure 153/90 Pulse Oximetry 98 Oxygen Delivery Me thod Room Air Oxygen Flow Rate Fraction of Inspir ed Oxygen Hydration adequate: Yes Nausea and vomiting: No Pain level: 1 Mental status: Baseline
== END 2025-03-12 13:50 | disposition home or self-care (01) ==
PROVIDERS: Anesthesiology; PCP Nurse Practitioner Family; Visit Provider Podiatrist Foot & Ankle Surgery
PROC: (CPT 15002; principal; 2025-03-12 12:00)
PROC: (CPT 15002; 2025-03-12 12:00)
DX: L97.323 Non-pressure chronic ulcer of left ankle with necrosis of muscle (principal); E11.65 Type 2 diabetes mellitus with hyperglycemia; K21.9 Gastro-esophageal reflux disease without esophagitis; E11.51 Type 2 diabetes mellitus with diabetic peripheral angiopathy without gangrene; Z79.4 Long term (current) use of insulin; Z99.3 Dependence on wheelchair; G72.9 Myopathy, unspecified; Z88.5 Allergy status to narcotic agent; Z79.899 Other long term (current) drug therapy; Z79.01 Long term (current) use of anticoagulants; Z86.718 Personal history of other venous thrombosis and embolism; I10 Essential (primary) hypertension
CPT/HCPCS: 15002; 15271; 36415; 36416; 80048; 82962; 85610; J0690; J2250; J2704; J3010; J7030; J9999; Q4166

== ENCOUNTER 2025-06-17 13:57 | Outpatient (CLI) | payer OTHER, MEDICAID, SELFPAY | END 2025-06-17 13:58 | disposition home or self-care (01) | LOC: SLEEP 13:58 | PROVIDERS: PCP Nurse Practitioner Family; Referring Provider Nurse Practitioner Family; Visit Provider Internal Medicine Pulmonary Disease | DX: G47.33 Obstructive sleep apnea (adult) (pediatric) (principal) | CPT/HCPCS: G0399 ==

== ENCOUNTER 2025-07-06 09:00 | Outpatient (CLI) | payer OTHER, MEDICAID, SELFPAY ==
[2025-07-06 11:16] LABS: Hematocrit 49.8 % (37-53); Hemoglobin 15.90 g/dL (11.27-16.99); Mean Corpuscular HGB Conc 31.9 g/dL (30-55); Mean Corpuscular Hemoglobin 27.6 pg (27-33); Mean Corpuscular Volume 86.5 fl (82-101); Nucleated Red Blood Cells % 0 %; Platelet Count 225 10^3/cmm (157-399); Red Blood Count 5.76 10^6/uL (3.85-5.65); White Blood Count 8.86 10^3/uL (3.29-11.43)
[2025-07-06 11:32] LABS: Estmated Average Glucose 189; Hemoglobin A1C 8.2 % (4.0-6.0)
[2025-07-06 11:44] LABS: Thyroid Stimulating Hormone 2.31 uIU/mL (0.27-4.20)
== END 2025-07-06 09:01 | disposition home or self-care (01) ==
LOC: LAB 09:04
PROVIDERS: PCP Nurse Practitioner Family; Visit Provider Nurse Practitioner Family
DX: E55.9 Vitamin D deficiency, unspecified (principal); E11.622 Type 2 diabetes mellitus with other skin ulcer; L98.499 Non-pressure chronic ulcer of skin of other sites with unspecified severity; F32.A Depression, unspecified; Z01.818 Encounter for other preprocedural examination
CPT/HCPCS: 36415; 83036; 84443; 85025

== ENCOUNTER → 2025-07-07 08:15 | Outpatient (BNVA) | payer OTHER, MEDICAID, SELFPAY | PROVIDERS: PCP Nurse Practitioner Family; Visit Provider Family Medicine | DX: Z01.818 Encounter for other preprocedural examination (principal); E11.622 Type 2 diabetes mellitus with other skin ulcer; L98.499 Non-pressure chronic ulcer of skin of other sites with unspecified severity; F32.A Depression, unspecified; E55.9 Vitamin D deficiency, unspecified | CPT/HCPCS: 80053; 93005 ==

== ENCOUNTER 2025-07-23 18:07 | Inpatient (IN) | payer MEDICARE, MEDICAID, SELFPAY ==
[2025-07-23] VITALS (27 sets, daily range): BP systolic 83–151; BP diastolic 50–84; PULSE 66–106; RESP 14–88; TEMP 36.1–36.4; O2SAT 93–99; BMI 46.0
--- NOTE | 2025-07-23 13:22 | ANES.PREANE2 ---
Pre-Anesthetic Assessment Height/Weight: Height 1.68 m O2 Del Method Room Air 07/23/25 12:40 Operation Date: 07/23/25 14:20 Proposed Procedures p RIGHT Below the Knee Amputation(Right) - Juanjo Brown DO s RIGHT Possible Through the Knee and Possible Amputation Above Knee(Right) - Juanjo Brown DO Familial anesthetic complications: none Was Beta Real taken within 24 hours: N/A Was Clonidine taken within 24 hours: N/A Last intake: Intake Last Liquid Date 07/23/25 Last Liquid Time 07:00 Last Solid Date 07/22/25 Last Solid Time 18:00 Social No alcohol and No tobacco Exam alert, oriented x 3, clear to auscultation bilaterally and regular rate & rhythm Pulmonary Sleep Apnea CV/HEM Hypertension and Peripheral Vascular Disease Metabolic Diabetes Mellitus and Morbid Obesity Anesthetic Plan ASA status: 4 Anesthesia: General and Regional (specify below) Risk of > 500 ml blood loss (7ml/kg in children): No Medications/Allergies Home Medications ?Medication ?Instructions ?Recorded ?Confirmed ?Last Taken ?Type mDINR #1 ea 08/17/21 06/24/25 Unknown Rx abel lift #1 ea 03/01/22 06/24/25 Unknown Rx hospital bed with ability to #1 ea 10/29/22 06/24/25 Unknown Rx elevated HOB to 30 degrees Afo to the left foot #1 ea 03/27/23 06/24/25 Unknown Rx C pap-supplies #1 ea 05/04/23 06/24/25 Unknown Rx ibuprofen 800 mg tablet 800 mg PO Q8H PRN pain #90 tabs 06/21/23 07/22/25 03/09/25 Rx vitamin B complex 1 tab PO DAILY #90 tabs 09/19/23 07/22/25 07/19/25 Rx Juzos wraps bilaterally #1 ea 11/14/23 06/24/25 Unknown Rx blood sugar diagnostic (Blood #100 ea 01/04/24 06/24/25 Unknown Rx Glucose Test strips) blood-glucose meter (Blood Glucose #1 ea 01/04/24 06/24/25 Unknown Rx Monitoring kit) lancets 31 gauge (Comfort Touch #100 ea 01/04/24 06/24/25 Unknown Rx Ultra Thin Lancets) headgear, mask, hose and cpap #1 ea 07/14/24 06/24/25 Unknown Rx supplies ergocalciferol (vitamin D2) 1,250 50,000 unit PO .every 7 days #12 11/19/24 07/22/25 07/19/25 Rx mcg (50,000 unit) capsule caps insulin syringe-needle U-100 1 mL #100 ea 12/09/24 06/24/25 Unknown Rx 31 gauge x 5/16 (BD Insulin Syringe Ultra-Fine) dapagliflozin propanediol 10 mg 10 mg PO DAILY 03/05/25 07/22/25 07/19/25 History tablet (Farxiga) auto-titrating cpap 6-16cm #1 ea 06/26/25 Unknown Rx doxycycline hyclate 100 mg capsule 100 mg PO BID #28 caps 07/08/25 07/22/25 07/22/25 Rx enoxaparin 120 mg/0.8 mL 120 mg (0.8 mL) SUBCUT Q12H #8 mL 07/16/25 07/22/25 07/22/25 Rx subcutaneous syringe (Lovenox) chucks #100 ea 07/17/25 Unknown Rx wipes #300 ea 07/17/25 Unknown Rx citalopram 10 mg tablet 10 mg PO DAILY #90 tabs 07/22/25 07/22/25 07/19/25 Rx gabapentin 300 mg capsule 300 mg PO DAILY 07/22/25 07/22/25 07/21/25 History insulin NPH-regular 70-30 U-100 60 unit SUBCUT BID 07/22/25 07/23/25 07/23/25 07:00 History insulin 100 unit/mL subcutaneous pen (Novolin 70-30 FlexPen U-100 Insulin) pen needle, diabetic 32 gauge x #1,200 ea 07/22/25 Unknown Rx 5/32 (Liz Pen Needle) potassium citrate 10 mEq (1,080 10 meq PO BID #180 tabs 07/22/25 07/22/25 07/21/25 Rx mg) tablet,extended release triamterene 75 1 tab PO DAILY 07/22/25 07/22/25 07/22/25 History mg-hydrochlorothiazide 50 mg tablet warfarin 6 mg tablet 6 mg PO DAILY 07/22/25 07/22/25 07/19/25 History hydrocodone 7.5 mg-acetaminophen 1 tab PO Q6H PRN pain #20 tabs 07/23/25 Unknown Rx 325 mg tablet Allergies Allergy/AdvReac Type Severity Reaction Status Date / Time oxycodone (From Percocet) Allergy ADR-Irritab Verified 07/07/25 08:58 [facility] Anesthesia Medical History Mixed incontinence Vitamin D deficiency Erectile dysfunction History of colon polyps PVD (peripheral vascular disease) Cellulitis of both lower extremities Hypertension Diabetes mellitus GERD (gastroesophageal reflux disease) Neuropathy Anticoagulant long-term use Hx of deep venous thrombosis Surgical History History of cataract surgery Hx of colonoscopy Family History Other Diabetes Hypertension Social History Smoking and tobacco/nicotine status: never used tobacco/nicotine Second hand smoke exposure: No Alcohol intake: never Substance/Drug Use: never Caregiver/support person: Yes (spouse) Lives independently: Yes Household members: spouse Marital status: service: No Current occupational status: retired Current gender identity: Male Special jesica needs: No Agree to transfusion: Yes
--- NOTE | 2025-07-23 13:34 | W.PM.OPSFHP ---
Same Day Surgery H&P Indication for Procedure/HPI DATE OF PROCEDURE: July 23, 2025 CHIEF COMPLAINT/INDICATIONFOR SURGICAL PROCEDURE: Chronic right lower extremity deformity, peripheral vascular disease, chronic nonhealing wound, chronic osteomyelitis PREOP DIAGNOSIS: Chronic right lower extremity deformity, peripheral vascular disease, chron PLANNED PROCEDURE: Operation Date: 07/23/25 14:20 Proposed Procedures p RIGHT Below the Knee Amputation(Right) - Juanjo Brown DO s RIGHT Possible Through the Knee and Possible Amputation Above Knee(Right) - Juanjo Brown DO Medications/Allergies* Home Medications ?Medication ?Instructions ?Recorded ?Confirmed ?Type dapagliflozin propanediol 10 mg 10 mg PO DAILY 03/05/25 07/22/25 History tablet (Farxiga) gabapentin 300 mg capsule 300 mg PO DAILY 07/22/25 07/22/25 History insulin NPH-regular 70-30 U-100 60 unit SUBCUT BID 07/22/25 07/23/25 History insulin 100 unit/mL subcutaneous pen (Novolin 70-30 FlexPen U-100 Insulin) triamterene 75 1 tab PO DAILY 07/22/25 07/22/25 History mg-hydrochlorothiazide 50 mg tablet warfarin 6 mg tablet 6 mg PO DAILY 07/22/25 07/22/25 History Allergies/Adverse Reactions Allergy/AdvReac Type Severity Reaction Status Date / Time oxycodone (From Percocet) Allergy ADR-Irritab Verified 07/07/25 08:58 le Pertinent History/Comorbid Conditions* Medical History (Updated 06/21/25 @ 21:23 by Juanjo Brown DO) Mixed incontinence Vitamin D deficiency Erectile dysfunction History of colon polyps PVD (peripheral vascular disease) Cellulitis of both lower extremities Hypertension Diabetes mellitus GERD (gastroesophageal reflux disease) Neuropathy Anticoagulant long-term use Hx of deep venous thrombosis Surgical History (Updated 10/28/24 @ 08:16 by VASU Harris) History of cataract surgery Hx of colonoscopy Family History (Updated 07/21/22 @ 11:11 by Sarah David LPN) Diabetes Hypertension Social History Smoking and tobacco/nicotine status: never used tobacco/nicotine Second hand smoke exposure: No Alcohol intake: never Substance/Drug Use: never Caregiver/support person: Yes (spouse) Lives independently: Yes Household members: spouse Marital status: service: No Current occupational status: retired Current gender identity: Male Special jesica needs: No Agree to transfusion: Yes Pertinent Exam Findings alert, oriented x 3, operative site marked and procedure specific exam findings Please refer to detailed orthopedic examination on 06/17/2025 listed below: Examination of the right lower extremity wounds and chronic venous stasis ulcerations and skin changes appreciated throughout the right lower extremity with subtle erythema appreciated throughout his skin from the pretibial region down to the foot. He has a severe case of equinus position that supple but resting position is in the severe requirements position he has multiple ulcerations and chronic wounds throughout the right lower extremity. Unable to palpate his pulse secondary to his edema and poor vascularity. Recommendations Risks and benefits of procedure reviewed and Patient/family agree to proceed Surgery/Procedure today Other Plans: Plan to proceed to the OR today for right lower extremity below the knee amputation, possible through the knee amputation, possible [id number] amputation. Patient at this point in time has had chronic nonhealing wounds of the right lower extremity with a severe varus and equinus deformity at the ankle chronic nonhealing wounds with chronic osteomyelitis he has failed a conservative approach and limb salvage with podiatry at this point in time he is ready to proceed with surgical intervention he is within the preoperative clearance process and has been medically optimized prior to surgical intervention at this point in time we talked about his treatment options in detail for his continued nonoperative resolve intervention. Risk of surgery clued but not limited to make a better make it worse, phantom pain, wound complications, infection, further surgeries. Understanding risks of surgery patient like to proceed with surgical intervention all questions answered at this time. Will proceed with surgical intervention today. Plan for admission postoperatively for observation. All questions answered. Coding Level of Care Code Acute Code for [facility] Kim
[2025-07-23] MEDS: acetaminophen 1,000 MG/100 ML PIGGYBACK 400 MG IV (13:39)
[2025-07-23] MEDS: ceFAZolin 2,000 MG in sodium chloride 0.9% (plus) 50 ML 100 MG IV (13:46)
[2025-07-23] MEDS: tranexamic acid 1,000 mg/10mL SDV 1000 MG IV (14:40)
--- NOTE | 2025-07-23 16:09 | SUR.PREOP ---
1607 uncrossmatched blood started by anesthesia. Unit # [id number] o+ expiration 08-17-25. Verified with SANDI MOSQUEDA.
--- NOTE | 2025-07-23 16:18 | SUR.PREOP ---
1615 blood transfusion complete. HD
--- NOTE | 2025-07-23 16:35 | PM.PACU ---
PACU note Narrative: Patient is a 59-year-old male that just underwent a right through the knee amputation. Pt transferred to PACU in stable condition. Dressing is dry. pt is awake and alert. Pain is controlled. Exam: awake Disposition: admitted
--- NOTE | 2025-07-23 16:39 | P.BOP_ITS ---
Date of Procedure: 07/23/25 Surgeon: Juanjo Brown DO Last Repairer Helper(s): Alessandro Brown PA-C Procedure(s) performed: Right through the knee amputation Findings of the procedure(s): Patient underwent the procedure as planned. Patient did have intraoperative and increased blood loss of 600 mL and required 1 unit of PRBC as he was having some lower blood pressures. Patient responded well to the unit PRBC as well as fluids and albumin and maintaining stable pressures when taken into recovery he is recovering in stable condition in the PACU and plan to be admitted postoperatively for observation to the [facility] floor. Estimated blood loss: 600 mL Specimen(s) removed: Right lower leg and ankle amputated and placed in pathology for specimen Post-operative diagnosis: Right lower leg chronic wounds chronic osteomyelitis and acquired cavovarus equinus deformity
--- NOTE | 2025-07-23 17:02 | P.OP_ITS ---
Operative Report Date of procedure: July 23, 2025 Pre-op diagnosis: Right lower extremity chronic wounds, nonhealing diabetic peripheral vascular disease and chronic osteomyelitis Post-op diagnosis: Same Post-op findings: See operative report for narrative Procedure done: Right through the knee amputation Implants: None Specimens removed/disposition: Right lower leg ankle and foot amputated and sent for specimen/pathology Surgeon: Juanjo Brown DO Biomedical Service Engineer: Alessandro Brown PA-C: GRIS was necessary for assistance in this case with leg positioning retraction and protection of neurovascular structures as well as assistance amputation and assistance in wound closure and dressing application. Anesthesia: General Estimated blood loss (mL): 600 67min IV fluids: 2300mL normal saline 250 mL albumin Urine output: See anesthesia record Complications: Patient had 600 mL of blood loss intraoperatively and did have some softer pressures as a result we did transfuse 1 unit PRBC during the case which he responded well to. Findings: See operative report narrative Condition: stable Disposition: observation Brief History: Patient at this point in time nonambulatory chronic bilateral lower extremity wounds that are nonhealing with chronic osteomyelitis of the right lower extremity as well as significant equinus cavovarus deformity. This point in time we worked him up in the outpatient setting he is failed to respond to conservative treatment and limb salvage procedures at this point in time would like amputation we talked about his options he does have significant ulcerations and changes all the way up to the proximal lower leg which unfortunately would likely render him not a good below the knee amputation as there is no really any good flap able to be performed with this. As a result we talked about a right below-knee amputation versus possible through the knee amputation versus possible [id number] amputation. Understanding his risk of surgery patient l jacquelin proceed with surgical intervention questions at this time. Consent reviewed and signed with patient the preoperative holding area. Procedure: Patient seen eval in the preoperative holding area. Consent was reviewed and signed with patient. Correct extremity was then subsequently marked. Patient was then seen evaluated by anesthesia once cleared for surgery patient was taken back to the operative suite transported on the OR table all bony prominences well-padded patient appropriate secured to bed. A nonsterile tourniquet was applied to the right upper thigh. Patient underwent a seizure per the AC department appropriate anesthetized the right lower extremity was then prepped and draped in standard orthopedic fashion. Final timeout performed. Patient received appropriate preoperative antibiotics. At this point in time right lower extremity was then elevated and tourniquet was insufflated to 250 mmHg. I subsequently evaluated the ulcerations and there was no ability for a good flap and would have to cut into the patellar tendon just to perform a satisfactory BKA due to the loss of soft tissue envelope as a result through the knee amputation was selected as this would have the availability of good flap tissue based off of the markings on his skin and be out of the zone of his infection. As result I did a standard through the knee amputation with a posterior flap. Sharp scalpel incision was made through skin and subcutaneous tissue switched to Littler dissection scissors and then utilize electrocautery. Patient did have bleeding throughout the procedure and multiple times alternated of tourniquet on and off as there was prior to the procedure the tourniquet was a venous tourniquet. I subsequently utilized bipolar electrocautery elevated the patellar tendon off of the tibia. At this point in time I then subsequently continued to dissect periosteally around the tibia proximally maintaining hemostasis with hemostats throughout. At this point in time I then subsequently identified the fibular head identified the common peroneal nerve dissected this out and then subsequently subperiosteally elevated around the proximal tibia and fibula. I then identified the cruciate ligaments these were then subsequently electrocautery off of the base of the tibia to leave for tendinous prominence to allow for repair. At this point in time I then released the collaterals and then subsequently identified the hamstring tendons and dissected these off. Once I subperiosteally elevated along the posterior aspect of the fibula and tibia I then subsequently utilized an amputation knife along the back of the bone and and subsequently removed this without full thick flap and transected this and removed the lower limb and sent this for pathology and specimen. The tissue was reactive from the standpoint of muscle was red and reactive with electrocautery there is no signs of infection or any significant edema noted at all throughout this as a result where in a clean zone with no zone of infection in this area. At this point, I proceeded with the procedure. I subsequently let down the tourniquet and identified the neurovascular structures at this spot of the common peroneal as well as the saphenous and popliteal. At this point in time these were all tied with silk ties as well as then a stick tie and then electrocautery at the edge. I then subsequently debulked the gastroc musculature to allow for closure of the flap. At this point in time we did toggle the tourniquet once again up and down to help with controlling hemostasis this patient arteries did had significant calcifications and inability to collapse due to the calcifications. At this point in time I then identified the saphenous, peroneal and tibial nerves which were all then dissected out placed under tension and injected with lidocaine and then subsequently sharply transected with scalpel incision and let recoil proximally. At this point in time I then subsequently used stick ties to tie off the rest of the peripheral vascular structures and once we had exact hemostasis thorough irrigation performed. This point in time we then let down the tourniquet and hemostasis was satisfactory. Patient was having soft blood pressures and given this was roughly 600 mL old blood loss and soft pressures we did go ahead and transfuse 1 unit PRBC intraoperatively. Which she responded well to. I then subsequently debulk the flap to allow for repair I then utilized electrocautery and shelled out the patella bone out of the quad tendon leaving the quad tendon intact for later repair. At this point in time once I was satisfied with this and the flap I then subsequently closed in layered fashion vancomycin powder was placed in w ound bed I tied the quad tendon into the stumps of the cruciates and then tied the collaterals and posterior musculature of hamstrings and gastroc's flaps up around the femur condyle. Once I was satisfied with the deep closure and fascia I then brought the gastroc fascia double bass player over utilizing STRATAFIX suture. I then brought the subcutaneous tissue together with 2 oh STRATAFIX suture and then karen for the skin. This was then covered with Xeroform 4 x 4's ABD fluffs Curlex and Devang wrap. Patient was then awakened from anesthesia and taken recovery in stable condition. Disposition: Patient taken to recovery in stable condition. He did receive 1 unit PRBC intraoperatively due to blood loss. He has responded well to this. Recovering well will be admitted to the floor for observation postoperatively. Hospitalist was consulted for assistance in medical management. Will recheck his labs. Patient family understand agree with current plan. All questions answered.
--- NOTE | 2025-07-23 17:13 | PM.CONSULT ---
Providers/Reason For Consult Consulting Physician/Specialty*: Right through the knee amputation Reason for Consult*: Medical management Attending Physician: Juanjo Brown DO Primary Care Provider: VASU Harris History of Present Illness History of Present Illness Tal Patricia is a 59 year old male with a past medical history of type 2 diabetes mellitus, history of chronic bilateral lower extremity wounds, venous stasis, history of CAD, history of peripheral arterial disease, he is nonambulatory for the last few years, history of lower extremity DVT on Coumadin, history of pulmonary embolism on Coumadin, currently on bridging therapy, who has right through the knee amputation, EBL 600 mL, seen postoperatively, has no complaints, no fevers, no chills, no cough, he has received 1 unit PRBC intraoperatively, no complaints currently, Review of Systems Card: Denies: chest pain Resp: Denies: dyspnea Medications/Allergies Home Medications ?Medication ?Instructions ?Recorded ?Confirmed ?Last Taken ?Type mDINR #1 ea 08/17/21 06/24/25 Unknown Rx abel lift #1 ea 03/01/22 06/24/25 Unknown Rx hospital bed with ability to #1 ea 10/29/22 06/24/25 Unknown Rx elevated HOB to 30 degrees Afo to the left foot #1 ea 03/27/23 06/24/25 Unknown Rx C pap-supplies #1 ea 05/04/23 06/24/25 Unknown Rx ibuprofen 800 mg tablet 800 mg PO Q8H PRN pain #90 tabs 06/21/23 07/22/25 03/09/25 Rx vitamin B complex 1 tab PO DAILY #90 tabs 09/19/23 07/22/25 07/19/25 Rx Juzos wraps bilaterally #1 ea 11/14/23 06/24/25 Unknown Rx blood sugar diagnostic (Blood #100 ea 01/04/24 06/24/25 Unknown Rx Glucose Test strips) blood-glucose meter (Blood Glucose #1 ea 01/04/24 06/24/25 Unknown Rx Monitoring kit) lancets 31 gauge (Comfort Touch #100 ea 01/04/24 06/24/25 Unknown Rx Ultra Thin Lancets) headgear, mask, hose and cpap #1 ea 07/14/24 06/24/25 Unknown Rx supplies ergocalciferol (vitamin D2) 1,250 50,000 unit PO .every 7 days #12 11/19/24 07/22/25 07/19/25 Rx mcg (50,000 unit) capsule caps insulin syringe-needle U-100 1 mL #100 ea 12/09/24 06/24/25 Unknown Rx 31 gauge x 5/16 (BD Insulin Syringe Ultra-Fine) dapagliflozin propanediol 10 mg 10 mg PO DAILY 03/05/25 07/22/25 07/19/25 History tablet (Farxiga) auto-titrating cpap 6-16cm #1 ea 06/26/25 Unknown Rx doxycycline hyclate 100 mg capsule 100 mg PO BID #28 caps 07/08/25 07/22/25 07/22/25 Rx enoxaparin 120 mg/0.8 mL 120 mg (0.8 mL) SUBCUT Q12H #8 mL 07/16/25 07/22/25 07/22/25 Rx subcutaneous syringe (Lovenox) chucks #100 ea 07/17/25 Unknown Rx wipes #300 ea 07/17/25 Unknown Rx citalopram 10 mg tablet 10 mg PO DAILY #90 tabs 07/22/25 07/22/25 07/19/25 Rx gabapentin 300 mg capsule 300 mg PO DAILY 07/22/25 07/22/25 07/21/25 History insulin NPH-regular 70-30 U-100 60 unit SUBCUT BID 07/22/25 07/23/25 07/23/25 07:00 History insulin 100 unit/mL subcutaneous pen (Novolin 70-30 FlexPen U-100 Insulin) pen needle, diabetic 32 gauge x #1,200 ea 07/22/25 Unknown Rx 5/32 (Liz Pen Needle) potassium citrate 10 mEq (1,080 10 meq PO BID #180 tabs 07/22/25 07/22/25 07/21/25 Rx mg) tablet,extended release triamterene 75 1 tab PO DAILY 07/22/25 07/22/25 07/22/25 History mg-hydrochlorothiazide 50 mg tablet warfarin 6 mg tablet 6 mg PO DAILY 07/22/25 07/22/25 07/19/25 History hydrocodone 7.5 mg-acetaminophen 1 tab PO Q6H PRN pain #20 tabs 07/23/25 Unknown Rx 325 mg tablet Allergies Allergy/AdvReac Type Severity Reaction Status Date / Time oxycodone (From Percocet) Allergy ADR-Irritab Verified 07/07/25 08:58 le PFSH Acute PFSH: Medical History Mixed incontinence Vitamin D deficiency Erectile dysfunction History of colon polyps PVD (peripheral vascular disease) Cellulitis of both lower extremities Hypertension Diabetes mellitus GERD (gastroesophageal reflux disease) Neuropathy Anticoagulant long-term use Hx of deep venous thrombosis Surgical History History of cataract surgery Hx of colonoscopy Family History Other Diabetes Hypertension Social History Smoking and tobacco/nicotine status: never used tobacco/nicotine Second hand smoke exposure: No Alcohol intake: never Substance/Drug Use: never Caregiver/support person: Yes (spouse) Lives independently: Yes Household members: spouse Marital status: service: No Current occupational status: retired Current gender identity: Male Special jesica needs: No Agree to transfusion: Yes Vitals/I&O/Wt Last Vital Signs Temp 97.3 F L 07/23/25 16:30 Pulse 82 07/23/25 17:00 Resp 18 07/23/25 17:00 BP 126/71 07/23/25 17:00 Pulse Ox 96 07/23/25 17:00 O2 Del Method Room Air 07/23/25 17:00 07/23/25 07/23/25 07/23/25 06:59 14:59 22:59 Intake Total 50 / 50 1300 / 1350 Output Total 600 / 600 Balance 50 / 50 700 / 750 Physical Exam Const: COMMON NORMALS: no acute distress and patient oriented x3 Eye: COMMON NORMALS: Equal, round and reactive pupils present PUPIL: Yes Equal, round and reactive pupils present Resp: COMMON NORMALS: normal respiratory effort, No retractions, No use of accessory muscles and clear to auscultation bilaterally AUSCULTATION: clear to auscultation bilaterally Cardio: COMMON NORMALS: regular rate, regular rhythm, S1 normal heart sound present and S2 normal heart sound present RATE: regular rate RHYTHM: regular rhythm HEART SOUNDS: S1 normal heart sound present and S2 normal heart sound present GI: COMMON NORMALS: Normal to inspection, nondistended, normoactive bowel sounds present and non-tender Extremity: COMMON NORMALS: no pedal edema OTHER: Right lower extremity wrapped Neuro: COMMON NORMALS: patient oriented x3 and CN's II-XII intact bilaterally Psych: COMMON NORMALS: mental status grossly normal A&P Assessment and plan 1. Hx of deep venous thrombosis: 2. Anticoagulant long-term use: 3. Diabetes mellitus: 4. Morbid obesity: 5. Chronic osteomyelitis of right foot: 6. Osteomyelitis of right foot: Plan: Right through the knee amputation - For right lower leg chronic wounds, chronic osteomyelitis, acquired cavovarus equinus deformity, patient is nonambulatory at baseline Plan - Pain control as per orthopedic team - EBL 600 mL, received 1 unit PRBC - After discussion with orthopedics, plan is to hold anticoagulant therapy postoperatively, decision to resume tomorrow morning will be based upon hemoglobin trend - Full code - SCDs for DVT prophylaxis - Type 2 diabetes mellitus, moderate dose sliding scale PDMP PDMP Reviewed: Not Reviewed Consult Attestations Medical Necessity Statement: Patient requires hospitalization through the knee amputation, type 2 diabetes, chronic lower extremity wounds, history of PE, history of DVT Diagnoses Hx of deep venous thrombosis Z86.718 Anticoagulant long-term use Z79.01 Diabetes mellitus E11.9 Morbid obesity E66.01 Chronic osteomyelitis of right foot M86.671 Osteomyelitis of right foot M86.9
[2025-07-23] MEDS: ondansetron 2 mg/ML SDV 2 mL 4 MG IVP ×2 (17:19→20:45)
[2025-07-23] MEDS: insulin regular-human 100 units/1 mL 5 UNIT SUBCUT (17:55)
--- NOTE | 2025-07-23 18:12 | PC.NURSE ---
1805 - Patient taken to Room 260 via bed. VS taken - BP 93/54, EDWARD Brown notified of BP and patient in room.
--- NOTE | 2025-07-23 18:19 | PC.NURSE ---
1735 - Dr. Austin notified patient's BS 265 - orders received. 5 units reg insulin given.
--- NOTE | 2025-07-23 18:30 | ANE.PACU2 ---
Inpatient post-anesthesia follow up: Airway intact: Yes Vital signs: Temperature 98.0 F Pulse Rate 79 Respiratory Rate 18 Blood Pressure 114/68 Pulse Oximetry 92 Oxygen Delivery Me thod BiPAP Oxygen Flow Rate Fraction of Inspir ed Oxygen Hydration adequate: Yes Nausea and vomiting: No Pain level: 1 Mental status: Baseline
[2025-07-23] MEDS: tranexamic acid 1,000 MG/100 ML PREMIX 600 MG IV (20:26)
[2025-07-23] MEDS: calcium carb-vit d 600mg/400unit 1 Tablet 1 EACH PO (20:26)
[2025-07-23] MEDS: chlorhexidine gluconate 0.12% Btl 473 mL 30 ML MUCOUS MEM (20:27)
[2025-07-23 22:22] LABS: Hematocrit 34.4 % (37-53); Hemoglobin 10.80 g/dL (11.27-16.99); Mean Corpuscular HGB Conc 31.4 g/dL (30-55); Mean Corpuscular Hemoglobin 27.9 pg (27-33); Mean Corpuscular Volume 88.9 fl (82-101); Nucleated Red Blood Cells % 0 %; Platelet Count 219 10^3/cmm (157-399); Red Blood Count 3.87 10^6/uL (3.85-5.65); White Blood Count 16.61 10^3/uL (3.29-11.43)
[2025-07-23 22:53] LABS: Alanine Aminotransferase 16 U/L (0-41); Albumin Level 3.0 g/dL (3.5-5.2); Alkaline Phosphatase 58 U/L (40-130); Anion Gap 21.3 (5-19); Aspartate Amino Transferase 19 U/L (0-40); Blood Urea Nitrogen 23 mg/dL (8-23); Calcium 7.3 mg/dL (8.5-10.5); Carbon Dioxide 19 mmol/L (22-29); Chloride 104 mmol/L (98-107); Creatinine Clr Calc Pharmacy 329.1286; Globulin 2.3 g/dL (1.3-4.6); Glucose 410 mg/dL (65-115); Osmolality Calculated 311 mOsm/kg (285-295); Potassium 4.3 mmol/L (3.5-5.1); Sodium 140 mmol/L (136-145); Total Protein 5.3 g/dL (6.6-8.7)
[2025-07-23] MEDS: ceFAZolin 3,000 MG in sodium chloride 0.9% (plus) 50 ML 100 MG IV (22:59)
[2025-07-24] VITALS (7 sets, daily range): BP systolic 96–142; BP diastolic 49–68; PULSE 75–83; RESP 15–18; TEMP 36.4–37; O2SAT 92–100
[2025-07-24 04:02] LABS: Hematocrit 32.7 % (37-53); Hemoglobin 10.30 g/dL (11.27-16.99); Mean Corpuscular HGB Conc 31.5 g/dL (30-55); Mean Corpuscular Hemoglobin 28.6 pg (27-33); Mean Corpuscular Volume 90.8 fl (82-101); Nucleated Red Blood Cells % 0 %; Platelet Count 236 10^3/cmm (157-399); Red Blood Count 3.60 10^6/uL (3.85-5.65); White Blood Count 18.52 10^3/uL (3.29-11.43)
[2025-07-24 04:32] LABS: Anion Gap 19.5 (5-19); Blood Urea Nitrogen 24 mg/dL (8-23); Calcium 7.4 mg/dL (8.5-10.5); Carbon Dioxide 21 mmol/L (22-29); Chloride 102 mmol/L (98-107); Creatinine Clr Calc Pharmacy 246.8465; Glucose 388 mg/dL (65-115); Osmolality Calculated 306 mOsm/kg (285-295); Potassium 4.5 mmol/L (3.5-5.1); Sodium 138 mmol/L (136-145)
[2025-07-24] MEDS: ceFAZolin 3,000 MG in sodium chloride 0.9% (plus) 50 ML 100 MG IV ×2 (05:37→13:24)
[2025-07-24] MEDS: insulin glargine 100 units/1 mL 20 UNIT SUBCUT (09:05)
[2025-07-24] MEDS: multivitamin therapeutic Tablet 1 TAB PO (09:06)
[2025-07-24] MEDS: calcium carb-vit d 600mg/400unit 1 Tablet 1 EACH PO ×2 (09:06→17:17)
[2025-07-24] MEDS: chlorhexidine gluconate 0.12% Btl 473 mL 30 ML MUCOUS MEM ×2 (09:07→12:01)
[2025-07-24 09:18] LABS: NT Pro B Type Natriuretic Pept 309 pg/mL (0-125)
[2025-07-24] MEDS: HYDROcodone-acetaminophen 5-325 mg Tablet PO ×2 (10:02→14:41)
[2025-07-24] MEDS: CITALOPRAM 10 MG TABLET PO (11:09)
--- NOTE | 2025-07-24 11:28 | P.PN_ITS ---
Subjective 2 Subjective: Patient seen and examined today he is doing well and in good spirits just complaining of pain but controlled medications. Had a slight dip in blood pressure but responded well to fluids overnight stable from Ortho standpoint. Hemoglobin 10.3 today. Vitals/I&O/Wt Last Vital Signs Temp 98.6 F 07/24/25 07:57 Pulse 81 07/24/25 07:57 Resp 18 07/24/25 07:57 BP 101/56 07/24/25 07:57 Pulse Ox 100 07/24/25 07:57 O2 Del Method BiPAP 07/24/25 07:57 07/23/25 07/24/25 07/24/25 22:59 06:59 14:59 Intake Total 1565 / 1615 1390 / 3005 290 / 290 Output Total 1100 / 1100 Balance 465 / 515 1390 / 1905 290 / 290 Weight last 48 hrs Weight 296 lb 2 oz Weight 285 lb Physical Exam 2 Narrative: Right through knee amputation has dressings on in place is clean dry and intact no evidence of saturation normal postoperative pain and tenderness palpation at incision site. Data 07/24/25 03:42 07/24/25 03:42 A&P Assessment and plan 1. Hx of deep venous thrombosis: 2. Anticoagulant long-term use: 3. Diabetes mellitus: 4. Morbid obesity: 5. Chronic osteomyelitis of right foot: 6. Osteomyelitis of right foot: 7. History of disarticulation of right knee: Plan: Postop day 1 right through the knee amputation Postoperative antibiotic Nonweightbearing right lower extremity Internal medicine on board as primary Hemoglobin 10.3 today?received 1 unit PRBC intraoperatively Labs reviewed Patient stable from Ortho standpoint PT/OT Home health care at discharge Pain control Antinausea medication Stable for discharge from orthopedic standpoint. At this point in time we will defer to primary care stable from primary care standpoint stable for discharge today. Patient and understand agree with current plan. Questions answered. Patient will follow-up in 2 weeks postoperatively. PDMP PDMP Reviewed: Not Reviewed Attestations 2 Medical Necessity Statement*: Ongoing care status post right through the knee amputation requiring 1 unit PRBC intraoperatively. Coding Level of Care Code Acute Code for Chg Fwd Diagnoses Hx of deep venous thrombosis Z86.718 Anticoagulant long-term use Z79.01 Diabetes mellitus E11.9 Morbid obesity E66.01 Chronic osteomyelitis of right foot M86.671 Osteomyelitis of right foot M86.9 History of disarticulation of right knee Z89.611 Time Spent (min) 15
--- NOTE | 2025-07-24 11:30 | P.DS_ITS ---
Discharge Providers Date of Admission: 07/23/25 18:07 Date of Discharge: July 27, 2025 Attending Provider at Admission: Juanjo Brown DO Attending Provider at Discharge: Juanjo Brown DO Consults: Dr. Mnotgomery?hospitalist Primary Care Provider: VASU Harris Diagnoses at Discharge Discharge Diagnosis 1. History of disarticulation of right knee: 2. Hx of deep venous thrombosis: 3. Anticoagulant long-term use: 4. Type 2 diabetes mellitus with hyperglycemia, with long-term current use of insulin: 5. Morbid obesity: 6. Chronic osteomyelitis of right foot: 7. 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 At this point in time he was booked for right lower extremity amputation possible below the knee amputation versus through the knee amputation versus [id number] amputation he subsequently presented was medically optimized prior to procedure. Then subsequently underwent a right through the knee amputation (knee disarticulation. He did have increased blood loss intraoperatively which required 1 unit PRBC of the surgery however he recovered well responded well with this was taken recovery in stable condition was admitted to floor postoperatively for observation his labs were monitored daily as well as pain control and resuming of his anticoagulants after checking of his hemoglobin. Hospice is on board please refer to the consult note Daily progress notes patient progressed appropriately postoperatively and was deemed stable for discharge on postoperative day 1 by the orthopedics and internal medicine team. Patient received appropriate discharge structure as well as pain medication postoperatively dressing was maintained and changed as needed during the hospitalization and given appropriate discharge instructions. Patient will resume anticoagulant medication per the hospitalist recommendations as well as we will discharge patient on prophylactic antibiotics. Follow-up in 2 weeks. Patient family understand agree with current plan. Questions answered. Physical Exam Narrative: Right through knee amputation has dressings on in place is clean dry and intact no evidence of saturation normal postoperative pain and tenderness palpation at incision site. Discharge Data Studies Completed and Pending Pending at discharge Category Date Time Status Pathology: Surgical [PTH] Routine Pth 07/23/25 16:13 Received Laboratory Results WBC 18.52 10^3/uL (3.29-11.43) H 07/24/25 03:42 RBC 3.60 10^6/uL (3.85-5.65) L 07/24/25 03:42 Hgb 10.30 g/dL (11.27-16.99) L 07/24/25 03:42 Hct 32.7 % (37-53) L 07/24/25 03:42 MCV 90.8 fl (82-101) 07/24/25 03:42 MCH 28.6 pg (27-33) 07/24/25 03:42 MCHC 31.5 g/dL (30-55) 07/24/25 03:42 RDW 16.1 % (12.1-15.1) H 07/24/25 03:42 Plt Count 236 10^3/cmm (157-399) 07/24/25 03:42 MPV 9.2 fL (7.4-10.4) 07/24/25 03:42 Neut % (Auto) 86.7 % 07/24/25 03:42 Lymph % (Auto) 7.9 % 07/24/25 03:42 [place] % (Auto) 3.5 % 07/24/25 03:42 Eos % (Auto) 0.1 % 07/24/25 03:42 Baso % (Auto) 0.2 % 07/24/25 03:42 Neut # (Auto) 16.06 10^3/uL (1.8-7.7) H 07/24/25 03:42 Lymph # (Auto) 1.5 10^3/uL (0.8-4.8) 07/24/25 03:42 [place] # (Auto) 0.6 10^3/uL (0.2-0.9) 07/24/25 03:42 Eos # (Auto) 0.0 10^3/uL (0.0-0.8) 07/24/25 03:42 Baso # (Auto) 0.0 10^3/uL (0.0-0.1) 07/24/25 03:42 Nucleated RBC % (auto) 0 % 07/24/25 03:42 Nucleated RBCs # 0.0 /100WBC 07/24/25 03:42 Sodium 138 mmol/L (136-145) 07/24/25 03:42 Potassium 4.5 mmol/L (3.5-5.1) 07/24/25 03:42 Chloride 102 mmol/L (98-107) 07/24/25 03:42 Carbon Dioxide 21 mmol/L (22-29) L 07/24/25 03:42 Anion Gap 19.5 (5-19) H 07/24/25 03:42 BUN 24 mg/dL (8-23) H 07/24/25 03:42 Creatinine 0.4 mg/dL (0.7-1.2) L 07/24/25 03:42 GFR Calculation 218.7 mL/min (90-130) H 07/24/25 03:42 Glucose 388 mg/dL (65-115) H 07/24/25 03:42 POC Glucose 282 mg/dL (70-110) H 07/24/25 16:30 Calculated Osmolality 306 mOsm/kg (285-295) H 07/24/25 03:42 Calcium 7.4 mg/dL (8.5-10.5) L 07/24/25 03:42 Total Bilirubin 0.4 mg/dL (0.15-1.2) 07/23/25 22:16 AST 19 U/L (0-40) 07/23/25 22:16 ALT 16 U/L (0-41) 07/23/25 22:16 Alkaline Phosphatase 58 U/L (40-130) 07/23/25 22:16 NT-Pro-B Natriuret Pep 309 pg/mL (0-125) H 07/24/25 03:42 Total Protein 5.3 g/dL (6.6-8.7) L 07/23/25 22:16 Albumin 3.0 g/dL (3.5-5.2) L 07/23/25 22:16 Globulin 2.3 g/dL (1.3-4.6) 07/23/25 22:16 Urine Color Yellow (Yellow) 07/24/25 13:40 Urine Appearance Cloudy (CLEAR) A 07/24/25 13:40 Urine pH 5.5 (5-7) 07/24/25 13:40 Ur Specific [place] 1.026 (1.005-1.030) 07/24/25 13:40 Urine Protein Negative (Negative) 07/24/25 13:40 Urine Glucose (UA) 3+ (Normal) H 07/24/25 13:40 Urine Ketones 1+ (Negative) H 07/24/25 13:40 Urine Blood Negative (Negative) 07/24/25 13:40 Urine Nitrate Negative (Negative) 07/24/25 13:40 Urine Bilirubin Negative (Negative) 07/24/25 13:40 Urine Urobilinogen 0.2 mg/dL (Negative) 07/24/25 13:40 Ur Leukocyte Esterase 1+ (Negative) A 07/24/25 13:40 Urine RBC 21-50 /hpf (0-2) H 07/24/25 13:40 Urine WBC >100 /hpf (0-5) H 07/24/25 13:40 Ur Squamous Epith Cells 0-5 /hpf (0-5) 07/24/25 13:40 Amorphous Sediment Not Reportable 07/24/25 13:40 Urine Bacteria None seen /hpf (NONE) 07/24/25 13:40 Hyaline Casts 2.46 /lpf 07/24/25 13:40 Urine Yeast 3+ /hpf H 07/24/25 13:40 Blood Type B Positive 07/23/25 16:05 Rho(D) Type Rh positive 07/23/25 16:05 Antibody Screen Negative 07/23/25 16:05 Crossmatch See Detail 07/23/25 16:05 Vitals Last Vital Signs Temp 98.5 F 07/24/25 17:59 Pulse 83 07/24/25 17:59 Resp 17 07/24/25 17:59 BP 106/66 07/24/25 17:59 Pulse Ox 99 07/24/25 17:59 O2 Del Method BiPAP 07/24/25 07:57 Discharge Plan Discharge Patient Disposition: Home Health Service Condition: Stable Prescriptions: New hydrocodone-acetaminophen 7.5-325 mg tablet 1 tab PO Q6H PRN (Reason: pain) Qty: 20 0RF cephalexin 500 mg capsule 500 mg PO Q8H 10 Days Qty: 30 0RF Continued (DME) Afo to the left foot See Rx Instructions .Route .MEDSUPPLY Qty: 1 0RF Rx Instructions: As directed (DME) hospital bed with ability to elevated HOB to 30 degrees See Rx Instructions .Route .MEDSUPPLY Qty: 1 0RF Rx Instructions: As directed (DME) headgear, mask, hose and cpap supplies See Rx Instructions .Route .MEDSUPPLY Qty: 1 0RF Rx Instructions: As directed ([facility] [place] mDINR See Rx Instructions .Route .MEDSUPPLY Qty: 1 0RF Rx Instructions: As directed ([facility] [place]) abel lift See Rx Instructions .Route .MEDSUPPLY Qty: 1 0RF Rx Instructions: As directed ([facility] [place]) C pap-supplies See Rx Instructions .Route .MEDSUPPLY Qty: 1 12RF Rx Instructions: As directed vitamin B complex Tablet 1 tab PO DAILY Qty: 90 1RF ([facility] [place]) Juzos wraps bilaterally See Rx Instructions .Route .MEDSUPPLY Qty: 1 0RF Rx Instructions: As directed ([facility] [place]) Blood Glucose Test Strip See Rx Instructions .ROUTE .MEDSUPPLY Qty: 100 6RF Rx Instructions: As directed; to test 2 x day ([facility] [place]) blood-glucose meter [Blood Glucose Monitoring] Kit See Rx Instructions .ROUTE .MEDSUPPLY Qty: 1 0RF Rx Instructions: As directed; pt to test 2 x day ([facility] [place]) Comfort Touch Ult Thin Lancets 31 gauge misc See Rx Instructions .Route Qty: 100 5RF Rx Instructions: check blood sugars twice daily and PRN ergocalciferol (vitamin D2) 1,250 mcg (50,000 unit) capsule 50,000 unit PO .every 7 days Qty: 12 3RF ([facility] [place]) insulin syringe-needle U-100 [BD Insulin Syringe Ultra-Fine] 1 mL 31 gauge x 5/16 syringe See Rx Instructions .ROUTE .COMPLEX Qty: 100 6RF Dose Instruction: USE TWICE DAILY with insulin Rx Instructions: USE TWICE DAILY with insulin ([facility] [place]) auto-titrating cpap 6-16cm See Rx Instructions .Route .MEDSUPPLY Qty: 1 0RF Rx Instructions: As directed doxycycline hyclate 100 mg capsule 100 mg PO BID Qty: 28 0RF enoxaparin [Lovenox] 120 mg/0.8 mL syringe 120 mg SUBCUT Q12H Qty: 8 0RF ([facility] [place]) wipes See Rx Instructions .Route .MEDSUPPLY Qty: 300 12RF Rx Instructions: As directed ([facility] [place]) abisai See Rx Instructions .Route .MEDSUPPLY Qty: 100 12RF Rx Instructions: As directed citalopram 10 mg tablet 10 mg PO DAILY Qty: 90 0RF Rx Instructions: TAKE ONE TABLET BY MOUTH DAILY potassium citrate 10 mEq (1,080 mg) tablet extended release 10 meq PO BID Qty: 180 0RF Rx Instructions: TAKE ONE TABLET BY MOUTH DAILY (DME) pen needle, diabetic [Liz Pen Needle] 32 gauge x 5/32 needle See Rx Instructions .ROUTE .COMPLEX Qty: 1200 0RF Dose Instruction: USE DIRECTED FOR TWICE DAILY injections Rx Instructions: USE DIRECTED FOR TWICE DAILY injections warfarin 6 mg tablet 6 mg PO DAILY Rx Instructions: TAKE ONE TABLET BY MOUTH DAILY gabapentin 300 mg capsule 300 mg PO DAILY Rx Instructions: TAKE ONE CAPSULE BY MOUTH DAILY triamterene-hydrochlorothiazid 75-50 mg tablet 1 tab PO DAILY Rx Instructions: TAKE ONE TABLET BY MOUTH DAILY Novolin 70-30 FlexPen U-100 100 unit/mL (70-30) insulin pen 60 unit SUBCUT BID Rx Instructions: INJECT 60 UNITS SUBCUTANEOUSLY TWICE DAILY dapagliflozin propanediol [Farxiga] 10 mg tablet 10 mg PO DAILY Rx Instructions: TAKE ONE TABLET BY MOUTH DAILY Discontinued ibuprofen 800 mg tablet 800 mg PO Q8H PRN (Reason: pain) Qty: 90 2RF No Action amoxicillin-pot clavulanate 875-125 mg tablet 1 tab PO BID Qty: 14 0RF ondansetron 4 mg tablet,disintegrating 4 mg PO Q6H PRN (Reason: nausea and vomiting) Qty: 14 0RF 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 If you have not heard from them within the next 2 business days, please call them directly. Juanjo Brown DO [Physician, Orthopedics] - 08/05/25 10:00 am Discharge Diet: Regular Discharge Activity: Limit activity as instructed Patient Instructions: Cephalexin (By mouth), Hydrocodone/Acetaminophen (By mouth), Ondansetron (By mouth) (Zofran, Zofran ODT, Zuplenz), Acute Wound Care (DC), Above the Knee Amputation (DC), Opioid Safety, Post Anesthesia Care, Patient Portal & Phyllis Instructions Activity Restrictions/Additional Instructions: Orthopedic D/C instructions Leave dressing on dry and intact May leave dressing on in place until follow-up Only change if appreciated dressing saturations No recommendation for daily dressing changes Nonweightbearing on operative lower extremity Do not submerge incision/dressing in any water. Elevation and ice as needed for pain and swelling Take pain medication as prescribed Take antinausea medication as needed Take antibiotic as prescribed May supplement with [id number] anti-inflammatories (make sure not to take more than 3000 mg of Tylenol in 1 day as your pain medication does have Tylenol in it) Follow-up in the orthopedic office in 2 weeks Contact the office for any questions or concerns - For your Coumadin - Please continue Coumadin 6 mg daily, started today - Please have your INR rechecked on Sunday - Continue to bridge Lovenox 120 mg twice daily - Once your INR is greater than 2, between 2-3, then your Lovenox can be discontinued - Please reach out to your primary care provider on Sunday, with your INR for further instructions - If you develop bloody or black stools please go to the emergency room Discharge Attestations Time Spent in Discharge Care*: less than 30 min Quality Metrics Clinical Quality Measures [ No reported AMI, CVA or VTE this stay] Coding Level of Care Code Acute Code for Chg Fwd Diagnoses History of disarticulation of right knee Z89.611 Hx of deep venous thrombosis Z86.718 Anticoagulant long-term use Z79.01 Type 2 diabetes mellitus with hyperglycemia, with long-term current use of insulin E11.65; Z79.4 Diabetes mellitus type: type 2 Diabetes mellitus mcc insulin use: with mcc use Diabetes mellitus complication status: with hyperglycemia Morbid obesity E66.01 Chronic osteomyelitis of right foot M86.671 Osteomyelitis of right foot, unspecified type M86.9 Osteomyelitis type: unspecified type
--- NOTE | 2025-07-24 12:58 | P.PN_ITS ---
Subjective 2 Subjective: Patient was seen this morning - Currently alert oriented x 3, follow ayden pavon, has no pain complaints, no chest pain, shortness of breath, no abdominal pain, no diarrhea, no rashes, no dysuria - He has blood sugars are elevated - Plan on continuing his NPH at home he uses 60 units twice daily - Discussed with him for his history of DVT/PE, he wants to continue Coumadin, he has been on Eliquis before but he prefers Coumadin - Plan on continuing Coumadin 6 mg daily starting today - Continue to bridge with Lovenox - Recheck INR on Sunday - Primary care provider will have to adj ust Coumadin dosing - The goal is to keep his INR between 2- 3 - Once his INR is between 2-3, he can th en come off the Lovenox bridge - Monitor for bloody or black stools or hematemesis - Follow-up with primary care provider o n Sunday Vitals/I&O/Wt Last Vital Signs Temp 98.0 F 07/24/25 11:50 Pulse 79 07/24/25 11:50 Resp 18 07/24/25 11:50 BP 114/68 07/24/25 11:50 Pulse Ox 92 07/24/25 11:50 O2 Del Method BiPAP 07/24/25 07:57 07/23/25 07/24/25 07/24/25 22:59 06:59 14:59 Intake Total 1565 / 1615 1390 / 3005 290 / 290 Output Total 1100 / 1100 Balance 465 / 515 1390 / 1905 290 / 290 Weight last 48 hrs Weight 134.32 kg Weight 129.274 kg Physical Exam 2 Const: COMMON NORMALS: no acute distress and patient oriented x3 Resp: COMMON NORMALS: normal respiratory effort, No retractions, No use of accessory muscles and clear to auscultation bilaterally AUSCULTATION: clear to auscultation bilaterally Cardio: COMMON NORMALS: regular rate, regular rhythm, S1 normal heart sound present and S2 normal heart sound present RATE: regular rate RHYTHM: r egular rhythm HEART SOUNDS: S1 normal heart sound present and S2 normal heart sound present GI: COMMON NORMALS: Normal to inspection, nondistended, normoactive bowel sounds present and non-tender Extremity: COMMON NORMALS: no pedal edema NARRATIVE EXTREMITY EXAM: Surgical site is wrapped Neuro: COMMON NORMALS: patient oriented x3 Psych: COMMON NORMALS: mental status grossly normal Data 07/24/25 03:42 07/24/25 03:42 A&P Assessment and plan 1. Hx of deep venous thrombosis: 2. Anticoagulant long-term use: 3. Diabetes mellitus: 4. Morbid obesity: 5. Chronic osteomyelitis of right foot: 6. Osteomyelitis of right foot: Plan: Right through the knee amputation - For right lower leg chronic wounds, chronic osteomyelitis, acquired cavovarus equinus deformity, patient is nonambulatory at baseline Plan - Pain control as per orthopedic team - EBL 600 mL, received 1 unit PRBC, hemoglobin stable 10.3 - Discharge on Coumadin Lovenox bridge - Continue home insulin PDMP PDMP Reviewed: Not Reviewed Attestations 2 Medical Necessity Statement*: patient will be discharged today Diagnoses Hx of deep venous thrombosis Z86.718 Anticoagulant long-term use Z79.01 Diabetes mellitus E11.9 Morbid obesity E66.01 Chronic osteomyelitis of right foot M86.671 Osteomyelitis of right foot M86.9
[2025-07-24 13:57] LABS: Glucose Urine UA 3+ (Normal); Nitrate Urine Negative (Negative); Specific Gravity, Urine 1.026 (1.005-1.030)
[2025-07-24 14:05] LABS: Add Urine Microscopic? YES
[2025-07-24 14:29] LABS: UA Slide Review UA Slide Review Perf
== END 2025-07-24 18:01 | disposition home health service (06) | DRG 617 ==
LOC: MEDSURG 18:08
PROVIDERS: Family Medicine; Internal Medicine; Admitting Provider Student in an Organized Health Care Education/Training Program; PCP Nurse Practitioner Family; Visit Provider Student in an Organized Health Care Education/Training Program
PROC: 0Y6H0Z1 Detachment at Right Lower Leg, High, Open Approach (ICD-10-PCS; CPT 27590; 2025-07-23 14:20)
DX: E11.621 Type 2 diabetes mellitus with foot ulcer (principal); M86.671 Other chronic osteomyelitis, right ankle and foot; Z68.42 Body mass index [BMI] 45.0-49.9, adult; E11.69 Type 2 diabetes mellitus with other specified complication; K21.9 Gastro-esophageal reflux disease without esophagitis; I10 Essential (primary) hypertension; E11.40 Type 2 diabetes mellitus with diabetic neuropathy, unspecified; I25.10 Atherosclerotic heart disease of native coronary artery without angina pectoris; E11.51 Type 2 diabetes mellitus with diabetic peripheral angiopathy without gangrene; E66.01 Morbid (severe) obesity due to excess calories; L97.519 Non-pressure chronic ulcer of other part of right foot with unspecified severity; Z79.01 Long term (current) use of anticoagulants; Z79.4 Long term (current) use of insulin; Z79.899 Other long term (current) drug therapy; Z88.5 Allergy status to narcotic agent; Z86.0100 Personal history of colon polyps, unspecified; Z86.718 Personal history of other venous thrombosis and embolism; Z86.711 Personal history of pulmonary embolism
CPT/HCPCS: 36415; 36416; 80048; 80053; 81001; 82962; 83880; 85025; 86850; 86900; 86920; 87086; 88307; 88311; 96372; 97110; 97165; J0131; J0690; J1100; J1171; J1650; J1815; J1885; J2250; J2405; J2704; J2795; J3010; J3373; J3490; J7030; J7120; J9999; P9016; P9045

== ENCOUNTER 2025-07-26 00:17 | Emergency (ER) | payer MEDICARE, MEDICAID, SELFPAY ==
[2025-07-26] VITALS (7 sets, daily range): BP systolic 102–156; BP diastolic 58–76; PULSE 66–94; RESP 17–18; TEMP 36.8; O2SAT 93–98; BMI 45.0
--- OUTSIDE RECORDS SUMMARY | 2025-07-26 00:26 | XMS_ITS | Encounter Summary ---
Author Organization [employer] [facility] Address [address] [place] [address] Care Team Providers Care Ndt Inspector Name Role Phone Unavailable Primary Care Provider Unavailabl e Encounter Details Date Type Department Care Team (Latest Contact Info) Description 05/20/2002 Outpatient Historical [facility] Humberto Bell MD [address] [place] [address] DIABETES UNCOMPL [place]AME[place]-TYPE I (CMS/HCC) (Primary Dx) Social History Tobacco Use Types Packs/Day Years Used Date Smoking Tobacco: Never Assessed Sex and Gender Information Value Date Recorded Sex Assigned at Not on file 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
--- OUTSIDE RECORDS SUMMARY | 2025-07-26 00:26 | XMS_ITS | Encounter Summary ---
Author Organization [employer] [facility] Address [address] [place] [address] Care Team Providers Care Special Education Director Name Role Phone Unavailable Primary Care Provider Unavailabl e Encounter Details Date Type Department Care Team (Latest Contact Info) Description 02/13/2002 Outpatient Historical HIS [facility] Humberto Bell MD [address] [place] [address] DIABETES UNCOMPL SHAMEKA-TYPE I (CMS/HCC) (Primary Dx) Social History Tobacco Use Types Packs/Day Years Used Date Smoking Tobacco: Never Assessed Sex and Gender Information Value Date Recorded Sex Assigned at Not on file 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
--- OUTSIDE RECORDS SUMMARY | 2025-07-26 00:26 | XMS_ITS | Encounter Summary ---
Author Organization [employer] [facility] Address [address] [place] [address] Care Team Providers Care Laborer Aquatic Life Name Role Phone Unavailable Primary Care Provider Unavailabl e Encounter Details Date Type Department Care Team (Latest Contact Info) Description 01/13/2002 Outpatient Historical HIS [facility] Humberto Bell MD [address] [place] [address] DIABETES UNCOMPL SHAMEKA-TYPE I ([facility]) (Primary Dx); DIAB NEURO MANIF SHAMEKA ([facility]) Social History Tobacco Use Types Packs/Day Years Used Date Smoking Tobacco: Never Assessed Sex and Gender Information Value Date Recorded Sex Assigned at Not on file 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
--- OUTSIDE RECORDS SUMMARY | 2025-07-26 00:26 | XMS_ITS | Encounter Summary ---
Author Organization [employer] [facility] Address [address] [place] [address] Care Team Providers Care Semiconductor Lab Technician Name Role Phone Unavailable Primary Care Provider Unavailabl e Encounter Details Date Type Department Care Team (Latest Contact Info) Description 03/18/2002 Outpatient Historical HIS [facility] Humberto Bell MD [address] [place] [id number] DIABETES UNCOMPL SHAMEKA-TYPE I (CMS/HCC) (Primary Dx); OBESITY NOS; PERIPH VASCULAR DIS NOS Social History Tobacco Use Types Packs/Day Years Used Date Smoking Tobacco: Never Assessed Sex and Gender Information Value Date Recorded Sex Assigned at Not on file 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
--- OUTSIDE RECORDS SUMMARY | 2025-07-26 00:26 | XMS_ITS | Clinical Summary ---
Author Organization [employer] [facility] Address [address] 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
--- OUTSIDE RECORDS SUMMARY | 2025-07-26 00:26 | XMS_ITS | Clinical Summary ---
Author Organization Marychuy Miles [facility] Address [address] [place] [address] Phone Care Team Providers Care Tankman Name Role Phone Unavailable Primary Care Provider Unavailabl e Allergies No known active allergies Medications warfarin (COUMADIN) 6 mg tablet Take 6 mg by mouth daily. Active ofloxacin (OCUFLOX) 0.3 % solution 1 Drop by See Admin Instructions route 4 times daily. Active DAPAGLIFLOZ PROPANED-METFOR MIN ORAL Take 10 mg by mouth daily. Active insulin NPH-regular (HUMULIN 70-30,NOVOLIN 70-30) 100 unit/mL (70-30) injection Inject 54 Units by subcutaneous injection 2 times daily before meals. Active gabapentin (NEURONTIN) 100 mg capsule Take 200 mg by mouth daily. Active hydroCHLOROthia zide 25 mg tablet Take 25 mg by mouth daily. Active triamterene-hyd roCHLOROthiazid e (MAXZIDE) 75-50 mg tablet Take 1 Tablet by mouth daily. Active potassium citrate (UROCIT-K) 10 mEq (1,080 mg) Extended Release tablet Take 10 mEq by mouth daily. Active citalopram (CeleXA) 10 mg tablet Take 10 mg by mouth daily. Active diphenoxylate-a tropine 2.5 mg-0.025 mg tablet Take 1 Tablet by mouth 1 time daily as needed for Diarrhea/Loose Stools. Active cranberry fruit concentrate (AZO CRANBERRY ORAL) Take 250 mg by mouth 1 time daily as needed for Other (See Comment). Active melatonin 5 mg Tablet Take 5 mg by mouth nightly as needed for Insomnia. Active ERGOCALCIFEROL, VITAMIN D2, ORAL Take 1,250 mcg by mouth every 7 days. Active vitamin B complex Tablet Sustained Release Take 1 Tablet by mouth daily. Active Active Problems No known active problems Social History Tobacco Use Types Packs/Day Years Used Date Smoking Tobacco: Never Tobacco Cessation:Counseling Given: Not Answered Feeling Safe Answer Date Recorded Are you in a relationship wi th someone who hurts you emotionally and/or physically? No 01/14/2025 Sex and Gender Information Value Date Recorded Sex Assigned at Not on file Legal Sex Male 2:18 PM [employer] Gender Identity Not on file Sexual Orientation Not on file Last Filed Vital Signs Vital Sign Reading Time Taken Comments Blood Pressure 141/59 01/14/2025 12:51 PM CDT Pulse 66 01/14/2025 12:51 PM CDT Temperature 36.3 C (97.4 F) 01/14/2025 12:51 PM CDT Respiratory Rate 17 01/14/2025 12:51 PM CDT Oxygen Saturation 100% 01/14/2025 12:51 PM CDT Inhaled Oxygen Concentration - - Weight 115.7 kg (255 lb) 01/14/2025 11:39 AM CDT Height 167.6 cm (5' 6 ) 01/14/2025 11:39 AM CDT Body Mass Index 41.16 01/14/2025 11:39 AM CDT Plan of Treatment Health Maintenance Due Date Last Done Comments DIABETES ANNUAL RETINAL EXAM 1981 DIABETES MICROALBUMIN ANNUAL SCREEN 1981 LDL CHOLESTEROL ANNUAL 1981 DTAP/TDAP/TD VACCINES (1 - Tdap) 1982 COLORECTAL SCREENING 2008 Colorectal Cancer Screening 2008 FIT-DNA Q 3 years 2008 FIT/FOBT Q 1 year 2008 Flex Sig/CT Colonography Q 5 years 2008 ZOSTER VACCINE (1 of 2) 2013 DIABETES ANNUAL FOOT EXAM 05/09/2022 05/09/2021 RSV VACCINE (60+ or ) (1 - Risk 60-74 years 1-dose series) 2023 DIABETES HBA1C Q 6 MONTHS 12/11/2024 06/10/2024 INFLUENZA VACCINE (#1) 2025 Medical Devices Implanted Type Area Brush Or Broom Cutter Device Identifier Shelf Expiration Date Model / Serial / Lot Lens Iol Kati Mcmillan 19.5 [id number] - [id number] Implanted:Qty: 1 on 10/15/2024 by Shahbaz Art MD at [facility] Lens Right: Eye [employer] 03/31/2027 [id number] / [id number] / Lens Iol Kati Mcmillan 19.5 [id number] - [id number] Implanted:Qty: 1 on 01/14/2025 by Shahbaz Art MD at [facility] Lens Left: Eye [employer] 06/18/2027 [id number] / [id number] / Procedures Procedure Name Priority Date/Time Associated Diagnosis Comments HEMOGLOBIN A1C Routine 06/10/2024 from Last 3 Months or Most Recently Relevant to Health Maintenance Results * (ABNORMAL) HEMOGLOBIN A1C (06/10/2024) ABSTRACTED HGB A1C 7.7 % Blood us Abstract Provider CHEMISTRY ORDERABLES Edited Re sult - Final from Last 3 Months or Most Recently Relevant to Health Maintenance Insurance [place] [employer] [facility] Advance Directives For more information, please contact: [phone] * Full Code (Latest Code Status on File) Date Activated Date Inactivated Comments 01/14/2025 11:41 AM 01/14/2025 3:18 PM * Full Code Date Activated Date Inactivated Comments 10/15/2024 10:12 AM 10/15/2024 1:24 PM
--- NOTE | 2025-07-26 00:52 | XRR_ITS ---
PROCEDURE INFORMATION: Exam: XR Chest Exam date and time: 07/26/2025 12:54 AM Age: 59 years old Clinical indication: Other: Hypotensive; Additional info: Low BP TECHNIQUE: Imaging protocol: Radiologic exam of the chest. Views: 1 view. COMPARISON: CR XR chest 2V* [id number] 02/05/2024 1:51 PM FINDINGS: Lungs: Unremarkable. No consolidation. Pleural spaces: Unremarkable. No pleural effusion. No pneumothorax. Heart/Mediastinum: Unremarkable. No cardiomegaly. Bones/joints: Unremarkable. XR/XR chest 1V portable [id number] IMPRESSION: No acute findings.
[2025-07-26 00:54] LABS: Hematocrit 24.5 % (37-53); Hemoglobin 8.00 g/dL (11.27-16.99); Mean Corpuscular HGB Conc 32.7 g/dL (30-55); Mean Corpuscular Hemoglobin 29.0 pg (27-33); Mean Corpuscular Volume 88.8 fl (82-101); Nucleated Red Blood Cells % 0 %; Platelet Count 186 10^3/cmm (157-399); Red Blood Count 2.76 10^6/uL (3.85-5.65); White Blood Count 9.56 10^3/uL (3.29-11.43)
--- NOTE | 2025-07-26 01:01 | W.ED.EXTPRO ---
HPI - Extremity Problem General: Chief complaint: Extremity Problem,Nontraumatic Stated complaint: Right leg pain Time Seen by Provider: 07/26/25 00:46 History of Present Illness: Patient is a 59-year-old male who presents for evaluation of pain at his amputation site. The patient underwent a lower extremity amputation on (2 days ago, bka Left side). He describes the pain as 'really bad' and localized to the stump area. Associated symptoms include sweating, hyperglycemia, and hypotension per patient report. The patient was discharged from the hospital with a UTI. His caregiver reports decreased urine output today despite increased fluid intake. The patient has been experiencing nausea, particularly when sitting upright, and has been described as lethargic today. The caregiver reports the patient became very sick during transport home yesterday. The patient denies any drainage or leakage from the surgical site. He reports a mild cough and has been practicing his incentive spirometry. Related Data Home Medications ?Medication ?Instructions ?Recorded ?Confirmed dapagliflozin propanediol 10 mg 10 mg PO DAILY 03/05/25 07/22/25 tablet (Farxiga) gabapentin 300 mg capsule 300 mg PO DAILY 07/22/25 07/22/25 insulin NPH-regular 70-30 U-100 60 unit SUBCUT BID 07/22/25 07/23/25 insulin 100 unit/mL subcutaneous pen (Novolin 70-30 FlexPen U-100 Insulin) triamterene 75 1 tab PO DAILY 07/22/25 07/22/25 mg-hydrochlorothiazide 50 mg tablet warfarin 6 mg tablet 6 mg PO DAILY 07/22/25 07/22/25 Previous Rx's ?Medication ?Instructions ?Recorded mDINR #1 ea 08/17/21 abel lift #1 ea 03/01/22 hospital bed with ability to #1 ea 10/29/22 elevated HOB to 30 degrees Afo to the left foot #1 ea 03/27/23 C pap-supplies #1 ea 05/04/23 vitamin B complex 1 tab PO DAILY #90 tabs 09/19/23 Juzos wraps bilaterally #1 ea 11/14/23 blood sugar diagnostic (Blood #100 ea 01/04/24 Glucose Test strips) blood-glucose meter (Blood Glucose #1 ea 01/04/24 Monitoring kit) lancets 31 gauge (Comfort Touch #100 ea 03/08/24 Ultra Thin Lancets) headgear, mask, hose and cpap #1 ea 07/14/24 supplies ergocalciferol (vitamin D2) 1,250 50,000 unit PO .every 7 days #12 11/19/24 mcg (50,000 unit) capsule caps insulin syringe-needle U-100 1 mL #100 ea 12/09/24 31 gauge x 5/16 (BD Insulin Syringe Ultra-Fine) auto-titrating cpap 6-16cm #1 ea 06/26/25 doxycycline hyclate 100 mg capsule 100 mg PO BID #28 caps 07/08/25 enoxaparin 120 mg/0.8 mL 120 mg (0.8 mL) SUBCUT Q12H #8 mL 07/16/25 subcutaneous syringe (Lovenox) chucks #100 ea 07/17/25 wipes #300 ea 07/17/25 citalopram 10 mg tablet 10 mg PO DAILY #90 tabs 07/22/25 pen needle, diabetic 32 gauge x #1,200 07/22/25/32 (Liz Pen Needle) potassium citrate 10 mEq (1,080 10 meq PO BID #180 tabs 07/22/25 mg) tablet,extended release cephalexin 500 mg capsule 500 mg PO Q8H 10 days #30 caps 07/23/25 hydrocodone 7.5 mg-acetaminophen 1 tab PO Q6H PRN pain #20 tabs 07/23/25 325 mg tablet amoxicillin 875 mg-potassium 1 tab PO BID #14 tabs 07/26/25 clavulanate 125 mg tablet ondansetron 4 mg disintegrating 4 mg PO Q6H PRN nausea and 07/26/25 tablet vomiting #14 tabs Allergies Allergy/AdvReac Type Severity Reaction Status Date / Time oxycodone (From Percocet) Allergy ADR-Irritab Verified 07/07/25 08:58 [facility] ED PFS: Medical History (Updated 07/26/25 @ 05:03 by Nabil Roe DO) Mixed incontinence Vitamin D deficiency Erectile dysfunction History of colon polyps PVD (peripheral vascular disease) Cellulitis of both lower extremities Hypertension Diabetes mellitus GERD (gastroesophageal reflux disease) Neuropathy Anticoagulant long-term use Hx of deep venous thrombosis Surgical History (Updated 07/24/25 @ 11:30 by Juanjo Brown DO) History of cataract surgery Hx of colonoscopy Family History Other Diabetes Hypertension Social History Smoking and tobacco/nicotine status: never used tobacco/nicotine Second hand smoke exposure: No Alcohol intake: never Substance/Drug Use: never Caregiver/support person: Yes (spouse) Lives independently: Yes Household members: spouse Marital status: service: No Current occupational status: retired Current gender identity: Male Special jesica needs: No Agree to transfusion: Yes Physical Exam Const: GENERAL APPEARANCE: cooperative; not lethargic ORIENTATION/CONSCIOUSNESS: Yes awake, Yes oriented to person, Yes oriented to place and Yes oriented to time; not lethargic HENMT: COMMON NORMALS: normocephalic, atraumatic and Normal external nose present HEAD & SCALP: normocephalic and atraumatic FACE & SINUS: normal facial exam and face symmetric NOSE: Normal external nose present and Normal nares present Eye: COMMON NORMALS: Equal, round and reactive pupils present and EOMs intact bilaterally PUPIL: Yes Equal, round and reactive pupils present Resp: COMMON NORMALS: normal respiratory effort, No use of accessory muscles and clear to auscultation bilaterally AUSCULTATION: clear to auscultation bilaterally Cardio: COMMON NORMALS: regular rate and regular rhythm RATE: regular rate RHYTHM: regular rhythm GI: COMMON NORMALS: Soft to palpation and non-tender PALPATION: Yes Soft to palpation Neuro: SENSORIUM/ORIENTATION: Yes oriented to person, Yes oriented to place, Yes oriented to time and No lethargic Course Vital Signs: Vital signs: Vital Signs Temperature 98.3 F 07/26/25 00:18 Pulse Rate 80 07/26/25 06:05 Respiratory Rate 17 07/26/25 06:05 Blood Pressure 147/76 07/26/25 06:05 Pulse Oximetry 98 07/26/25 06:05 Oxygen Delivery Me thod Room Air 07/26/25 06:02 MDM - Extremity (Nontraumatic) Medical Decision Making 59-year-old male status post BKA on the right. Complaint is some mild lethargy, couple episodes of vomiting at home. His incision looks superb. No leakage. No opening. No cellulitis. No warmth. His hemoglobin is 8, reflecting blood loss from surgery. Other CBC parameters are normal. BMP is not remarkable. Chest x-ray is nonacute. Urinalysis shows greater than 100 white blood cells with only 1+ leukocyte esterase. He is given a fluid bolus because his blood pressure was mildly soft. He is given 2 g of Rocephin IV here for urinary tract infection, which he appears to have had while he was here. Spoke with the hospitalist regarding potential admission. With normalization of his blood pressure, hemoglobin that is not at a transfusion level, and great appearing incision, he would not be a candidate for admission at this point. He is stable for discharge. Return for any new or worsening symptoms Lab Data 07/26/25 00:35 07/26/25 00:35 Radiology Impressions Chest X-Ray 07/26/25 00:52 IMPRESSION: No acute findings. Laboratory Results WBC 9.56 10^3/uL (3.29-11.43) 07/26/25 00:35 RBC 2.76 10^6/uL (3.85-5.65) L 07/26/25 00:35 Hgb 8.00 g/dL (11.27-16.99) L 07/26/25 00:35 Hct 24.5 % (37-53) L 07/26/25 00:35 MCV 88.8 fl (82-101) 07/26/25 00:35 MCH 29.0 pg (27-33) 07/26/25 00:35 MCHC 32.7 g/dL (30-55) 07/26/25 00:35 RDW 16.3 % (12.1-15.1) H 07/26/25 00:35 Plt Count 186 10^3/cmm (157-399) 07/26/25 00:35 MPV 9.0 fL (7.4-10.4) 07/26/25 00:35 Neut % (Auto) 67.1 % 07/26/25 00:35 Lymph % (Auto) 24.5 % 07/26/25 00:35 Sutter % (Auto) 6.6 % 07/26/25 00:35 Eos % (Auto) 0.5 % 07/26/25 00:35 Baso % (Auto) 0.6 % 07/26/25 00:35 Neut # (Auto) 6.41 10^3/uL (1.8-7.7) 07/26/25 00:35 Lymph # (Auto) 2.3 10^3/uL (0.8-4.8) 07/26/25 00:35 Sutter # (Auto) 0.6 10^3/uL (0.2-0.9) 07/26/25 00:35 Eos # (Auto) 0.1 10^3/uL (0.0-0.8) 07/26/25 00:35 Baso # (Auto) 0.1 10^3/uL (0.0-0.1) 07/26/25 00:35 Nucleated RBC % (auto) 0 % 07/26/25 00:35 Nucleated RBCs # 0.0 /100WBC 07/26/25 00:35 PT 14.70 SECONDS (12.1-14.9) 07/26/25 00:35 INR 1.07 (0.8-1.2) 07/26/25 00:35 Sodium 138 mmol/L (136-145) 07/26/25 00:35 Potassium 3.6 mmol/L (3.5-5.1) 07/26/25 00:35 Chloride 103 mmol/L (98-107) 07/26/25 00:35 Carbon Dioxide 28 mmol/L (22-29) 07/26/25 00:35 Anion Gap 10.6 (5-19) 07/26/25 00:35 BUN 13 mg/dL (8-23) 07/26/25 00:35 Creatinine 0.3 mg/dL (0.7-1.2) L 07/26/25 00:35 GFR Calculation 304.8 mL/min (90-130) H 07/26/25 00:35 Glucose 186 mg/dL (65-115) H 07/26/25 00:35 Calculated Osmolality 291 mOsm/kg (285-295) 07/26/25 00:35 Lactic Acid 1.1 mmol/L (0.5-2.2) 07/26/25 00:35 Calcium 8.2 mg/dL (8.5-10.5) L 07/26/25 00:35 Total Bilirubin 0.3 mg/dL (0.15-1.2) 07/26/25 00:35 AST 33 U/L (0-40) 07/26/25 00:35 ALT 17 U/L (0-41) 07/26/25 00:35 Alkaline Phosphatase 70 U/L (40-130) 07/26/25 00:35 Total Protein 5.7 g/dL (6.6-8.7) L 07/26/25 00:35 Albumin 3.1 g/dL (3.5-5.2) L 07/26/25 00:35 Globulin 2.6 g/dL (1.3-4.6) 07/26/25 00:35 Urine Color Yellow (Yellow) 07/26/25 02:36 Urine Appearance Cloudy (CLEAR) A 07/26/25 02:36 Urine pH 5.5 (5-7) 07/26/25 02:36 Ur Specific [place] 1.022 (1.005-1.030) 07/26/25 02:36 Urine Protein Negative (Negative) 07/26/25 02:36 Urine Glucose (UA) 3+ (Normal) H 07/26/25 02:36 Urine Ketones Negative (Negative) 07/26/25 02:36 Urine Blood Negative (Negative) 07/26/25 02:36 Urine Nitrate Negative (Negative) 07/26/25 02:36 Urine Bilirubin Negative (Negative) 07/26/25 02:36 Urine Urobilinogen 1.0 mg/dL (Negative) 07/26/25 02:36 Ur Leukocyte Esterase 1+ (Negative) A 07/26/25 02:36 Urine RBC 0-2 /hpf (0-2) 07/26/25 02:36 Urine WBC >100 /hpf (0-5) H 07/26/25 02:36 Ur Squamous Epith Cells 0-5 /hpf (0-5) 07/26/25 02:36 Amorphous Sediment Not Reportable 07/26/25 02:36 Urine Bacteria None seen /hpf (NONE) 07/26/25 02:36 Hyaline Casts 0-4 /lpf H 07/26/25 02:36 Urine Yeast 4+ /hpf H 07/26/25 02:36 All radiology interpretation(s) finalized by discharge Discharge Plan Discharge Patient Disposition: Home Clinical Impression: Acute UTI Condition: Stable Prescriptions: New amoxicillin-pot clavulanate 875-125 mg tablet 1 tab PO BID Qty: 14 0RF ondansetron 4 mg tablet,disintegrating 4 mg PO Q6H PRN (Reason: nausea and vomiting) Qty: 14 0RF No Action (DME) Afo to the left foot See Rx Instructions .Route .MEDSUPPLY Qty: 1 0RF Rx Instructions: As directed ([facility]) hospital bed with ability to elevated HOB to 30 degrees See Rx Instructions .Route .MEDSUPPLY Qty: 1 0RF Rx Instructions: As directed ([facility]) headgear, mask, hose and cpap supplies See Rx Instructions .Route .MEDSUPPLY Qty: 1 0RF Rx Instructions: As directed ([facility]) mDINR See Rx Instructions .Route .MEDSUPPLY Qty: 1 0RF Rx Instructions: As directed ([facility]) abel lift See Rx Instructions .Route .MEDSUPPLY Qty: 1 0RF Rx Instructions: As directed ([facility]) C pap-supplies See Rx Instructions .Route .MEDSUPPLY Qty: 1 12RF Rx Instructions: As directed vitamin B complex Tablet 1 tab PO DAILY Qty: 90 1RF ([facility]) Juzos wraps bilaterally See Rx Instructions .Route .MEDSUPPLY Qty: 1 0RF Rx Instructions: As directed ([facility]) Blood Glucose Test Strip See Rx Instructions .ROUTE .MEDSUPPLY Qty: 100 6RF Rx Instructions: As directed; to test 2 x day (DME) blood-glucose meter [Blood Glucose Monitoring] Kit See Rx Instructions .ROUTE .MEDSUPPLY Qty: 1 0RF Rx Instructions: As directed; pt to test 2 x day ([facility]) Comfort Touch Ult Thin Lancets 31 gauge misc See Rx Instructions .Route Qty: 100 5RF Rx Instructions: check blood sugars twice daily and PRN ergocalciferol (vitamin D2) 1,250 mcg (50,000 unit) capsule 50,000 unit PO .every 7 days Qty: 12 3RF (DME) insulin syringe-needle U-100 [BD Insulin Syringe Ultra-Fine] 1 mL 31 gauge x 5/16 syringe See Rx Instructions .ROUTE .COMPLEX Qty: 100 6RF Dose Instruction: USE TWICE DAILY with insulin Rx Instructions: USE TWICE DAILY with insulin (DME) auto-titrating cpap 6-16cm See Rx Instructions .Route .MEDSUPPLY Qty: 1 0RF Rx Instructions: As directed doxycycline hyclate 100 mg capsule 100 mg PO BID Qty: 28 0RF enoxaparin [Lovenox] 120 mg/0.8 mL syringe 120 mg SUBCUT Q12H Qty: 8 0RF (DME) wipes See Rx Instructions .Route .MEDSUPPLY Qty: 300 12RF Rx Instructions: As directed (DME) chucks See Rx Instructions .Route .MEDSUPPLY Qty: 100 12RF Rx Instructions: As directed citalopram 10 mg tablet 10 mg PO DAILY Qty: 90 0RF Rx Instructions: TAKE ONE TABLET BY MOUTH DAILY potassium citrate 10 mEq (1,080 mg) tablet extended release 10 meq PO BID Qty: 180 0RF Rx Instructions: TAKE ONE TABLET BY MOUTH DAILY (DME) pen needle, diabetic [Liz Pen Needle] 32 gauge x 5/32 needle See Rx Instructions .ROUTE .COMPLEX Qty: 1200 0RF Dose Instruction: USE DIRECTED FOR TWICE DAILY injections Rx Instructions: USE DIRECTED FOR TWICE DAILY injections warfarin 6 mg tablet 6 mg PO DAILY Rx Instructions: TAKE ONE TABLET BY MOUTH DAILY gabapentin 300 mg capsule 300 mg PO DAILY Rx Instructions: TAKE ONE CAPSULE BY MOUTH DAILY triamterene-hydrochlorothiazid 75-50 mg tablet 1 tab PO DAILY Rx Instructions: TAKE ONE TABLET BY MOUTH DAILY Novolin 70-30 FlexPen U-100 100 unit/mL (70-30) insulin pen 60 unit SUBCUT BID Rx Instructions: INJECT 60 UNITS SUBCUTANEOUSLY TWICE DAILY hydrocodone-acetaminophen 7.5-325 mg tablet 1 tab PO Q6H PRN (Reason: pain) Qty: 20 0RF cephalexin 500 mg capsule 500 mg PO Q8H 10 Days Qty: 30 0RF dapagliflozin propanediol [Farxiga] 10 mg tablet 10 mg PO DAILY Rx Instructions: TAKE ONE TABLET BY MOUTH DAILY Discharge Orders: Discharge ED (Routine); Ordered 07/26/25 Ordered By: Nabil Roe Referrals: Maureen Solorzano FNP [Primary Care Provider, Family Practice] - 1-3 days Patient Instructions: Urinary Tract Infection in Men (ED), Opioid Safety, Pain Management, Patient Portal & Phyllis Instructions Activity Restrictions/Additional Instructions: Antibiotics as directed. Drink plenty of liquids. Return for problems. Follow-up with your doctor later this week. Urine should be retested to make sure infection is clearing. Repeat blood count would be ideal to make sure rebounding from surgery appropriately. Print Language: Ghanaian Coding Level of Care Code ED Representative Government Relations for Jose F Alvarez
[2025-07-26 01:35] LABS: Alanine Aminotransferase 17 U/L (0-41); Albumin Level 3.1 g/dL (3.5-5.2); Alkaline Phosphatase 70 U/L (40-130); Anion Gap 10.6 (5-19); Aspartate Amino Transferase 33 U/L (0-40); Blood Urea Nitrogen 13 mg/dL (8-23); Calcium 8.2 mg/dL (8.5-10.5); Carbon Dioxide 28 mmol/L (22-29); Chloride 103 mmol/L (98-107); Globulin 2.6 g/dL (1.3-4.6); Glucose 186 mg/dL (65-115); Lactic Sepsis W/Reflex 1.1 mmol/L (0.5-2.2); Osmolality Calculated 291 mOsm/kg (285-295); Potassium 3.6 mmol/L (3.5-5.1); Sodium 138 mmol/L (136-145); Total Protein 5.7 g/dL (6.6-8.7)
[2025-07-26 01:40] LABS: Creatinine Clr Calc Pharmacy 325.1464
[2025-07-26 01:41] LABS: INR 1.07 (0.8-1.2); Prothrombin Time 14.70 SECONDS (12.1-14.9)
[2025-07-26 03:49] LABS: Glucose Urine UA 3+ (Normal); Nitrate Urine Negative (Negative); Specific Gravity, Urine 1.022 (1.005-1.030)
[2025-07-26 03:54] LABS: Add Urine Microscopic? YES
[2025-07-26 04:16] LABS: UA Slide Review UA Slide Review Perf
[2025-07-26] MEDS: cefTRIAXone 2,000 mg SDV 2000 MG IVP (04:42)
== END 2025-07-26 06:07 | disposition home or self-care (01) ==
PROVIDERS: Emergency Provider Emergency Medicine; PCP Nurse Practitioner Family
DX: N39.0 Urinary tract infection, site not specified (principal); Z79.01 Long term (current) use of anticoagulants; I10 Essential (primary) hypertension; E11.40 Type 2 diabetes mellitus with diabetic neuropathy, unspecified
CPT/HCPCS: 36415; 71045; 80053; 81001; 83605; 85025; 85610; 87040; 87086; 96361; 96374; 99284; J0696; J7030

== ENCOUNTER → 2025-07-30 08:08 | Outpatient (BNVA) | payer MEDICARE, MEDICAID, SELFPAY | PROVIDERS: PCP Nurse Practitioner Family; Visit Provider Nurse Practitioner Family | DX: N39.0 Urinary tract infection, site not specified (principal) | CPT/HCPCS: 81000; 85025 ==

== ENCOUNTER → 2025-08-03 12:25 | Outpatient (BNVA) | payer MEDICARE, MEDICAID, SELFPAY | PROVIDERS: PCP Nurse Practitioner Family; Visit Provider Nurse Practitioner Family | DX: D64.9 Anemia, unspecified (principal); Z86.718 Personal history of other venous thrombosis and embolism | CPT/HCPCS: 85025; 85610 ==

== ENCOUNTER → 2025-08-05 12:42 | Outpatient (BNVA) | payer MEDICARE, MEDICAID, SELFPAY | PROVIDERS: PCP Nurse Practitioner Family; Visit Provider Nurse Practitioner Family | DX: N39.0 Urinary tract infection, site not specified (principal) | CPT/HCPCS: 81003; 87086 ==

== ENCOUNTER → 2025-08-18 13:27 | Outpatient (BNVA) | payer MEDICARE, MEDICAID, SELFPAY | PROVIDERS: PCP Nurse Practitioner Family; Visit Provider Podiatrist Foot & Ankle Surgery | DX: E11.65 Type 2 diabetes mellitus with hyperglycemia (principal); Z79.4 Long term (current) use of insulin; I87.2 Venous insufficiency (chronic) (peripheral); S81.802A Unspecified open wound, left lower leg, initial encounter; I73.9 Peripheral vascular disease, unspecified; X58.XXXA Exposure to other specified factors, initial encounter | CPT/HCPCS: 99213 ==

== ENCOUNTER → 2025-08-19 09:26 | Outpatient (BNVA) | payer MEDICARE, MEDICAID, SELFPAY | PROVIDERS: PCP Nurse Practitioner Family; Visit Provider Nurse Practitioner Family | DX: I10 Essential (primary) hypertension (principal); Z86.718 Personal history of other venous thrombosis and embolism | CPT/HCPCS: 80048; 85025; 85610 ==

== ENCOUNTER → 2025-09-02 13:03 | Outpatient (BNVA) | payer MEDICARE, MEDICAID, SELFPAY | PROVIDERS: PCP Nurse Practitioner Family; Visit Provider Podiatrist Foot & Ankle Surgery | DX: E11.65 Type 2 diabetes mellitus with hyperglycemia (principal); Z79.4 Long term (current) use of insulin; I87.2 Venous insufficiency (chronic) (peripheral); S81.802A Unspecified open wound, left lower leg, initial encounter; I73.9 Peripheral vascular disease, unspecified; Z89.611 Acquired absence of right leg above knee; X58.XXXA Exposure to other specified factors, initial encounter | CPT/HCPCS: 99213 ==

== ENCOUNTER → 2025-09-15 14:17 | Outpatient (BNVA) | payer MEDICARE, MEDICAID, SELFPAY | PROVIDERS: PCP Nurse Practitioner Family; Visit Provider Podiatrist Foot & Ankle Surgery | DX: E11.65 Type 2 diabetes mellitus with hyperglycemia (principal); Z79.4 Long term (current) use of insulin; I87.2 Venous insufficiency (chronic) (peripheral); S81.802A Unspecified open wound, left lower leg, initial encounter; I73.9 Peripheral vascular disease, unspecified; X58.XXXA Exposure to other specified factors, initial encounter | CPT/HCPCS: 99213 ==

== ENCOUNTER 2025-09-28 05:00 | Outpatient (RCR) | payer MEDICARE, MEDICAID, SELFPAY | END 2025-10-28 23:59 | disposition home or self-care (01) | LOC: SOT 05:00 | PROVIDERS: Visit Provider Nurse Practitioner Family | DX: G71.00 Muscular dystrophy, unspecified (principal) | CPT/HCPCS: 11042; 97167; 97597; 97598 ==

== ENCOUNTER → 2025-10-06 14:19 | Outpatient (BNVA) | payer MEDICARE, MEDICAID, SELFPAY | PROVIDERS: PCP Nurse Practitioner Family; Visit Provider Podiatrist Foot & Ankle Surgery | DX: E11.65 Type 2 diabetes mellitus with hyperglycemia (principal); Z79.4 Long term (current) use of insulin; I87.2 Venous insufficiency (chronic) (peripheral); I73.9 Peripheral vascular disease, unspecified; L97.829 Non-pressure chronic ulcer of other part of left lower leg with unspecified severity | CPT/HCPCS: 99213 ==

== ENCOUNTER → 2025-10-13 13:51 | Outpatient (BNVA) | payer MEDICARE, MEDICAID, SELFPAY | PROVIDERS: PCP Nurse Practitioner Family; Visit Provider Podiatrist Foot & Ankle Surgery | DX: E11.65 Type 2 diabetes mellitus with hyperglycemia (principal); Z79.4 Long term (current) use of insulin; I87.2 Venous insufficiency (chronic) (peripheral); S81.802A Unspecified open wound, left lower leg, initial encounter; I73.9 Peripheral vascular disease, unspecified; S81.802D Unspecified open wound, left lower leg, subsequent encounter; X58.XXXD Exposure to other specified factors, subsequent encounter; Z89.611 Acquired absence of right leg above knee; T81.31XA Disruption of external operation (surgical) wound, not elsewhere classified, initial encounter; Y83.8 Other surgical procedures as the cause of abnormal reaction of the patient, or of later complication, without mention of misadventure at the time of the procedure | CPT/HCPCS: 99213 ==

== ENCOUNTER → 2025-10-19 11:23 | Outpatient (BNVA) | payer MEDICARE, MEDICAID, SELFPAY | PROVIDERS: Visit Provider Thoracic Surgery (Cardiothoracic Vascular Surgery) | DX: I96 Gangrene, not elsewhere classified (principal); I87.2 Venous insufficiency (chronic) (peripheral); L97.821 Non-pressure chronic ulcer of other part of left lower leg limited to breakdown of skin; L97.321 Non-pressure chronic ulcer of left ankle limited to breakdown of skin; T87.81 Dehiscence of amputation stump; Y83.8 Other surgical procedures as the cause of abnormal reaction of the patient, or of later complication, without mention of misadventure at the time of the procedure; Z89.611 Acquired absence of right leg above knee | CPT/HCPCS: 11042; 97597; 97598; 97605; A6252 ==

== ENCOUNTER → 2025-10-26 10:48 | Outpatient (BNVA) | payer MEDICARE, MEDICAID, SELFPAY | PROVIDERS: PCP Nurse Practitioner Family; Visit Provider Thoracic Surgery (Cardiothoracic Vascular Surgery) | DX: I96 Gangrene, not elsewhere classified (principal); L97.821 Non-pressure chronic ulcer of other part of left lower leg limited to breakdown of skin; L97.321 Non-pressure chronic ulcer of left ankle limited to breakdown of skin; T87.81 Dehiscence of amputation stump; Y83.8 Other surgical procedures as the cause of abnormal reaction of the patient, or of later complication, without mention of misadventure at the time of the procedure; Z89.611 Acquired absence of right leg above knee | CPT/HCPCS: 11042; 97597; 97598; A6237; A6252; A6253 ==